=== PATIENT | female | born 1950 | race Caucasian/White ===

== ENCOUNTER → 2019-05-22 | Outpatient (CLI) | payer MEDICARE ==
[2019-05-22 08:59] LABS: Basophils # (A) 0.1 k/uL (0-0.2); Basophils % (A) 1 %; Eosinophils # (A) 0.3 k/uL (0-0.7); Eosinophils % (A) 5 %; HCT 44.9 % (34.0-46.0); HGB 14.9 gm/dL (11.4-16.0); Lymphocytes # (A) 2.2 k/uL (1.0-4.8); Lymphocytes % (A) 35 %; MCH 32.9 pg (25.0-35.0); MCHC 33.1 g/dL (31.0-37.0); MCV 99.2 fL (80.0-100.0); Mean Platelet Volume 7.4; Monocytes # (A) 0.5 k/uL (0-1.0); Monocytes % (A) 7 %; Neutrophils % (A) 47 %; Platelet Count 226 k/uL (150-450); RBC 4.53 m/uL (3.80-5.40); RDW 12.7 % (11.5-15.5); WBC 6.3 k/uL (3.8-10.6)
[2019-05-22 15:57] LABS: African American GFR (CKD) 59.3 (60.0-200.0); Albumin 4.2 g/dL (3.80-4.90); Anion Gap 9.3 mmol/L (4.00-12.00); BUN/Creat Ratio 10.91 Ratio (12.00-20.00); Calcium 9.4 mg/dL (8.7-10.3); Carbon Dioxide 27.7 mmol/L (21.6-31.8); Chol/HDL Ratio 2.65; Globulin 2.1 g/dL (1.6-3.3); LDL Cholesterol,Calculated 117.4 mg/dL (0.0-131.0); Non-African American GFR(CKD) 51.2 (60.0-200.0); Potassium 4.5 mmol/L (3.5-5.5); Total Bilirubin 0.3 mg/dL (0.2-1.2); Total Protein 6.3 g/dL (6.2-8.2); VLDL Calculation 17.6 mg/dL (5.00-40.00)
== END | disposition home or self-care (01) ==
LOC: LABWHC1 07:51
PROVIDERS: ATTEND Internal Medicine Critical Care Medicine
DX: Z00.00 Encounter for general adult medical examination without abnormal findings (principal); E78.00 Pure hypercholesterolemia, unspecified; E03.9 Hypothyroidism, unspecified; J44.9 Chronic obstructive pulmonary disease, unspecified
CPT/HCPCS: 36415; 80053; 80061; 84439; 84443; 85025

== ENCOUNTER 2019-07-09 06:36 | Inpatient (IN) | payer MEDICARE ==
[2019-07-09] MEDS ORDERED: IPRATROPIUM-ALBUTEROL 3 ML NEB INHALATION STA ×2 (06:55→06:58)
[2019-07-09] MEDS ORDERED: methylPREDNISolone SOD SUCCI 125 MG/2 ML VIAL IV STA (06:59)
[2019-07-09 07:23] LABS: Basophils % (A) 0 %; Eosinophils # (A) 0.1 k/uL (0-0.7); Eosinophils % (A) 1 %; HCT 40.4 % (34.0-46.0); HGB 13.5 gm/dL (11.4-16.0); Lymphocytes % (A) 7 %; MCH 32.6 pg (25.0-35.0); MCHC 33.4 g/dL (31.0-37.0); MCV 97.5 fL (80.0-100.0); Mean Platelet Volume 7.8; Monocytes # (A) 1.1 k/uL (0-1.0); Monocytes % (A) 8 %; Neutrophils # (A) 11.4 k/uL (1.3-7.7); Neutrophils % (A) 82 %; Platelet Count 295 k/uL (150-450); RBC 4.15 m/uL (3.80-5.40); RDW 13.2 % (11.5-15.5); WBC 13.9 k/uL (3.8-10.6)
[2019-07-09] MEDS ORDERED: cefTRIAXone IN SWFI 1,000 MG/10 ML SYRINGE IVP STA (07:25)
[2019-07-09] MEDS ORDERED: AZITHROMYCIN 500 MG in SODIUM CHLORIDE 0.9% 250 ML IVPB STA (07:25)
[2019-07-09 07:34] LABS: ALT 33 U/L (9-52); AST 20 U/L (14-36); African American GFR (CKD) >90 (>60 ml/min/1.73 sqM); Albumin 3.9 g/dL (3.5-5.0); Alkaline Phosphatase 94 U/L (38-126); Anion Gap 8 mmol/L; Blood Urea Nitrogen 11 mg/dL (7-17); Calcium 9.1 mg/dL (8.4-10.2); Carbon Dioxide 28 mmol/L (22-30); Chloride 104 mmol/L (98-107); Glucose 101 mg/dL (74-99); INR 0.9 (<1.2); Magnesium 2.1 mg/dL (1.6-2.3); Non-African American GFR(CKD) 88 (>60 ml/min/1.73 sqM); Partial Thromboplastin Time 26.1 sec (22.0-30.0); Prothrombin Time 9.7 sec (9.0-12.0); Sodium 140 mmol/L (137-145); Total Bilirubin 0.6 mg/dL (0.2-1.3); Total Protein 7.1 g/dL (6.3-8.2)
--- NOTE | 2019-07-09 07:36 | ED ---
General Adult HPI - General Source: patient, family, RN notes reviewed Mode of arrival: wheelchair Limitations: no limitations <Wesley Vargas - Last Filed: 07/09/19 08:52> <Queenie Brown - Last Filed: 07/09/19 23:11> - General Chief complaint: Shortness of Breath Stated complaint: RUCHI Time Seen by Provider: 07/09/19 06:51 - History of Present Illness Initial comments: 69-year-old female with a past history of COPD presents to the emergency department for shortness of breath. Patient states she has had a cough and cold for the past several days. States that 2 days ago this started to resolve but she started to feel more short of breath. States she thinks her COPD is "acting up." She denies fevers or chills. She states that she cannot catch her breath. States that when she stands up this gets worse. It is better at rest. She denies chest pain. Patient does not have a nebulizer at home but has been using inhaler.Patient has no other complaints at this time including chest pain, abdominal pain, nausea or vomiting, headache, or visual changes. (Wseley Vargas) - Related Data Home Medications Medication Instructions Recorded Confirmed Albuterol Sulfate [Ventolin HFA] 1 - 2 puff INHALATION RT-Q6H PRN 07/09/19 07/09/19 Cholecalciferol [Vitamin D3 (25 1,000 unit PO DAILY 07/09/19 07/09/19 Mcg = 1000 Iu)] Ibuprofen [Motrin Ib] 400 mg PO Q6H PRN 07/09/19 07/09/19 Umeclidinium Brm/Vilanterol Tr 1 puff INHALATION RT-DAILY 07/09/19 07/09/19 [Anoro Ellipta 62.5-25 Mcg INH] Allergies Allergy/AdvReac Type Severity Reaction Status Date / Time No Known Allergies Allergy Verified 07/09/19 08:11 Review of Systems ROS Other: All systems not noted in ROS Statement are negative. <Wesley Vargas - Last Filed: 07/09/19 08:52> ROS Other: All systems not noted in ROS Statement are negative. <Queenie Brown - Last Filed: 07/09/19 23:11> ROS Statement: Those systems with pertinent positive or pertinent negative responses have been documented in the HPI. Past Medical History Past Medical History: COPD History of Any Multi-Drug Resistant Organisms: None Reported Past Surgical History: Cholecystectomy Past Psychological History: No Psychological Hx Reported Smoking Status: Current every day smoker Past Alcohol Use History: None Reported Past Drug Use History: None Reported <Wesley Vargas P - Last Filed: 07/09/19 08:52> General Exam Limitations: no limitations General appearance: alert, in no apparent distress Head exam: Present: atraumatic, normocephalic, normal inspection Eye exam: Present: normal appearance, PERRL, EOMI. Absent: scleral icterus, conjunctival injection, periorbital swelling ENT exam: Present: normal exam, mucous membranes moist Neck exam: Present: normal inspection, full ROM. Absent: tenderness, meningismus, lymphadenopathy Respiratory exam: Present: accessory muscle use, decreased breath sounds (greatly diminished breath sounds bilaterally, pursed lip breathing). Absent: respiratory distress, wheezes, rales, rhonchi, stridor Cardiovascular Exam: Present: regular rate, normal rhythm, normal heart sounds. Absent: systolic murmur, diastolic murmur, rubs, gallop, clicks Neurological exam: Present: alert <Wesley Vargas P - Last Filed: 07/09/19 08:52> Course <Wesley Vargas P - Last Filed: 07/09/19 08:52> Vital Signs 07/09/19 07/09/19 07/09/19 06:49 07:28 07:38 Temperature 98.1 F Pulse Rate 121 H 102 H 102 H Respiratory 40 H Rate Blood Pressure 145/95 O2 Sat by Pulse 85 L Oximetry 07/09/19 07/09/19 07/09/19 07:39 07:51 08:14 Temperature Pulse Rate 96 104 H 94 Respiratory 24 Rate Blood Pressure 127/66 O2 Sat by Pulse 97 Oximetry 07/09/19 07/09/19 07/09/19 09:00 09:30 10:00 Temperature Pulse Rate 93 90 Respiratory 23 24 21 Rate Blood Pressure 129/64 123/92 122/78 O2 Sat by Pulse 96 97 94 L Oximetry 07/09/19 07/09/19 07/09/19 10:30 11:00 11:30 Temperature Pulse Rate Respiratory 22 20 Rate Blood Pressure 121/75 121/86 126/75 O2 Sat by Pulse 95 95 95 Oximetry 07/09/19 07/09/19 07/09/19 12:00 12:30 13:00 Temperature Pulse Rate Respiratory Rate Blood Pressure 117/65 121/80 131/82 O2 Sat by Pulse 96 97 96 Oximetry 07/09/19 07/09/19 07/09/19 13:30 14:00 14:30 Temperature Pulse Rate 92 Respiratory 21 Rate Blood Pressure 124/72 131/99 134/89 O2 Sat by Pulse 95 93 L Oximetry - Reevaluation(s) Reevaluation #1: 07/09/19 07:37 sinus tachycardia, ventricular rate 102, VA interval 120, QTC 466 (Wesley Vargas) Medical Decision Making - Lab Data Result diagrams: 07/09/19 07:10 07/09/19 07:10 <Wesley Vargas - Last Filed: 07/09/19 08:52> - Lab Data Result diagrams: 07/09/19 07:10 07/09/19 07:10 <Queenie Brown - Last Filed: 07/09/19 23:11> - Medical Decision Making patient initially hypoxic and tachycardic, started on BiPAP. She did have improvement in symptoms on this. CBC shows a white count of 13.9. CMP unremarkable.chest x-ray shows COPD correlate for right basilar pneumonia. lactic wnl. Patient was started on Rocephin and azithromycin. She was given 500 mL bolus of fluids. Dr. Walter is listed as patient's primary care, states this is the only doctor she sees. Dr. Brown did speak with Dr. Rooney's PA to offer admission to their service. At this time she recommends admitting to [facility] and called the consulting Dr. Walter. Patient reevaluated prior to admission, feeling much better on BiPAP, comfortable at this time. (Wesley Vargas) I was available for consultation in the emergency department. The history and physical exam were done by the midlevel provider. I was consulted for this patients care. I reviewed the case with the midlevel provider and based on their presentation of the patient, I agree with the assessment, medical decision making and plan of care as documented. I discussed the case with Dr. Lisa who accepted admission and Dr. Bashas PA accepted consult on the patient Chart was dictated using [employer] dictation software. Attempts were made to correct any dictation errors however some typographical errors may persist. (Queenie Brown) - Lab Data Lab Results 07/09/19 07/09/19 07/09/19 Range/Units 07:10 07:10 07:10 WBC 13.9 H (3.8-10.6) k/uL RBC 4.15 (3.80-5.40) m/uL Hgb 13.5 (11.4-16.0) gm/dL Hct 40.4 (34.0-46.0) % MCV 97.5 (80.0-100.0) fL MCH 32.6 (25.0-35.0) pg MCHC 33.4 (31.0-37.0) g/dL RDW 13.2 (11.5-15.5) % Plt Count 295 (150-450) k/uL Neutrophils % 82 % Lymphocytes % 7 % Monocytes % 8 % Eosinophils % 1 % Basophils % 0 % Neutrophils # 11.4 H (1.3-7.7) k/uL Lymphocytes # 1.0 (1.0-4.8) k/uL Monocytes # 1.1 H (0-1.0) k/uL Eosinophils # 0.1 (0-0.7) k/uL Basophils # 0.0 (0-0.2) k/uL PT 9.7 (9.0-12.0) sec INR 0.9 (<1.2) APTT 26.1 (22.0-30.0) sec Sodium 140 (137-145) mmol/L Potassium 4.0 (3.5-5.1) mmol/L Chloride 104 (98-107) mmol/L Carbon Dioxide 28 (22-30) mmol/L Anion Gap 8 mmol/L BUN 11 (7-17) mg/dL Creatinine 0.71 (0.52-1.04) mg/dL Est GFR (CKD-EPI)AfAm >90 (>60 ml/min/1.73 sqM) Est GFR (CKD-EPI)NonAf 88 (>60 ml/min/1.73 sqM) Glucose 101 H (74-99) mg/dL Plasma Lactic Acid Nando (0.7-2.0) mmol/L Calcium 9.1 (8.4-10.2) mg/dL Magnesium 2.1 (1.6-2.3) mg/dL Total Bilirubin 0.6 (0.2-1.3) mg/dL AST 20 (14-36) U/L ALT 33 (9-52) U/L Alkaline Phosphatase 94 (38-126) U/L Troponin I (0.000-0.034) ng/mL NT-Pro-B Natriuret Pep pg/mL Total Protein 7.1 (6.3-8.2) g/dL Albumin 3.9 (3.5-5.0) g/dL 07/09/19 07/09/19 07/09/19 Range/Units 07:10 07:10 07:10 WBC (3.8-10.6) k/uL RBC (3.80-5.40) m/uL Hgb (11.4-16.0) gm/dL Hct (34.0-46.0) % MCV (80.0-100.0) fL MCH (25.0-35.0) pg MCHC (31.0-37.0) g/dL RDW (11.5-15.5) % Plt Count (150-450) k/uL Neutrophils % % Lymphocytes % % Monocytes % % Eosinophils % % Basophils % % Neutrophils # (1.3-7.7) k/uL Lymphocytes # (1.0-4.8) k/uL Monocytes # (0-1.0) k/uL Eosinophils # (0-0.7) k/uL Basophils # (0-0.2) k/uL PT (9.0-12.0) sec INR (<1.2) APTT (22.0-30.0) sec Sodium (137-145) mmol/L Potassium (3.5-5.1) mmol/L Chloride (98-107) mmol/L Carbon Dioxide (22-30) mmol/L Anion Gap mmol/L BUN (7-17) mg/dL Creatinine (0.52-1.04) mg/dL Est GFR (CKD-EPI)AfAm (>60 ml/min/1.73 sqM) Est GFR (CKD-EPI)NonAf (>60 ml/min/1.73 sqM) Glucose (74-99) mg/dL Plasma Lactic Acid Nando 1.0 (0.7-2.0) mmol/L Calcium (8.4-10.2) mg/dL Magnesium (1.6-2.3) mg/dL Total Bilirubin (0.2-1.3) mg/dL AST (14-36) U/L ALT (9-52) U/L Alkaline Phosphatase (38-126) U/L Troponin I <0.012 (0.000-0.034) ng/mL NT-Pro-B Natriuret Pep 319 pg/mL Total Protein (6.3-8.2) g/dL Albumin (3.5-5.0) g/dL Disposition Is patient prescribed a controlled substance at d/c from ED?: No Time of Disposition: 08:53 <Wesley Vargas P - Last Filed: 07/09/19 08:52> <Queenie Brown A - Last Filed: 07/09/19 23:11> Clinical Impression: Respiratory failure, Hypoxia, Pneumonia Disposition: ADMITTED IP TO THIS HOSP Condition: Fair
--- NOTE | 2019-07-09 07:56 | XR ---
EXAMINATION TYPE: XR chest 1V portable DATE OF EXAM: 07/09/2019 COMPARISON: 01/10/2018 HISTORY: Shortness of breath TECHNIQUE: Single frontal view of the chest is obtained. FINDINGS: There is hyperinflation with right basilar subsegmental consolidation. Hypertrophic change of the spine. No overt failure. Pulmonary arteries prominent correlate for pulmonary arterial hypert ension. Surgical clips in the right upper quadrant noted. IMPRESSION: COPD correlate for right basilar pneumonia.
[2019-07-09] MEDS ORDERED: SODIUM CHLORIDE 0.9% 500 ML 500 ML IV STA (08:08)
[2019-07-09] MEDS ORDERED: PNEUMOCOCCAL VACC-PNEUMOVAX 23 25 MCG/0.5 ML VIAL IM ONE (10:33)
--- NOTE | 2019-07-09 14:18 | P.HPIM ---
History of Present Illness This is a pleasant 69 years old female with past medical history of COPD and osteoarthritis, cigarette smoker. she follows with Dr. Blevins and as an outpatient was also her family doctor. . Presents because of dyspnea . Patient had come called about 10 days ago however since Monday she started getting more short of breath associated with cough and phlegm, possible clear or an normal color. Associated with chest tightness and some chest pain which is resolved now. Patient smokes about half pack per day and quit about 3 weeks ago. No alcohol. Patient denies abdominal pain or nausea vomiting. No change in urine or bowel h abits. No fever on admission patient was tachycardic at 121 and tachypneic at 40, Vitas looks stable.. Labs reviewed showing mild leukocytosis of 13.9 K, however electrolytes, creatinine, liver enzymes and troponin are within normal limits, proBNP is 319. EKG showing sinus tachycardia at [address]-T changes. QTC is 466. Chest x-ray: COPD and possible right basal pneumonia. In the emergency room patient was started on Zithromax and Rocephin, she was given steroids and IV fluids. Review of Systems CONSTITUTIONAL: No fever, no malaise, no fatigue. HEENT: No recent visual problems or hearing problems. Denied any sore throat. CARDIOVASCULAR: No orthopnea, PND, no palpitations, no syncope. PULMONARY: no hemoptysis. GASTROINTESTINAL: No diarrhea, no nausea, no vomiting, no abdominal pain. Normoactive bowel sounds. NEUROLOGICAL: No headaches, no weakness, no numbness. HEMATOLOGICAL: Denies any bleeding or petechiae. GENITOURINARY: Denies any burning micturition, frequency, or urgency. MUSCULOSKELETAL/RHEUMATOLOGICAL: Denies any joint pain, swelling, or any muscle pain. ENDOCRINE: Denies any polyuria or polydipsia. Past Medical History Past Medical History: COPD, Osteoarthritis (OA) Additional Past Medical History / Comment(s): Arthritis in bilateral hands History of Any Multi-Drug Resistant Organisms: None Reported Past Surgical History: Cholecystectomy, Tonsillectomy Past Anesthesia/Blood Transfusion Reactions: No Reported Reaction Smoking Status: Current some day smoker - Past Family History Father Family Medical History: Cancer Additional Family Medical History / Comment(s): Father of lung cancer at the age of 52 yrs. He was a ex smoker. Mother Family Medical History: Congestive Heart Failure (CHF) Additional Family Medical History / Comment(s): Mother of CHF at the age of 79yrs. Medications and Allergies Home Medications Medication Instructions Recorded Confirmed Type Albuterol Sulfate [Ventolin HFA] 1 - 2 puff INHALATION RT-Q6H PRN 07/09/19 07/09/19 History Cholecalciferol [Vitamin D3 (25 1,000 unit PO DAILY 07/09/19 07/09/19 History Mcg = 1000 Iu)] Ibuprofen [Motrin Ib] 400 mg PO Q6H PRN 07/09/19 07/09/19 History Umeclidinium Brm/Vilanterol Tr 1 puff INHALATION RT-DAILY 07/09/19 07/09/19 History [Anoro Ellipta 62.5-25 Mcg INH] Allergies Allergy/AdvReac Type Severity Reaction Status Date / Time No Known Allergies Allergy Verified 07/09/19 08:11 Physical Exam Vitals: Vital Signs Temp Pulse Resp BP Pulse Ox 07/09/19 13:30 124/72 95 07/09/19 13:00 131/82 96 07/09/19 12:30 121/80 97 07/09/19 12:00 117/65 96 07/09/19 11:30 20 126/75 95 07/09/19 11:00 121/86 95 07/09/19 10:30 22 121/75 95 07/09/19 10:00 21 122/78 94 L 07/09/19 09:30 90 24 123/92 97 07/09/19 09:00 93 23 129/64 96 07/09/19 08:14 94 24 127/66 97 07/09/19 07:51 104 H 07/09/19 07:39 96 07/09/19 07:38 102 H 07/09/19 07:28 102 H 07/09/19 06:49 98.1 F 121 H 40 H 145/95 85 L Intake and Output 07/08/19 07/09/19 07/09/19 22:59 06:59 14:59 Other: Weight 58.967 kg 58.967 kg GENERAL: The patient is alert and oriented x3, not in any acute distress. Well developed, well nourished. HEENT: Pupils are round and equally reacting to light. EOMI. No scleral icterus. No conjunctival pallor. Normocephalic, atraumatic. No pharyngeal erythema. No thyromegaly. CARDIOVASCULAR: S1 and S2 present. No murmurs, rubs, or gallops. -PULMONARY: Chest is clear to auscultation, decreased air entry on both sides, scattered wheezing. And right basal crepitation ABDOMEN: Soft, nontender, nondistended, normoactive bowel sounds. No palpable organomegaly. MUSCULOSKELETAL: No joint swelling or deformity. EXTREMITIES: No cyanosis, clubbing, or pedal edema. NEUROLOGICAL: Gross neurological examination did not reveal any focal deficits. SKIN: No rashes. No petechiae Results CBC & Chem 7: 07/09/19 07:10 07/09/19 07:10 Labs: Abnormal Lab Results - Last 24 Hours (Table) 07/09/19 07/09/19 Range/Units 07:10 07:10 WBC 13.9 H (3.8-10.6) k/uL Neutrophils # 11.4 H (1.3-7.7) k/uL Monocytes # 1.1 H (0-1.0) k/uL Glucose 101 H (74-99) mg/dL Thrombosis Risk Factor Assmnt - Choose All That Apply Any of the Below Risk Factors Present?: Yes Each Factor Represents 1 point: Abnormal pulmonary function (COPD), Serious lung disease incl. pneumonia (< 1month) Each Risk Factor Represents 2 Points: Age 61-74 years Other congenital or acquired thrombophilia - If yes, enter type in comment: No Thrombosis Risk Factor Assessment Total Risk Factor Score: 4 Thrombosis Risk Factor Assessment Level: Moderate Risk Assessment and Plan Assessment: Acute COPD exacerbation possible right basal committing acquired pneumonia Nicotine dependence Osteoarthritis Plan: This is a pleasant 69 years old female who presents with COPD and pneumonia. Continue with antibiotics and steroids. Continue with bronchodilators. Gentle hydration. Labs and medication were reviewed.. Continue same treatment. Continue with symptomatic treatment. Resume home medication. Monitor lytes and vitals. DVT and GI prophylaxis. Further recommendations of the clinical course of the patient DVT prophylaxis: Subcutaneous heparin GI Prophylaxis: Pepcid PT/OT: Pending Prognosis is guarded
[2019-07-09] MEDS: methylPREDNISolone SOD SUCCI 125 MG/2 ML VIAL IV SCH ×3 (14:22→23:59)
[2019-07-09] MEDS: SODIUM CHLORIDE 0.9% 1,000 ML IV SCH (14:34)
[2019-07-09] MEDS: IPRATROPIUM-ALBUTEROL 3 ML NEB INHALATION PRN ×2 (16:03→20:41)
--- NOTE | 2019-07-09 17:09 | CONS ---
CONSULTATION PULMONARY/CRITICAL CARE CONSULTATION: DATE OF CONSULTATION: July 09, 2019 REASON FOR CONSULTATION: Shortness of breath. HISTORY OF PRESENT ILLNESS: This is a 69-year-old female who sees my partner Dr. Walter as her family doctor and also has her concert singer. She apparently presents to the emergency room on July 09 with complaints of increasing shortness of breath. Apparently her shortness of breath has been going on for a couple days. She has been apparently battling a cold and cough for a number of days as well. She started coughing up some phlegm. It was slightly yellow in color. She has chest tightness, wheezing and shortness of breath. She had lots of chest congestion. Initially when she came in, she could not "catch her breath". Apparently when she gets up and walks or when she stands, the breathing gets worse. The patient apparently has been using her breathing medications at home and her nebulizer machine without much better benefit. For that reason, she came into the emergency room to be evaluated. 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 This is where we evaluate the patient. She is feeling much better. A BiPAP device was in the room. She is currently not using it. She does feel much improved. HOME MEDICATIONS: Include albuterol inhaler, vitamin D3, Motrin, and Anoro. ALLERGIES: Denied. MEDICAL HISTORY: Primarily severe COPD. SURGICAL HISTORY: Includes cholecystectomy. SOCIAL HISTORY: Positive for ongoing and current and significant tobacco user. She denies any alcohol use or illicit drug use. ALLERGIES: Allergies denied. FAMILY HISTORY: Otherwise unremarkable. Parents were apparently healthy. REVIEW OF SYSTEMS: CONSTITUTIONAL negative. NEUROLOGIC negative. HEENT negative. CARDIOVASCULAR negative. PULMONARY shortness of breath, chest tightness, wheezing, cough, chest congestion and phlegm production. GI negative. negative. RHEUMATOLOGIC negative. IMMUNOLOGIC negative ENDOCRINOLOGIC negative. DERMATOLOGIC negative. PHYSICAL EXAMINATION: VITAL SIGNS: Current vital signs are reviewed. Her temperature is 98.1. Heart rate 92, respiratory rate 16, blood pressure 134/89, mean 104, 3 L saturation 93%. GENERAL: Appears in no acute distress. HEENT examination is grossly unremarkable. Mucous membranes are moist. No oral lesions. NECK: Supple. Full range of motion. No adenopathy or thyromegaly. Neck veins are flat. CARDIOVASCULAR examination reveals regular rhythm and rate. Heart rate about mid 80s. S1, S2 normal. No distinct murmur. No S3, S4. LUNGS: Reveal severely diminished breath sounds throughout. She has expiratory wheezes and rhonchi. There is prolongation on forced maneuver. Adventitious lung sounds are more prominent on forced maneuver. ABDOMEN: Soft. Bowel sounds are heard. EXTREMITIES are intact. No cyanosis, clubbing, or edema. SKIN: Without rash. NEUROLOGIC: Examination is brief but nonfocal. X-RAY: That was done on day of admission shows a possible infiltrate in the right lower lobe. Upper lung coley look relatively clear. There is some hyperlucency and hyperinflation consistent with a diagnosis of COPD. LABS: Reviewed. White count 13.9, hemoglobin 13.5, hematocrit 40.4, platelet count 395,000. PT/INR, PTT normal. Electrolytes are completely normal. Glucose 101. Lactic acid 1.0. N-terminal proBNP 319. Troponin less than 0.012. Microbiology is pending or negative. Medications are reviewed. She is currently on a 0.9 IV at 75 mL an hour. Solu-Medrol 60 mg q.6h. Albuterol and Atrovent updrafts q.4 hours p.r.n., subcu heparin, famotidine, vitamin D3, and no antibiotics at this time. ASSESSMENT: 1. Chronic obstructive pulmonary disease exacerbation complicated by purulent tracheobronchitis and possibly complicated by bronchopneumonia right lower lobe. 2. History of ongoing tobacco use until recently. 3. Severe/stage 3 chronic obstructive pulmonary disease with an FEV1 that is 47% of predicted. PLAN: The patient's antibiotics will be added back. Zithromax and Rocephin appear to be reasonable options. In addition, we will add some Pulmicort and Perforomist back to her regimen. She will continue on Solu-Medrol 60 mg q.6. She also continue on DuoNeb q.i.d. and p.r.n. Additional recommendations and suggestions are forthcoming. Prognosis is guarded. No additional recommendations are made. We encourage patient to stop smoking. She states she stopped smoking 3 weeks ago. She does have quite severe COPD. She will be admitted to room 331 according to the nurse in the emergency room. MMODL / IJN: [id number] /
[2019-07-09] MEDS: FORMOTEROL FUMARATE 20 MCG/2 ML NEBU INHALATION SCH (20:41)
[2019-07-09] MEDS: BUDESONIDE 1 MG/2 ML NEBU INHALATION SCH (20:41)
[2019-07-09] MEDS: HEPARIN SODIUM,PORCINE 5,000 UNIT/ML 1 ML VIAL SQ SCH (21:27)
[2019-07-09] MEDS: FAMOTIDINE 20 MG/2 ML VIAL IV SCH (21:27)
[2019-07-10] MEDS: IPRATROPIUM-ALBUTEROL 3 ML NEB INHALATION PRN ×4 (01:52→17:25)
[2019-07-10] MEDS: methylPREDNISolone SOD SUCCI 125 MG/2 ML VIAL IV SCH ×3 (06:02→18:05)
[2019-07-10] MEDS: FORMOTEROL FUMARATE 20 MCG/2 ML NEBU INHALATION SCH ×2 (06:10→17:23)
[2019-07-10] MEDS: BUDESONIDE 1 MG/2 ML NEBU INHALATION SCH ×2 (06:10→17:23)
[2019-07-10 08:13] LABS: Basophils % (A) 0 %; Eosinophils % (A) 0 %; HCT 38.7 % (34.0-46.0); HGB 12.5 gm/dL (11.4-16.0); Lymphocytes # (A) 0.8 k/uL (1.0-4.8); Lymphocytes % (A) 7 %; MCH 32.4 pg (25.0-35.0); MCHC 32.4 g/dL (31.0-37.0); Mean Platelet Volume 8.8; Monocytes # (A) 0.5 k/uL (0-1.0); Monocytes % (A) 4 %; Neutrophils % (A) 88 %; Platelet Count 374 k/uL (150-450); RBC 3.87 m/uL (3.80-5.40); RDW 13.2 % (11.5-15.5); WBC 11.3 k/uL (3.8-10.6)
[2019-07-10] MEDS: CHOLECALCIFEROL 1,000 UNIT TAB PO SCH (08:14)
[2019-07-10] MEDS: AZITHROMYCIN 500 MG TAB PO SCH (08:14)
[2019-07-10] MEDS: FAMOTIDINE 20 MG/2 ML VIAL IV SCH (08:14)
[2019-07-10] MEDS: HEPARIN SODIUM,PORCINE 5,000 UNIT/ML 1 ML VIAL SQ SCH ×2 (08:14→20:33)
[2019-07-10 08:20] LABS: African American GFR (CKD) >90 (>60 ml/min/1.73 sqM); Anion Gap 5 mmol/L; Blood Urea Nitrogen 18 mg/dL (7-17); Calcium 9.2 mg/dL (8.4-10.2); Carbon Dioxide 28 mmol/L (22-30); Chloride 107 mmol/L (98-107); Glucose 134 mg/dL (74-99); Non-African American GFR(CKD) >90 (>60 ml/min/1.73 sqM); Sodium 140 mmol/L (137-145)
[2019-07-10] MEDS: SODIUM CHLORIDE 0.9% 1,000 ML IV SCH ×2 (12:02→20:36)
--- NOTE | 2019-07-10 12:38 | P.PN ---
Subjective This is a pleasant 69 years old female with past medical history of COPD and osteoarthritis, cigarette smoker. she follows with Dr. Blevins and as an outpatient was also her family doctor. . Presents because of dyspnea . Patient had come called about 10 days ago however since Monday she started getting more short of breath associated with cough and phlegm, possible clear or an normal color. Associated with chest tightness and some chest pain which is resolved now. Patient smokes about half pack per day and quit about 3 weeks ago. No alcohol. Patient denies abdominal pain or nausea vomiting. No change in urine or bowel habits. No fever on admission patient was tachycardic at 121 and tachypneic at 40, Vitas looks stable.. Labs reviewed showing mild leukocytosis of 13.9 K, however electrolytes, creatinine, liver enzymes and troponin are within normal limits, proBNP is 319. EKG showing sinus tachycardia at [address]-T changes. QTC is 466. Chest x-ray: COPD and possible right basal pneumonia. In the emergency room patient was started on Zithromax and Rocephin, she was given steroids and IV fluids. 07/10/2019 Patient feels somewhat better regarding her dyspnea and coughing however she still symptomatic.oxygen saturation is 97. postoperative Vitas looks stable. Labs review which showed WBC improvement to 11.3 K, hemoglobin stable. L4-S1 normal as well as creatinine 0.6. Influenza is negative. Blood cultures are showing no growth so far. Patient currently on Zithromax and Rocephin as well as Solu-Medrol 60 mg daily. Also she is in normal sinus 75 milliliters per hour review of systems CONSTITUTIONAL: No fever, no malaise, no fatigue. HEENT: No recent visual problems or hearing problems. Denied any sore throat. CARDIOVASCULAR: No orthopnea, PND, no palpitations, no syncope. PULMONARY: no hemoptysis. GASTROINTESTINAL: No diarrhea, no nausea, no vomiting, no abdominal pain. Normoactive bowel sounds. NEUROLOGICAL: No headaches, no weakness, no numbness. HEMATOLOGICAL: Denies any bleeding or petechiae. GENITOURINARY: Denies any burning micturition, frequency, or urgency. MUSCULOSKELETAL/RHEUMATOLOGICAL: Denies any joint pain, swelling, or any muscle pain. ENDOCRINE: Denies any polyuria or polydipsia. Objective - Vital Signs Vital signs: Vital Signs Temp 98.4 F 07/10/19 04:49 Pulse 84 07/10/19 12:11 Resp 18 07/10/19 04:49 BP 123/65 07/10/19 04:49 Pulse Ox 97 07/10/19 04:49 Intake & Output 07/09/19 07/10/19 07/10/19 18:59 06:59 18:59 Weight 58.967 kg Other: Voiding Method Toilet Toilet # Voids 2 - Labs CBC & Chem 7: 07/10/19 07:28 07/10/19 07:28 Labs: Abnormal Lab Results - Last 24 Hours (Table) 07/10/19 07/10/19 Range/Units 07:28 07:28 WBC 11.3 H (3.8-10.6) k/uL Neutrophils # 10.0 H (1.3-7.7) k/uL Lymphocytes # 0.8 L (1.0-4.8) k/uL BUN 18 H (7-17) mg/dL Glucose 134 H (74-99) mg/dL Microbiology - Last 24 Hours (Table) 07/09/19 07:30 Blood Culture - Preliminary Blood No Growth after 24 hours
--- NOTE | 2019-07-10 12:40 | CDI ---
Documentation Clarification Form Date: 07/10/2019 12:25:05 PM From: Catherine Wilson RN CCDS Admit Date: 07/09/2019 8:49:00 AM Patient Name: Luna Fleming Visit Number: [id number] Discharge Date: ATTENTION: The Clinical Documentation Specialists (CDI) and [facility] Coding Staff appreciate your assistance in clarifying documentation. Please respond to the clarification below the line at the bottom and electronically sign. The CDI & [facility] Coding staff will review the response and follow-up if needed. Please note: Queries are made part of the Legal Health Record. If you have any questions, please contact the author of this message via ITS. Dr. Del Angel Sheet The patient presented to the ED with cough and shortness of breath. History/Risk Factors:69 year old female with a medical history of Severe / stage 3 chronic obstructive pulmonary disease with an FEV1 that is 47% of predicted. Tobacco use: Cigarette smoker. Clinical Indicators: Vital signs: 07/09 06:49 145/95 121 98.1 40 84% ra Lung/Breathing assessment: 07/09 H & P Chest is clear to auscultation, decreased air entry on both sides, scattered wheezing. And right basal crepitation. Treatment: Solumedrol ivp q 6 hrs; Zithromax 500mg po daily; Rocephin ivpb daily Breathing tx Duoneb; Pulmicort; Performist; 07/09 07:12 Bipap 10:00 94% bipap d/c 07/09 14:10; 07/09 14:30 93% 3L nasal cannula In your professional opinion, can you please clarify if these findings signify one of the following conditions? * Acute Respiratory Failure * Acute Respiratory Distress * Acute Respiratory Insufficiency * Other Diagnosis, please specify * Unable to determine Specificity: If known, further specify (if known): With hypercapnia? (pCO2 >50 and pH <7.35) With hypoxia? (pO2 <60 mm Hg or SpO2 <91% on room air) (Last Query Form Revision: March 2019) Dx: acute resp failure MTDD
--- NOTE | 2019-07-10 13:41 | P.PN ---
Subjective Progress Note Date: 07/10/19 Principal diagnosis: Acute exacerbation of chronic obstructive pulmonary disease complicated by purulent tracheobronchitis and suspected bronchopneumonia the right lower lobe. The patient is seen today 07/10/2019 in follow-up on the regular medical floor. She is currently sitting up in bed. Awake and alert in no acute distress. Breathing easier today as compared to yesterday. Maintaining good O2 saturations in the high 90s on 3 L/m per nasal cannula. Afebrile. Hemodyna mically stable. White count 11.3. Hemoglobin 12.5. Creatinine 0.61. She is continued on DuoNeb inhalations, Pulmicort and Perforomist inhalations, IV Solu Medrol. Antibiotics in the form of ceftriaxone and azithromycin. Objective - Vital Signs Vital signs: Vital Signs Temp 97.6 F 07/10/19 12:39 Pulse 79 07/10/19 12:39 Resp 20 07/10/19 12:39 BP 136/62 07/10/19 12:39 Pulse Ox 99 07/10/19 12:39 Intake & Output 07/09/19 07/10/19 07/10/19 18:59 06:59 18:59 Weight 58.967 kg Other: Voiding Method Toilet Toilet # Voids 2 - Exam GENERAL EXAM: Alert, active, comfortable in no apparent distress. HEAD: Normocephalic. EYES: Normal reaction of pupils, equal size. NOSE: Clear with pink turbinates. THROAT: No erythema or exudates. NECK: No masses, no JVD. CHEST: No chest wall deformity. LUNGS: Equal air entry with few scattered rhonchi, end expiratory wheeze. Diminished. CVS: S1 and S2 normal with no audible murmur, regular rhythm. ABDOMEN: No hepatosplenomegaly, normal bowel sounds, no guarding or rigidity. SPINE: No scoliosis or deformity SKIN: No rashes CENTRAL NERVOUS SYSTEM: No focal deficits, tone is normal in all 4 extremities. EXTREMITIES: There is no peripheral edema. No clubbing, no cyanosis. Peripheral pulses are intact. - Labs CBC & Chem 7: 07/10/19 07:28 07/10/19 07:28 Labs: Abnormal Lab Results - Last 24 Hours (Table) 07/10/19 07/10/19 Range/Units 07:28 07:28 WBC 11.3 H (3.8-10.6) k/uL Neutrophils # 10.0 H (1.3-7.7) k/uL Lymphocytes # 0.8 L (1.0-4.8) k/uL BUN 18 H (7-17) mg/dL Glucose 134 H (74-99) mg/dL Microbiology - Last 24 Hours (Table) 07/09/19 07:30 Blood Culture - Preliminary Blood No Growth after 24 hours Assessment and Plan Assessment: #1 Acute exacerbation of chronic obstructive pulmonary disease, complicated by purulent tracheobronchitis and possible bronchopneumonia of the right lower lobe. #2 Chronic and ongoing tobacco dependence. #3 History of severe stage III chronic obstructive pulmonary disease with FEV1 value of 47% of predicted. Plan: The patient was seen and evaluated by Dr. Rooney. She is nearly back to her baseline. We'll continue with the current treatment plan. Increase her activity as tolerated. Titrate down the FiO2 as tolerated. Follow-up chest x- ray in the a.m. Probable discharge in the a.m. We will continue to follow. I, the cosigning physician, performed a history & physical examination of the patient. Lungs sounds with few scattered rhonchi, end expiratory wheeze, diminished. Maintaining good O2 saturations in the 90s on 3 L/m per nasal cannula. I discussed the assessment and plan of care with my nurse practitioner, Mariama Kerr. I attest to the above note as dictated by her.
[2019-07-10] MEDS ORDERED: IBUPROFEN 400 MG TAB PO STA (20:00)
[2019-07-10] MEDS: FAMOTIDINE 20 MG TAB PO SCH (20:33)
[2019-07-11] MEDS: methylPREDNISolone SOD SUCCI 125 MG/2 ML VIAL IV SCH ×5 (00:01→23:55)
[2019-07-11] MEDS: IPRATROPIUM-ALBUTEROL 3 ML NEB INHALATION PRN ×6 (01:04→19:19)
[2019-07-11] MEDS: SODIUM CHLORIDE 0.9% 1,000 ML IV SCH (07:51)
[2019-07-11] MEDS: AZITHROMYCIN 500 MG TAB PO SCH (07:51)
[2019-07-11] MEDS: FAMOTIDINE 20 MG TAB PO SCH ×2 (07:51→19:35)
[2019-07-11] MEDS: HEPARIN SODIUM,PORCINE 5,000 UNIT/ML 1 ML VIAL SQ SCH ×2 (07:51→19:35)
[2019-07-11] MEDS: CHOLECALCIFEROL 1,000 UNIT TAB PO SCH (07:51)
[2019-07-11] MEDS: BUDESONIDE 1 MG/2 ML NEBU INHALATION SCH ×2 (08:09→19:19)
[2019-07-11] MEDS: FORMOTEROL FUMARATE 20 MCG/2 ML NEBU INHALATION SCH ×2 (08:09→19:19)
--- NOTE | 2019-07-11 08:56 | P.PN ---
Subjective This is a pleasant 69 years old female with past medical history of COPD and osteoarthritis, cigarette smoker. she follows with Dr. Blevins and as an outpatient was also her family doctor. . Presents because of dyspnea . Patient had come called about 10 days ago however since Monday she started getting more short of breath associated with cough and phlegm, possible clear or an normal color. Associated with chest tightness and some chest pain which is resolved now. Patient smokes about half pack per day and quit about 3 weeks ago. No alcohol. Patient denies abdominal pain or nausea vomiting. No change in urine or bowel habits. No fever on admission patient was tachycardic at 121 and tachypneic at 40, Vitas looks stable.. Labs reviewed showing mild leukocytosis of 13.9 K, however electrolytes, creatinine, liver enzymes and troponin are within normal limits, proBNP is 319. EKG showing sinus tachycardia at [address]-T changes. QTC is 466. Chest x-ray: COPD and possible right basal pneumonia. In the emergency room patient was started on Zithromax and Rocephin, she was given steroids and IV fluids. 07/10/2019 Patient feels somewhat better regarding her dyspnea and coughing however she still symptomatic.oxygen saturation is 97. postoperative Vitas looks stable. Labs review which showed WBC improvement to 11.3 K, hemoglobin stable. L4-S1 normal as well as creatinine 0.6. Influenza is negative. Blood cultures are showing no growth so far. Patient currently on Zithromax and Rocephin as well as Solu-Medrol 60 mg daily. Also she is in normal sinus 75 milliliters per hour 07/11/2019 Patient states that she had dropped last night and she had difficulty breathing which persisted and this morning. On exam she has decreased air entry and bilateral wheezing. High 90s on 3 L oxygen. Risks of Vitas looks stable. Labs are still pending. Repeat chest x-ray still pending. Recommend follow-up with the patient. Pulmonary team are following the patient as well. Patient is counseled extensively. Discussed with staff review of systems CONSTITUTIONAL: No fever, no malaise, no fatigue. HEENT: No recent visual problems or hearing problems. Denied any sore throat. CARDIOVASCULAR: No orthopnea, PND, no palpitations, no syncope. PULMONARY: no hemoptysis. GASTROINTESTINAL: No diarrhea, no nausea, no vomiting, no abdominal pain. Normoactive bowel sounds. NEUROLOGICAL: No headaches, no weakness, no numbness. HEMATOLOGICAL: Denies any bleeding or petechiae. GENITOURINARY: Denies any burning micturition, frequency, or urgency. MUSCULOSKELETAL/RHEUMATOLOGICAL: Denies any joint pain, swelling, or any muscle pain. ENDOCRINE: Denies any polyuria or polydipsia. Active Medications Generic Name Dose Route Start Last Admin Trade Name Freq PRN Reason Stop Dose Admin Albuterol/Ipratropium 3 ml 07/09/19 08:46 07/11/19 08:10 Duoneb 0.5 Mg-3 Mg/3 Ml Soln INHALATION 3 ml RT-Q4H PRN Administration Shortness Of Breath Or Wheezing Azithromycin 500 mg 07/10/19 09:00 07/11/19 07:51 Zithromax PO 500 mg DAILY MICHOACANO Administration Budesonide 1 mg 07/09/19 20:00 07/11/19 08:09 Pulmicort INHALATION 1 mg RT-BID MICHOACANO Administration Cholecalciferol 1,000 unit 07/10/19 09:00 07/11/19 07:51 Vitamin D3 (25 Mcg = 1000 Iu) PO 1,000 unit DAILY MICHOACANO Administration Famotidine 20 mg 07/10/19 21:00 07/11/19 07:51 Pepcid PO 20 mg Q12HR MICHOACANO Administration Formoterol Fumarate 20 mcg 07/09/19 20:00 07/11/19 08:09 Perforomist INHALATION 20 mcg RT-BID MICHOACANO Administration Heparin Sodium (Porcine) 5,000 unit 07/09/19 21:00 07/11/19 07:51 Heparin SQ 5,000 unit Q12HR MICHOACANO Administration Sodium Chloride 1,000 mls @ 75 mls/hr 07/09/19 14:15 07/11/19 07:51 Saline 0.9% IV 75 mls/hr .[id number] MICHOACANO Administration Ceftriaxone Sodium 1 gm/ 50 mls @ 100 mls/hr 07/10/19 09:00 07/11/19 07:51 Sodium Chloride IVPB 100 mls/hr Q24HR MICHOACANO Administration Methylprednisolone Sodium Succinate 60 mg 07/09/19 12:00 07/11/19 05:45 Solu-Medrol IV 60 mg Q6HR MICHOACANO Administration Objective - Vital Signs Vital signs: Vital Signs Temp 97.8 F 07/11/19 05:00 Pulse 96 07/11/19 08:34 Resp 19 07/11/19 05:00 BP 127/66 07/11/19 05:00 Pulse Ox 99 07/11/19 05:00 Intake & Output 07/10/19 07/11/19 07/11/19 18:59 06:59 18:59 Intake Total 575 900 Balance 575 900 Intake: Intake, IV Titration 575 900 Amount Sodium Chloride 0.9% 1, 525 900 000 ml @ 75 mls/hr IV . [id number] MICHOACANO Rx#:[id number] cefTRIAXone 1 gm In 50 Sodium Chloride 0.9% 50 ml @ 100 mls/hr IVPB Q24HR MICHOACANO Rx#:[id number] Other: Voiding Method Toilet Toilet # Voids 1 - Exam GENERAL: The patient is alert and oriented x3, not in any acute distress. Well developed, well nourished. HEENT: Pupils are round and equally reacting to light. EOMI. No scleral icterus. No conjunctival pallor. Normocephalic, atraumatic. No pharyngeal erythema. No thyromegaly. CARDIOVASCULAR: S1 and S2 present. No murmurs, rubs, or gallops. PULMONARY: Chest is clear to auscultation, no wheezing or crackles. ABDOMEN: Soft, nontender, nondistended, normoactive bowel sounds. No palpable organomegaly. MUSCULOSKELETAL: No joint swelling or deformity. EXTREMITIES: No cyanosis, clubbing, or pedal edema. NEUROLOGICAL: Gross neurological examination did not reveal any focal deficits. SKIN: No rashes. no petechiae. - Labs CBC & Chem 7: 07/10/19 07:28 07/10/19 07:28 Labs: Microbiology - Last 24 Hours (Table) 07/09/19 07:30 Blood Culture - Preliminary Blood No Growth after 24 hours Assessment and Plan Assessment: Acute COPD exacerbation possible right basal committing acquired pneumonia Nicotine dependence Osteoarthritis Plan: This is a pleasant 69 years old female who presents with COPD and pneumonia. Continue with antibiotics and steroids. Continue with bronchodilators. Gentle hydration. Follow-up recommendation by pulmonary team. Repeat chest x-ray this morning. Labs and medication were reviewed.. Continue same treatment. Continue with symptomatic treatment. Resume home medication. Monitor lytes and vitals. DVT and GI prophylaxis. Further recommendations of the clinical course of the patient DVT prophylaxis: Subcutaneous heparin GI Prophylaxis: Pepcid PT/OT: Pending Prognosis is guarded
[2019-07-11 09:14] LABS: Basophils % (A) 0 %; Eosinophils % (A) 0 %; HCT 39.9 % (34.0-46.0); HGB 12.8 gm/dL (11.4-16.0); Lymphocytes # (A) 0.9 k/uL (1.0-4.8); Lymphocytes % (A) 5 %; Mean Platelet Volume 8.2; Monocytes # (A) 0.8 k/uL (0-1.0); Monocytes % (A) 5 %; Neutrophils # (A) 14.8 k/uL (1.3-7.7); Neutrophils % (A) 89 %; Platelet Count 490 k/uL (150-450); RBC 3.99 m/uL (3.80-5.40); RDW 13.1 % (11.5-15.5); WBC 16.6 k/uL (3.8-10.6)
--- NOTE | 2019-07-11 10:37 | XR ---
EXAMINATION TYPE: XR chest 1V portable DATE OF EXAM: 07/11/2019 COMPARISON: 07/09/2019 HISTORY: Shortness of breath TECHNIQUE: Frontal and lateral views of the chest are obtained. FINDINGS: Scattered senescent parenchymal changes noted. Hyperinflation compatible with COPD. No evidence for infiltrate. No evidence for atelectasis. Heart size is stable. Mediastinal structures are stable and grossly unremarkable. No evidence for hilar prominence. Degenerative changes dorsal spine. IMPRESSION: 1. No evidence for acute pulmonary disease.
--- NOTE | 2019-07-11 11:38 | P.PN ---
Subjective Progress Note Date: 07/11/19 Principal diagnosis: Acute exacerbation of chronic obstructive pulmonary disease complicated by purulent tracheobronchitis and suspected bronchopneumonia the right lower lobe. The patient is seen today 07/11/2019 in follow-up on the regular medical floor. She is currently sitting up at the bedside. Awake and alert in no acute distress. She states she did have some shortness of breath last night. She is improved this morning. Today's chest x-ray showed no acute pulmonary process there is evidence of COPD with hyperinflation. Blood culture reveals no growth. White count 16.6. Hemoglobin 12.8. Remains on ceftriaxone and azithromycin along with DuoNeb inhalations, Pulmicort and Perforomist inhalations, IV Solu- Medrol. Objective - Vital Signs Vital signs: Vital Signs Temp 97.8 F 07/11/19 05:00 Pulse 96 07/11/19 08:34 Resp 19 07/11/19 05:00 BP 127/66 07/11/19 05:00 Pulse Ox 99 07/11/19 05:00 Intake & Output 07/10/19 07/11/19 07/11/19 18:59 06:59 18:59 Intake Total 575 900 Balance 575 900 Intake: Intake, IV Titration 575 900 Amount Sodium Chloride 0.9% 1, 525 900 000 ml @ 75 mls/hr IV . [id number] MICHOACANO Rx#:[id number] cefTRIAXone 1 gm In 50 Sodium Chloride 0.9% 50 ml @ 100 mls/hr IVPB Q24HR MICHOACANO Rx#:[id number] Other: Voiding Method Toilet Toilet Toilet # Voids 1 - Exam GENERAL EXAM: Alert, active, pleasant 69-year-old female patient, comfortable in no apparent distress. On 3 L nasal cannula. HEAD: Normocephalic. EYES: Normal reaction of pupils, equal size. NOSE: Clear with pink turbinates. THROAT: No erythema or exudates. NECK: No masses, no JVD. CHEST: No chest wall deformity. LUNGS: Equal air entry with few scattered rhonchi. Diminished. CVS: S1 and S2 normal with no audible murmur, regular rhythm. ABDOMEN: No hepatosplenomegaly, normal bowel sounds, no guarding or rigidity. SPINE: No scoliosis or deformity SKIN: No rashes CENTRAL NERVOUS SYSTEM: No focal deficits, tone is normal in all 4 extremities. EXTREMITIES: There is no peripheral edema. No clubbing, no cyanosis. Peripheral pulses are intact. - Labs CBC & Chem 7: 07/11/19 08:44 07/10/19 07:28 Labs: Abnormal Lab Results - Last 24 Hours (Table) 07/11/19 Range/Units 08:44 WBC 16.6 H (3.8-10.6) k/uL Plt Count 490 H (150-450) k/uL Neutrophils # 14.8 H (1.3-7.7) k/uL Lymphocytes # 0.9 L (1.0-4.8) k/uL Microbiology - Last 24 Hours (Table) 07/09/19 07:30 Blood Culture - Preliminary Blood No Growth after 48 hours Assessment and Plan Assessment: #1 Acute exacerbation of chronic obstructive pulmonary disease, complicated by purulent tracheobronchitis and possible bronchopneumonia of the right lower lobe. Repeat chest x-ray shows no acute pulmonary process. #2 Chronic and ongoing tobacco dependence. #3 History of severe stage III chronic obstructive pulmonary disease with FEV1 value of 47% of predicted. Plan: The patient was seen and evaluated by Dr. Rooney. She is cleared for discharge from the pulmonary standpoint. She'll need to be evaluated for possible home oxygen. Complete a course of antibiotics. Complete a prednisone burst and taper cardiac 40 mg daily for 4 days. She should follow-up in our office in 1-2 weeks' time. She is encouraged to call sooner with any recurrence of symptoms or other questions or concerns. I, the cosigning physician, performed a history & physical examination of the patient. Lungs sounds with few scattered rhonchi, diminished. Maintaining good O2 saturations in the 90s on 3 L/m per nasal cannula. I discussed the assessment and plan of care with my nurse practitioner, Mariama Kerr. I attest to the above note as dictated by her.
[2019-07-12] MEDS: IPRATROPIUM-ALBUTEROL 3 ML NEB INHALATION PRN ×3 (00:47→11:16)
[2019-07-12] MEDS: SODIUM CHLORIDE 0.9% 1,000 ML IV SCH (01:53)
[2019-07-12] MEDS: methylPREDNISolone SOD SUCCI 125 MG/2 ML VIAL IV SCH ×2 (05:00→13:02)
[2019-07-12] MEDS: FORMOTEROL FUMARATE 20 MCG/2 ML NEBU INHALATION SCH (07:03)
[2019-07-12] MEDS: BUDESONIDE 1 MG/2 ML NEBU INHALATION SCH (07:03)
[2019-07-12 07:43] LABS: Basophils % (A) 0 %; Eosinophils % (A) 0 %; HCT 39.8 % (34.0-46.0); HGB 12.7 gm/dL (11.4-16.0); Lymphocytes # (A) 0.8 k/uL (1.0-4.8); Lymphocytes % (A) 7 %; MCH 31.5 pg (25.0-35.0); MCV 98.5 fL (80.0-100.0); Mean Platelet Volume 8.4; Monocytes # (A) 0.8 k/uL (0-1.0); Monocytes % (A) 6 %; Neutrophils % (A) 85 %; Platelet Count 430 k/uL (150-450); RBC 4.04 m/uL (3.80-5.40); WBC 11.8 k/uL (3.8-10.6)
[2019-07-12] MEDS: AZITHROMYCIN 500 MG TAB PO SCH (08:39)
[2019-07-12] MEDS: HEPARIN SODIUM,PORCINE 5,000 UNIT/ML 1 ML VIAL SQ SCH (08:40)
[2019-07-12] MEDS: FAMOTIDINE 20 MG TAB PO SCH (08:40)
[2019-07-12] MEDS: CHOLECALCIFEROL 1,000 UNIT TAB PO SCH (08:40)
[2019-07-12] MEDS ORDERED: PNEUMOCOCCAL VACC-PNEUMOVAX 23 25 MCG/0.5 ML VIAL IM ONE (08:46)
--- NOTE | 2019-07-12 11:28 | P.PN ---
Subjective Progress Note Date: 07/12/19 Principal diagnosis: Acute exacerbation of chronic obstructive pulmonary disease complicated by purulent tracheobronchitis and suspected bronchopneumonia the right lower lobe. The patient is seen today 07/11/2019 in follow-up on the regular medical floor. She is currently sitting up at the bedside. Awake and alert in no acute distress. She states she did have some shortness of breath last night. She is improved this morning. Today's chest x-ray showed no acute pulmonary process there is evidence of COPD with hyperinflation. Blood culture reveals no growth. White count 16.6. Hemoglobin 12.8. Remains on ceftriaxone and azithromycin along with DuoNeb inhalations, Pulmicort and Perforomist inhalations, IV Solu- Medrol. The patient is seen today 07/12/2019 in follow-up on the regular medical floor. She is currently resting comfortably in bed. Awake and alert in no acute distress. Her breathing is nearly back to her baseline. She does qualify for home oxygen with O2 saturation 86%during a 6 minute walk. Recovered on 3 L/m per nasal cannula. Blood culture reveals no growth. White count 11.8. Hemoglobin 12.7. Objective - Vital Signs Vital signs: Vital Signs Temp 97.7 F 07/12/19 04:59 Pulse 96 07/12/19 07:26 Resp 22 07/12/19 04:59 BP 140/67 07/12/19 04:59 Pulse Ox 90 L 07/12/19 11:19 Intake & Output 07/11/19 07/12/19 07/12/19 18:59 06:59 18:59 Intake Total 650 Balance 650 Intake: Intake, IV Titration 650 Amount Sodium Chloride 0.9% 1, 600 000 ml @ 50 mls/hr IV . Q20H MICHOACANO Rx#:[id number] cefTRIAXone 1 gm In 50 Sodium Chloride 0.9% 50 ml @ 100 mls/hr IVPB Q24HR MICHOACANO Rx#:[id number] Other: Voiding Method Toilet Toilet Toilet # Voids 3 - Exam GENERAL EXAM: Alert, active, pleasant 69-year-old female patient, comfortable in no apparent distress. On 3 L nasal cannula. HEAD: Normocephalic. EYES: Normal reaction of pupils, equal size. NOSE: Clear with pink turbinates. THROAT: No erythema or exudates. NECK: No masses, no JVD. CHEST: No chest wall deformity. LUNGS: Equal air entry with few scattered rhonchi. Diminished. CVS: S1 and S2 normal with no audible murmur, regular rhythm. ABDOMEN: No hepatosplenomegaly, normal bowel sounds, no guarding or rigidity. SPINE: No scoliosis or deformity SKIN: No rashes CENTRAL NERVOUS SYSTEM: No focal deficits, tone is normal in all 4 extremities. EXTREMITIES: There is no peripheral edema. No clubbing, no cyanosis. Peripheral pulses are intact. - Labs CBC & Chem 7: 07/12/19 06:35 07/10/19 07:28 Labs: Abnormal Lab Results - Last 24 Hours (Table) 07/12/19 Range/Units 06:35 WBC 11.8 H (3.8-10.6) k/uL Neutrophils # 10.0 H (1.3-7.7) k/uL Lymphocytes # 0.8 L (1.0-4.8) k/uL Microbiology - Last 24 Hours (Table) 07/09/19 07:30 Blood Culture - Preliminary Blood No Growth after 72 hours Assessment and Plan Assessment: #1 Acute exacerbation of chronic obstructive pulmonary disease, complicated by purulent tracheobronchitis and possible bronchopneumonia of the right lower lobe. Repeat chest x-ray shows no acute pulmonary process. #2 Chronic and ongoing tobacco dependence. #3 History of severe stage III chronic obstructive pulmonary disease with FEV1 value of 47% of predicted. Plan: The patient was seen and evaluated by Dr. Rooney. She is cleared for discharge from the pulmonary standpoint. She'll need home oxygen. Complete a course of antibiotics. Complete a prednisone burst and taper starting at 40 mg daily for 4 days. She should follow-up in our office in 1-2 weeks' time. She is enc ouraged to call sooner with any recurrence of symptoms or other questions or concerns. I, the cosigning physician, performed a history & physical examination of the patient. Lungs sounds with few scattered rhonchi, diminished. Maintaining good O2 saturations in the 90s on 3 L/m per nasal cannula. I discussed the assessment and plan of care with my nurse practitioner, Mariama Kerr. I attest to the above note as dictated by her.
[2019-07-12 11:47] VITALS: BP 160/74; PULSE 81; RESP 20; TEMP 97.6
--- NOTE | 2019-07-12 13:39 | P.DS ---
Providers Date of admission: 07/09/19 08:49 Attending physician: Bean Lisa MD Consults: 07/09/19 08:46 Consult Physician Routine Consulting Provider: Virgil Walter Consult Reason/Comments: hypoxic resp failure Do you want consulting provider notified?: Yes Primary care physician: Virgil Walter Hospital Course: diagnoses: Acute COPD exacerbation possible right basal committing acquired pneumonia Nicotine dependence Osteoarthritis Hospital course: This is a pleasant 69 years old female with past medical history of COPD and osteoarthritis, cigarette smoker. she follows with Dr. walter as an outpatient who is also her family doctor. Presents because of dyspnea associated with cough and phlegm,patient has been evaluated by [facility].patient was started on Zithromax and Rocephin, she was given steroids and IV fluids. She showed interval improvement.repeat chest x-ray yesterday on 07/11 showed no evidence of acute pulmonary disease. Symptoms are significantly improved however she needs oxygen to go with it to her home. family service caseworker on the case to provide home oxygen and nebulizer which are delivered at bedside. No other new complaints. Patient was cleared for discharge by pulmonary service Patient will be discharged on short course of antibiotics and Taper steroids. Problems and management plan were discussed with the patient and he verbalized understanding and acceptance Patient was found stable and can be discharged home however he needs follow-up as an outpatient. Patient was instructed to follow up with PCP within one week and patient agrees. Patient agrees with the appointments made for her with Dr. Walter who is her PCP as well and its timing and states she will follow-up. Gen: patient is a AAOx3, no distress CVS: S1-S2, RRR, no murmur Lungs: B/L CTA, no wheezing Abdomen: soft, no distention, no tenderness, positive bowel sounds Extremity: no leg edema or induration Time spent more than 35 minutes Patient Condition at Discharge: Fair Plan - Discharge Summary Discharge Rx Participant: No New Discharge Prescriptions: New Cefuroxime Axetil [Ceftin] 500 mg PO BID 7 Days #14 tab Famotidine [Pepcid] 20 mg PO Q12HR #60 tab predniSONE 10 mg PO DIRECTED #40 tab Ipratropium-Albuterol Nebulize [Duoneb 0.5 mg-3 mg/3 ml Soln] 3 ml INHALATION Q6H PRN #1 ampul.neb PRN Reason: Shortness Of Breath Or Wheezing Formoterol Fumarate [Perforomist] 20 mcg INHALATION RT-BID #1 nebu Continue Umeclidinium Brm/Vilanterol Tr [Anoro Ellipta 62.5-25 Mcg INH] 1 puff INHALATION RT-DAILY Cholecalciferol [Vitamin D3 (25 Mcg = 1000 Iu)] 1,000 unit PO DAILY Albuterol Sulfate [Ventolin HFA] 1 - 2 puff INHALATION RT-Q6H PRN #1 inhaler PRN Reason: Shortness Of Breath Discontinued Ibuprofen [Motrin Ib] 400 mg PO Q6H PRN PRN Reason: Pain Discharge Medication List Cholecalciferol [Vitamin D3 (25 Mcg = 1000 Iu)] 1,000 unit PO DAILY 07/09/19 [History] Umeclidinium Brm/Vilanterol Tr [Anoro Ellipta 62.5-25 Mcg INH] 1 puff INHALATION RT-DAILY 07/09/19 [History] Albuterol Sulfate [Ventolin HFA] 1 - 2 puff INHALATION RT-Q6H PRN #1 inhaler 07/11/19 [Rx] Cefuroxime Axetil [Ceftin] 500 mg PO BID 7 Days #14 tab 07/11/19 [Rx] Famotidine [Pepcid] 20 mg PO Q12HR #60 tab 07/11/19 [Rx] predniSONE 10 mg PO DIRECTED #40 tab 07/11/19 [Rx] Formoterol Fumarate [Perforomist] 20 mcg INHALATION RT-BID #1 nebu 07/12/19 [Rx] Ipratropium-Albuterol Nebulize [Duoneb 0.5 mg-3 mg/3 ml Soln] 3 ml INHALATION Q6H PRN #1 ampul.neb 07/12/19 [Rx] Follow up Appointment(s)/Referral(s): Virgil Walter MD [Primary Care Provider] - 07/17/19 3:45 pm Patient Instructions/Handouts: Pneumonitis (DC), Hypoxia (ED), Acute Respiratory Failure (ED) Activity/Diet/Wound Care/Special Instructions: pt would like pneumonia vaccine at discharge Discharge Disposition: HOME WITH HOME HEALTH SERVICES
== END 2019-07-12 14:20 | disposition home or self-care (01) | DRG 190 ==
LOC: EC 06:36 → 3NMEDONC 08:49
PROVIDERS: ADMIT Internal Medicine; ATTEND Internal Medicine
PROC: 5A09357 Assistance with Respiratory Ventilation, Less than 24 Consecutive Hours, Continuous Positive Airway Pressure (ICD-10-PCS; principal; 2019-07-09)
DX: J44.1 Chronic obstructive pulmonary disease with (acute) exacerbation (principal); J18.9 Pneumonia, unspecified organism; J96.01 Acute respiratory failure with hypoxia; J44.0 Chronic obstructive pulmonary disease with (acute) lower respiratory infection; F17.210 Nicotine dependence, cigarettes, uncomplicated; M19.041 Primary osteoarthritis, right hand; M19.042 Primary osteoarthritis, left hand; Z79.899 Other long term (current) drug therapy; Z90.49 Acquired absence of other specified parts of digestive tract; Z82.49 Family history of ischemic heart disease and other diseases of the circulatory system; Z80.1 Family history of malignant neoplasm of trachea, bronchus and lung
CPT/HCPCS: 36415; 71045; 80048; 80053; 83605; 83735; 83880; 84484; 85025; 85610; 85730; 87040; 87502; 90732; 93005; 94640; 94660; 94760; 96365; 96375; 99285

== ENCOUNTER → 2020-06-02 | Outpatient (CLI) | payer MEDICARE | END | disposition home or self-care (01) | LOC: LABWHC1 07:58 | PROVIDERS: ATTEND Internal Medicine Critical Care Medicine | DX: E03.9 Hypothyroidism, unspecified (principal) | CPT/HCPCS: 36415; 84439; 84443 ==

== ENCOUNTER 2020-11-05 19:51 | Inpatient (IN) | payer MEDICARE ==
[2020-11-05] MEDS ORDERED: methylPREDNISolone SOD SUCCI 125 MG/2 ML VIAL IV STA (19:55)
[2020-11-05] MEDS ORDERED: IPRATROPIUM 0.5 MG/2.5 ML NEBU INHALATION STA (19:55)
[2020-11-05] MEDS ORDERED: SODIUM CHLORIDE 0.9% 500 ML 500 ML IV STA (19:55)
[2020-11-05] MEDS ORDERED: ALBUTEROL NEBULIZED 2.5 MG/3 ML INHALATION STA (19:55)
[2020-11-05] MEDS ORDERED: SODIUM CHLORIDE 0.9% 1,000 ML IV ONE (20:04)
[2020-11-05 20:10] LABS: Basophils # (A) 0.1 k/uL (0-0.2); Basophils % (A) 1 %; Eosinophils # (A) 0.2 k/uL (0-0.7); Eosinophils % (A) 2 %; HCT 41.9 % (34.0-46.0); HGB 13.4 gm/dL (11.4-16.0); Lymphocytes # (A) 4.5 k/uL (1.0-4.8); Lymphocytes % (A) 36 %; MCH 30.6 pg (25.0-35.0); MCHC 31.9 g/dL (31.0-37.0); MCV 96.2 fL (80.0-100.0); Monocytes # (A) 0.8 k/uL (0-1.0); Monocytes % (A) 7 %; Neutrophils # (A) 6.6 k/uL (1.3-7.7); Neutrophils % (A) 53 %; Platelet Count 281 k/uL (150-450); RBC 4.36 m/uL (3.80-5.40); RDW 13.5 % (11.5-15.5); WBC 12.6 k/uL (3.8-10.6)
[2020-11-05 20:15] LABS: VBG PH 7.16 (7.31-7.41)
[2020-11-05 20:21] LABS: INR 0.9 (<1.2); Partial Thromboplastin Time 22.9 sec (22.0-30.0); Prothrombin Time 9.9 sec (9.0-12.0)
[2020-11-05 20:22] LABS: Albumin 4.2 g/dL (3.5-5.0); Calcium 9.6 mg/dL (8.4-10.2); Magnesium 2.6 mg/dL (1.6-2.3); Potassium 5.2 mmol/L (3.5-5.1); Total Bilirubin 0.4 mg/dL (0.2-1.3); Total Protein 6.7 g/dL (6.3-8.2)
--- NOTE | 2020-11-05 20:59 | ED ---
General Adult HPI - General Chief complaint: Altered Mental Status Stated complaint: Unresponsive Time Seen by Provider: 11/05/20 19:54 Source: patient, EMS, RN notes reviewed, old records reviewed Mode of arrival: EMS - History of Present Illness Initial comments: 77-year-old female presenting unresponsive, hypoxic. Patient was found by EMS, in her home. She is on home oxygen. Patient unable to determine due to the history. They had transported as a priority 1. Patient was cyanotic, tachycardic with labored breathing. There was concern for seizure old older was no reported visualized seizure activity. He did have tachycardia with nonsustained runs of ventricular tachycardia on the monitor. There was no preceding symptoms. Patient had stable blood pressure during transport. - Related Data Home Medications Medication Instructions Recorded Confirmed ALPRAZolam [Xanax] 0.5 mg PO DAILY PRN 11/05/20 11/05/20 Acetaminophen Tab [Tylenol Tab] 1,000 mg PO Q6HR PRN 11/05/20 11/05/20 Albuterol Sulfate [Ventolin HFA] 2 puff INHALATION RT-Q6H PRN 11/05/20 11/05/20 Fluticasone/Umeclidin/Vilanter 1 puff INHALATION RT-DAILY 11/05/20 11/05/20 [Trelegy Ellipta 200-62.5-25] Ipratropium-Albuterol Nebulize 3 ml INHALATION RT-Q6H PRN 11/05/20 11/05/20 [Duoneb 0.5 mg-3 mg/3 ml Soln] Allergies Allergy/AdvReac Type Severity Reaction Status Date / Time No Known Allergies Allergy Verified 11/05/20 22:01 Review of Systems ROS Statement: Those systems with pertinent positive or pertinent negative responses have been documented in the HPI. ROS Other: All systems not noted in ROS Statement are negative. Past Medical History Past Medical History: COPD, Osteoarthritis (OA) Additional Past Medical History / Comment(s): Arthritis in bilateral hands History of Any Multi-Drug Resistant Organisms: None Reported Past Surgical History: Cholecystectomy, Tonsillectomy Past Anesthesia/Blood Transfusion Reactions: No Reported Reaction Past Psychological History: No Psychological Hx Reported Smoking Status: Never smoker Past Alcohol Use History: None Reported Past Drug Use History: None Reported - Past Family History Father Family Medical History: Cancer Additional Family Medical History / Comment(s): Father of lung cancer at the age of 52 yrs. He was a ex smoker. Mother Family Medical History: Congestive Heart Failure (CHF) Additional Family Medical History / Comment(s): Mother of CHF at the age of 79yrs. General Exam General appearance: lethargic, in distress Head exam: Present: atraumatic, normocephalic Eye exam: Present: normal appearance, PERRL ENT exam: Present: normal exam Neck exam: Present: normal inspection. Absent: tenderness, meningismus Respiratory exam: Present: respiratory distress, wheezes, accessory muscle use, decreased breath sounds Cardiovascular Exam: Present: normal rhythm, tachycardia GI/Abdominal exam: Present: soft. Absent: distended, tenderness, guarding, rebound Extremities exam: Present: normal inspection, normal capillary refill. Absent: pedal edema, calf tenderness Neurological exam: Present: alert, other (Following commands). Absent: motor sensory deficit Skin exam: Present: warm, dry, intact. Absent: cyanosis, diaphoretic Course Vital Signs 11/05/20 11/05/20 11/05/20 19:53 20:04 20:09 Temperature 98.1 F Pulse Rate 134 H 128 H 126 H Respiratory 24 22 Rate Blood Pressure 174/120 150/87 O2 Sat by Pulse 96 97 Oximetry 11/05/20 20:20 Temperature Pulse Rate 118 H Respiratory Rate Blood Pressure O2 Sat by Pulse Oximetry EKG Findings - EKG Comments: EKG Findings:: EKG: Sinus tachycardia, poor baseline secondary to respiratory distress and artifact. Rate of 137, KS interval 132, QRS duration 122, QTC 555 which is prolonged. Repeat EKG, sinus tachycardia, rate of 106, KS interval 142, QRS duration 116, QTC 478, T-wave inversion in the lateral precordial leads, no ST segment elevation Medical Decision Making - Medical Decision Making 70-year-old female presenting with altered mental status, respiratory distress. Patient has severe muscular distress, minimal air entry bilaterally. She had a what sounds like near cardiac arrest. She was placed on BiPAP with significant improvement on the emergency department. Patient feeling on her percent better. X-ray showed hyperinflation, no acute findings. She has a mild leukocytosis, stable hemoglobin, pH of 7.16 with a CO2 of 67. She has a lactic acid of 7.3. Rotavirus is negative. CT brain negative for hemorrhage or mass effect. Patient's vitals improved significantly she will be monitored on telemetry she did have some runs of nonsustained V. tach by EMS. I did discuss case with Dr. Gomez, who will admit. Pulmonology placed on consult. - Lab Data Result diagrams: 11/05/20 20:01 11/05/20 20:01 Lab Results 11/05/20 11/05/20 11/05/20 Range/Units 20:01 20:01 20:01 WBC 12.6 H (3.8-10.6) k/uL RBC 4.36 (3.80-5.40) m/uL Hgb 13.4 (11.4-16.0) gm/dL Hct 41.9 (34.0-46.0) % MCV 96.2 (80.0-100.0) fL MCH 30.6 (25.0-35.0) pg MCHC 31.9 (31.0-37.0) g/dL RDW 13.5 (11.5-15.5) % Plt Count 281 (150-450) k/uL MPV 9.0 Neutrophils % 53 % Lymphocytes % 36 % Monocytes % 7 % Eosinophils % 2 % Basophils % 1 % Neutrophils # 6.6 (1.3-7.7) k/uL Lymphocytes # 4.5 (1.0-4.8) k/uL Monocytes # 0.8 (0-1.0) k/uL Eosinophils # 0.2 (0-0.7) k/uL Basophils # 0.1 (0-0.2) k/uL PT 9.9 (9.0-12.0) sec INR 0.9 (<1.2) APTT 22.9 (22.0-30.0) sec VBG pH (7.31-7.41) VBG pCO2 (37-51) mmHg VBG HCO3 (24-28) mmol/L Sodium (137-145) mmol/L Potassium (3.5-5.1) mmol/L Chloride (98-107) mmol/L Carbon Dioxide (22-30) mmol/L Anion Gap mmol/L BUN (7-17) mg/dL Creatinine (0.52-1.04) mg/dL Est GFR (CKD-EPI)AfAm (>60 ml/min/1.73 sqM) Est GFR (CKD-EPI)NonAf (>60 ml/min/1.73 sqM) Glucose (74-99) mg/dL Plasma Lactic Acid Nando (0.7-2.0) mmol/L Calcium (8.4-10.2) mg/dL Magnesium (1.6-2.3) mg/dL Total Bilirubin (0.2-1.3) mg/dL AST (14-36) U/L ALT (4-34) U/L Alkaline Phosphatase (38-126) U/L Troponin I (0.000-0.034) ng/mL NT-Pro-B Natriuret Pep pg/mL Total Protein (6.3-8.2) g/dL Albumin (3.5-5.0) g/dL Coronavirus (PCR) Not Detected (Not Detectd) 11/05/20 11/05/20 11/05/20 Range/Units 20:01 20:01 20:01 WBC (3.8-10.6) k/uL RBC (3.80-5.40) m/uL Hgb (11.4-16.0) gm/dL Hct (34.0-46.0) % MCV (80.0-100.0) fL MCH (25.0-35.0) pg MCHC (31.0-37.0) g/dL RDW (11.5-15.5) % Plt Count (150-450) k/uL MPV Neutrophils % % Lymphocytes % % Monocytes % % Eosinophils % % Basophils % % Neutrophils # (1.3-7.7) k/uL Lymphocytes # (1.0-4.8) k/uL Monocytes # (0-1.0) k/uL Eosinophils # (0-0.7) k/uL Basophils # (0-0.2) k/uL PT (9.0-12.0) sec INR (<1.2) APTT (22.0-30.0) sec VBG pH (7.31-7.41) VBG pCO2 (37-51) mmHg VBG HCO3 (24-28) mmol/L Sodium 138 (137-145) mmol/L Potassium 5.2 H (3.5-5.1) mmol/L Chloride 104 (98-107) mmol/L Carbon Dioxide 21 L (22-30) mmol/L Anion Gap 13 mmol/L BUN 20 H (7-17) mg/dL Creatinine 0.98 (0.52-1.04) mg/dL Est GFR (CKD-EPI)AfAm 68 (>60 ml/min/1.73 sqM) Est GFR (CKD-EPI)NonAf 59 (>60 ml/min/1.73 sqM) Glucose 181 H (74-99) mg/dL Plasma Lactic Acid Nando 3.7 H* (0.7-2.0) mmol/L Calcium 9.6 (8.4-10.2) mg/dL Magnesium 2.6 H (1.6-2.3) mg/dL Total Bilirubin 0.4 (0.2-1.3) mg/dL AST 65 H (14-36) U/L ALT 35 H (4-34) U/L Alkaline Phosphatase 67 (38-126) U/L Troponin I <0.012 (0.000-0.034) ng/mL NT-Pro-B Natriuret Pep pg/mL Total Protein 6.7 (6.3-8.2) g/dL Albumin 4.2 (3.5-5.0) g/dL Coronavirus (PCR) (Not Detectd) 11/05/20 11/05/20 Range/Units 20:01 20:02 WBC (3.8-10.6) k/uL RBC (3.80-5.40) m/uL Hgb (11.4-16.0) gm/dL Hct (34.0-46.0) % MCV (80.0-100.0) fL MCH (25.0-35.0) pg MCHC (31.0-37.0) g/dL RDW (11.5-15.5) % Plt Count (150-450) k/uL MPV Neutrophils % % Lymphocytes % % Monocytes % % Eosinophils % % Basophils % % Neutrophils # (1.3-7.7) k/uL Lymphocytes # (1.0-4.8) k/uL Monocytes # (0-1.0) k/uL Eosinophils # (0-0.7) k/uL Basophils # (0-0.2) k/uL PT (9.0-12.0) sec INR (<1.2) APTT (22.0-30.0) sec VBG pH 7.16 L* (7.31-7.41) VBG pCO2 67 H (37-51) mmHg VBG HCO3 23 L (24-28) mmol/L Sodium (137-145) mmol/L Potassium (3.5-5.1) mmol/L Chloride (98-107) mmol/L Carbon Dioxide (22-30) mmol/L Anion Gap mmol/L BUN (7-17) mg/dL Creatinine (0.52-1.04) mg/dL Est GFR (CKD-EPI)AfAm (>60 ml/min/1.73 sqM) Est GFR (CKD-EPI)NonAf (>60 ml/min/1.73 sqM) Glucose (74-99) mg/dL Plasma Lactic Acid Nando (0.7-2.0) mmol/L Calcium (8.4-10.2) mg/dL Magnesium (1.6-2.3) mg/dL Total Bilirubin (0.2-1.3) mg/dL AST (14-36) U/L ALT (4-34) U/L Alkaline Phosphatase (38-126) U/L Troponin I (0.000-0.034) ng/mL NT-Pro-B Natriuret Pep 120 pg/mL Total Protein (6.3-8.2) g/dL Albumin (3.5-5.0) g/dL Coronavirus (PCR) (Not Detectd) Critical Care Time Critical Care Time: Yes Total Critical Care Time: 35 Disposition Clinical Impression: Hypoxia, COPD exacerbation Disposition: ADMITTED IP TO THIS [facility] Condition: Stable Is patient prescribed a controlled substance at d/c from ED?: No Referrals: None,Stated [Primary Care Provider] - 1-2 days Decision to Admit Reason: Admit from EC Decision Date: 11/05/20 Decision Time: 22:15
--- NOTE | 2020-11-05 21:06 | CT ---
EXAM: CT brain wo con CLINICAL HISTORY: Altered mental status. COMPARISON: None TECHNIQUE: Contiguous axial noncontrast images of the brain were obtained. Coronal and sagittal refor mats were generated and reviewed. Automated dose control was used for this exam. FINDINGS: There is no evidence for intracranial hemorrhage, mass effect or midline shift. The white matter is g rossly preserved. Ventricular size and configuration is within normal limits for degree of parenchymal volume. The paranasal sinuses demonstrate mild disease. The mastoid air cells are clear. No evidence for calvarial fracture. IMPRESSION: No acute intracranial abnormality.
--- NOTE | 2020-11-05 21:25 | XR ---
EXAMINATION TYPE: XR chest 1V portable DATE OF EXAM: 11/05/2020 COMPARISON: 07/17/2019. HISTORY: Respiratory distress. TECHNIQUE: Single frontal view of the chest is obtained. FINDINGS: The lungs remain hypoaerated, suggestive of COPD. There is mild bibasilar hazy opacities. No pleural effusion, or pneumothorax seen. The cardiac silhouette size is within normal limits. Th e osseous structures are intact. IMPRESSION: COPD with acute exacerbation not excluded.
[2020-11-05] MEDS ORDERED: IPRATROPIUM-ALBUTEROL 3 ML NEB INHALATION PRN (22:11)
[2020-11-06] MEDS: methylPREDNISolone SOD SUCCI 125 MG/2 ML VIAL IV SCH ×5 (00:09→23:54)
[2020-11-06] MEDS ORDERED: CALCIUM GLUCONATE 1 GM in SODIUM CHLORIDE 0.9% 100 ML IVPB ONE (01:45)
[2020-11-06] MEDS ORDERED: SODIUM POLYSTYRENE SULFONATE 15 GM/60 ML BOTTLE PO ONE (01:46)
--- NOTE | 2020-11-06 01:49 | P.HPIM ---
History of Present Illness H&P Date: 11/06/20 Patient is a 70-year-old female with a PMH of COPD on periodic home O2 who was brought into the emergency room via EMS for an unresponsive episode. The patient reports that she was in her usual state of health until about 5 PM when she felt her COPD acting up. She subsequently started using her oxygen and around 7 PM had gone into her kitchen and was standing at the counter when she told her to give her the inhaler from the cupboard when she suddenly lost consciousness. She notes that the next thing she knew, she woke up in the emergency room people surrounding her. She does not recall any receding symptoms. Denied experiencing chest discomfort, palpitations, nausea, or diaphoresis prior to her loss of consciousness. He also denied experiencing urinary or bowel incontinence or tongue biting. History supplemented by the patient's (Zac Fleming [phone]) notes that when she asked him for help, he found her sitting on the floor in their kitchen. He asked her why she is on the floor to which she responded that she is resting. She then proceeded to lay down and closed her eyes and became unresponsive. He attempted to wake her up without avail. He then noticed her color change to herrera which prompted him to activate EMS. He notes that she did not regain consciousness until after arrival to the ED. The patient never stopped breathing. Denied noticing shaking movements, or incontinence. As per the ED physician, the patient was cyanotic, tachycardic, and tachypneic upon presentation with concerns for seizure disorder despite no reported visualized seizure activity. The patient reported no history of seizure disorder and reported no prior history of loss of consciousness. She also denied any cardiac history. Reports an excellent exercise tolerance. At time of interview, she reported feeling completely back to her baseline and is eager to go home. EKG in the emergency room initially revealed widened QRS which subsequently narrowed along with multiple T-wave abnormalities. Brain CT was unremarkable. CXR was consistent with COPD exacerbation. After evaluation was remarkable for pH of 7.16, VBG pCO2 of 67, potassium 5.2, lactic acid 3.7, Troponin < 0.012, and Coronavirus PCR negative. Review of Systems Pertinent positives and negatives as discussed in HPI, a complete review of systems was performed and all other systems are negative. Past Medical History Past Medical History: COPD, Osteoarthritis (OA) Additional Past Medical History / Comment(s): Arthritis in bilateral hands History of Any Multi-Drug Resistant Organisms: None Reported Past Surgical History: Cholecystectomy, Tonsillectomy Past Anesthesia/Blood Transfusion Reactions: No Reported Reaction Past Psychological History: No Psychological Hx Reported Additional Psychological History / Comment(s): Pt resides with her spouse. She uses no assistive device. She drives. Smoking Status: Former smoker Past Alcohol Use History: None Reported Additional Past Alcohol Use History / Comment(s): Pt started smoking about 1969 and was a half a ppd smoker but stopped 2018 Past Drug Use History: None Reported - Past Family History Father Family Medical History: Cancer Additional Family Medical History / Comment(s): Father of lung cancer at the age of 52 yrs. He was a ex smoker. Mother Family Medical History: Congestive Heart Failure (CHF) Additional Family Medical History / Comment(s): Mother of CHF at the age of 79yrs. Medications and Allergies Home Medications Medication Instructions Recorded Confirmed Type ALPRAZolam [Xanax] 0.5 mg PO DAILY PRN 11/05/20 11/05/20 History Acetaminophen Tab [Tylenol Tab] 1,000 mg PO Q6HR PRN 11/05/20 11/05/20 History Albuterol Sulfate [Ventolin HFA] 2 puff INHALATION RT-Q6H PRN 11/05/20 11/05/20 History Fluticasone/Umeclidin/Vilanter 1 puff INHALATION RT-DAILY 11/05/20 11/05/20 History [Trelegy Ellipta 200-62.5-25] Ipratropium-Albuterol Nebulize 3 ml INHALATION RT-Q6H PRN 11/05/20 11/05/20 History [Duoneb 0.5 mg-3 mg/3 ml Soln] Allergies Allergy/AdvReac Type Severity Reaction Status Date / Time No Known Allergies Allergy Verified 11/05/20 22:01 Physical Exam Vitals: Vital Signs Temp Pulse Pulse Resp BP BP Pulse Ox 11/06/20 00:00 97.8 F 99 18 105/61 100 11/05/20 23:03 96 17 108/67 97 11/05/20 20:20 118 H 11/05/20 20:09 126 H 22 150/87 97 11/05/20 20:04 128 H 11/05/20 19:53 98.1 F 134 H 24 174/120 96 Intake and Output 11/05/20 11/05/20 11/06/20 14:59 22:59 06:59 Other: # Voids 1 Weight 77.111 kg General: non toxic, no distress, appears at stated age, normal weight Derm: no unusual rashes/lesions no unusual ecchymoses, warm, dry Head: atraumatic, normocephalic, symmetric Eyes: EOMI, no lid lag, anicteric sclera, pupils equal round reactive to light ENT: Nose and ears atraumatic, no thrush, no pharyngeal erythema Neck: No thyromegaly, no cervical lymphadenopathy, trachea midline, supple Mouth: no lip lesion, mucus membranes moist Cardiovascular: S1S2 reg, no murmur, positive posterior tibial pulse bilateral, no edema, capillary refill less than 2 seconds Lungs: CTA bilateral, no rhonchi, no rales , no accessory muscle use Abdominal: soft, nontender to palpation, no guarding, no appreciable organomegaly, normal bowel sounds Ext: no gross muscle atrophy, muscle strength 5 out of 5 in all 4 extremities grossly, no contractures, Neuro: CN II-XI grossly intact, light touch intact all 4 extremities, finger to nose within normal limits, Psych: Alert, oriented, appropriate affect Results CBC & Chem 7: 11/05/20 20:01 11/05/20 20:01 Labs: Abnormal Lab Results - Last 24 Hours (Table) 11/05/20 11/05/20 11/05/20 Range/Units 20:01 20:01 20:01 WBC 12.6 H (3.8-10.6) k/uL VBG pH (7.31-7.41) VBG pCO2 (37-51) mmHg VBG HCO3 (24-28) mmol/L Potassium 5.2 H (3.5-5.1) mmol/L Carbon Dioxide 21 L (22-30) mmol/L BUN 20 H (7-17) mg/dL Glucose 181 H (74-99) mg/dL Plasma Lactic Acid Nando 3.7 H* (0.7-2.0) mmol/L Magnesium 2.6 H (1.6-2.3) mg/dL AST 65 H (14-36) U/L ALT 35 H (4-34) U/L 11/05/20 Range/Units 20:02 WBC (3.8-10.6) k/uL VBG pH 7.16 L* (7.31-7.41) VBG pCO2 67 H (37-51) mmHg VBG HCO3 23 L (24-28) mmol/L Potassium (3.5-5.1) mmol/L Carbon Dioxide (22-30) mmol/L BUN (7-17) mg/dL Glucose (74-99) mg/dL Plasma Lactic Acid Nando (0.7-2.0) mmol/L Magnesium (1.6-2.3) mg/dL AST (14-36) U/L ALT (4-34) U/L Thrombosis Risk Factor Assmnt - Choose All That Apply Each Factor Represents 1 point: Abnormal pulmonary function (COPD) Other Risk Factors: No Other congenital or acquired thrombophilia - If yes, enter type in comment: No Thrombosis Risk Factor Assessment Total Risk Factor Score: 1 Thrombosis Risk Factor Assessment Level: Low Risk Assessment and Plan Plan: Loss of consciousness, unclear etiology, possibly cardiac vs COPD exacerbation w/ hypoxia/hypercapnia vs seizure -Cardiac monitoring -Fall and seizure precautions -Echocardiogram -C/w Solumedrol -Duonebs -Supplemental oxygen -Cardiology consult -Check prolactin levels Hyperkalemia -S/p Calcium gluconate and kayexalate -Monitor for now Abnormal LFTs and Leukocytosis -Likely due to acute stressor DVT prophylaxis -Heparin subq The patient is admitted with an anticipated greater than 2 midnight stay for evaluation of loss of consciousness CODE STATUS: Full Code Discussed with: Patient, Anticipated discharge date: 2-[address]: Home A total of 35 minutes was spent on the care of this complex patient more than 50% of the time was spent in counseling and care coordination.
[2020-11-06 06:07] LABS: Glucose,Whole Blood 133 mg/dL (75-99)
[2020-11-06 06:15] LABS: HCT 40.1 % (34.0-46.0); HGB 13.4 gm/dL (11.4-16.0); MCH 31.8 pg (25.0-35.0); MCHC 33.5 g/dL (31.0-37.0); MCV 95.2 fL (80.0-100.0); Mean Platelet Volume 8.8; Platelet Count 222 k/uL (150-450); RBC 4.21 m/uL (3.80-5.40); WBC 10.9 k/uL (3.8-10.6)
[2020-11-06 06:25] LABS: Albumin 3.6 g/dL (3.5-5.0); Calcium 9.3 mg/dL (8.4-10.2); Potassium 4.6 mmol/L (3.5-5.1); Total Bilirubin 0.3 mg/dL (0.2-1.3); Total Protein 6.3 g/dL (6.3-8.2)
[2020-11-06] MEDS ORDERED: SYMBICORT 80-4.5 MCG INHALER INHALATION SCH (08:00)
[2020-11-06] MEDS: IPRATROPIUM-ALBUTEROL 3 ML NEB INHALATION SCH ×4 (08:15→20:26)
[2020-11-06] MEDS: HEPARIN SODIUM,PORCINE/PF 5,000 UNIT/0.5 ML SYRINGE SQ SCH ×3 (09:15→23:55)
--- NOTE | 2020-11-06 11:38 | P.CRDCN ---
History of Present Illness History of present illness: HISTORY OF PRESENTING ILLNESS This is a pleasant 70-year-old female past medical history significant for COPD,. 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 We have been asked to see in consultation for syncope. Patient is seen and examined at bedside. Patient presents emergency department due to an unresponsive episode. She states she was short of breath, Using her oxygen around 7 PM suddenly lost consciousness. She does not remember this. The next thing she woke up in the emergency room people surrounding her. Previous notes the patient's , he found her sitting on the floor in the kitchen. He asked her why she was seen in the floor and she responded she was resting Thing that she did mostly down and close her eyes dementia became unresponsive. He could not wake her. He said her color changed to gupta and called ambulance. Patient apparently did not gain consciousness until she arrived back to the ED. The patient never stopped breathing. Patient and denied experiencing or complaints of chest discomfort, palpitations, nausea, or diaphoresis, shaking movements, loss of bowel or bladder. The ER, the patient was cyanotic, tachycardic, and tachypneic upon presentation with concerns for seizure disorder despite no reported visualized seizure activity. Patient denies history of AR, stroke, seizures, hypertension, heart disease, cardiac history. Patient denies alcohol, illicit drug use. On exam, patient alert and oriented x 4. Denies chest pain, palpitations, shortness of breath. DIAGNOSTICS EKG reveals sinus tachycardia, wide QRS, Twave inversions in inferior lateral leads, poor R wave progression. T wave abnormalities are new from prior EKGs. Brain CT negative for any acute intracranial abnormalities. Chest xray COPD, mild bibasilar hazy opacities. Laboratory reviewed, VBG consistent with respiratory acidosis, Troponin negative x 1, BNP 120, Lactic acid 3.7 (1.2), sodium 138, potassium 4.6, serum creatinine 0.79, BUN 18, Covid-19 PCR negative REVIEW OF SYSTEMS At the time of my exam: CONSTITUTIONAL: Denies fever or chills. CARDIOVASCULAR: Denies chest pain, shortness of breath, orthopnea, PND or palpitations. RESPIRATORY: Denies cough. GASTROINTESTINAL: Denies abdominal pain, diarrhea, constipation, nausea or vomiting. MUSCULOSKELETAL: Denies myalgias. NEUROLOGIC: Denies numbness, tingling, headacbe or weakness. ENDOCRINE: Denies fatigue, weight change, polydipsia or polyurina. GENITOURINARY: Denies burning, hematuria or urgency with micturation. HEMATOLOGIC: Denies history of anemia or bleeding. PHYSICAL EXAMINATION CONSTITUTIONAL: No apparent distress. HEENT: Head is normocephalic. Pupils are equal, round. Sclerae anicteric. Mucous membranes of the mouth are moist. No JVD. No carotid bruit. CHEST EXAMINATION: Lungs are clear to auscultation. No chest wall tenderness is noted on palpation or with deep breathing. HEART EXAMINATION: Regular rate and rhythm. S1, S2 heard. No murmurs, gallops or rub. ABDOMEN: Soft, nontender. Positive bowel sounds. EXTREMITIES: 2+ peripheral pulses, no lower extremity edema and no calf tenderness. SKIN: intact NEUROLOGIC EXAMINATION: Patient is awake, alert and oriented x3. ASSESSMENT Syncope, unclear etiology Hyperkalemia - resolved COPD exacerbation PLAN -2D echo ordered -Orthostatic vital signs -We would like to do a Lexiscan stress test, however, patient has eaten breakfast this morning and Pepsi -Recommend following up with Dr. Cerda in the office. If stress test still needed that will be discussed in the outpatient appointment -If no acute abnormalities on echocardiogram, patient can be discharged home and follow up with Dr. Cerda Nurse Practitioner note has been reviewed, I agree with a documented findings and plan of care. Patient was seen and examined. Past Medical History Past Medical History: COPD, Osteoarthritis (OA) Additional Past Medical History / Comment(s): Arthritis in bilateral hands History of Any Multi-Drug Resistant Organisms: None Reported Past Surgical History: Cholecystectomy, Tonsillectomy Past Anesthesia/Blood Transfusion Reactions: No Reported Reaction Past Psychological History: No Psychological Hx Reported Additional Psychological History / Comment(s): Pt resides with her spouse. She uses no assistive device. She drives. Smoking Status: Former smoker Past Alcohol Use History: None Reported Additional Past Alcohol Use History / Comment(s): Pt started smoking about 1969 and was a half a ppd smoker but stopped 2018 Past Drug Use History: None Reported - Past Family History Father Family Medical History: Cancer Additional Family Medical History / Comment(s): Father of lung cancer at the age of 52 yrs. He was a ex smoker. Mother Family Medical History: Congestive Heart Failure (CHF) Additional Family Medical History / Comment(s): Mother of CHF at the age of 79yrs. Medications and Allergies Home Medications Medication Instructions Recorded Confirmed Type ALPRAZolam [Xanax] 0.5 mg PO DAILY PRN 11/05/20 11/05/20 History Acetaminophen Tab [Tylenol] 1,000 mg PO Q6HR PRN 11/05/20 11/05/20 History Albuterol Sulfate [Ventolin HFA] 2 puff INHALATION RT-Q6H PRN 11/05/20 11/05/20 History Fluticasone/Umeclidin/Vilanter 1 puff INHALATION RT-DAILY 11/05/20 11/05/20 History [Trelegy Ellipta 200-62.5-25] Azithromycin [Zithromax] 500 mg PO DAILY 4 Days #4 tab 11/06/20 Rx Ipratropium-Albuterol Nebulize 3 ml INHALATION RT-Q4H PRN ml 11/06/20 Rx [Duoneb 0.5 mg-3 mg/3 ml Soln] Ipratropium-Albuterol Nebulize 3 ml INHALATION RT-QID ml 11/06/20 Rx [Duoneb 0.5 mg-3 mg/3 ml Soln] predniSONE [Deltasone] 40 mg PO DAILY 4 Days #8 tab 11/06/20 Rx Allergies Allergy/AdvReac Type Severity Reaction Status Date / Time No Known Allergies Allergy Verified 11/05/20 22:01 Physical Exam Vitals: Vital Signs Temp Pulse Pulse Resp BP BP Pulse Ox 11/06/20 04:00 95 20 118/70 97 11/06/20 01:48 99 18 11/06/20 00:00 97.8 F 99 18 105/61 100 11/05/20 23:03 96 17 108/67 97 11/05/20 20:20 118 H 11/05/20 20:09 126 H 22 150/87 97 11/05/20 20:04 128 H 11/05/20 19:53 98.1 F 134 H 24 174/120 96 Intake and Output 11/05/20 11/05/20 11/06/20 14:59 22:59 06:59 Intake Total 400 Balance 400 Intake: Intake, IV Titration 100 Amount Calcium Gluconate 1 gm In 100 Sodium Chloride 0.9% 100 ml @ 100 mls/hr IVPB ONCE ONE Rx#:[id number] Oral 300 Other: # Voids 2 Weight 77.111 kg 64 kg Results 11/06/20 05:14 11/06/20 05:14 Cardiac Enzymes 11/05/20 11/05/20 Range/Units 20:01 20:01 AST 65 H (14-36) U/L Troponin I <0.012 (0.000-0.034) ng/mL Coagulation 11/05/20 Range/Units 20:01 PT 9.9 (9.0-12.0) sec APTT 22.9 (22.0-30.0) sec CBC 11/05/20 11/06/20 Range/Units 20:01 05:14 WBC 12.6 H 10.9 H (3.8-10.6) k/uL RBC 4.36 4.21 (3.80-5.40) m/uL Hgb 13.4 13.4 (11.4-16.0) gm/dL Hct 41.9 40.1 (34.0-46.0) % Plt Count 281 222 (150-450) k/uL Comprehensive Metabolic Panel 11/05/20 Range/Units 20:01 Sodium 138 (137-145) mmol/L Potassium 5.2 H (3.5-5.1) mmol/L Chloride 104 (98-107) mmol/L Carbon Dioxide 21 L (22-30) mmol/L BUN 20 H (7-17) mg/dL Creatinine 0.98 (0.52-1.04) mg/dL Glucose 181 H (74-99) mg/dL Calcium 9.6 (8.4-10.2) mg/dL AST 65 H (14-36) U/L ALT 35 H (4-34) U/L Alkaline Phosphatase 67 (38-126) U/L Total Protein 6.7 (6.3-8.2) g/dL Albumin 4.2 (3.5-5.0) g/dL Current Medications Generic Name Dose Route Start Last Admin Trade Name Freq PRN Reason Stop Dose Admin Albuterol/Ipratropium 3 ml 11/05/20 22:11 Ipratropium-Albuterol 3 Ml Neb INHALATION RT-Q4H PRN Shortness Of Breath Or Wheezing Albuterol/Ipratropium 3 ml 11/06/20 08:00 Ipratropium-Albuterol 3 Ml Neb INHALATION RT-QID [facility] Budesonide/Formoterol Fumarate 2 puff 11/06/20 08:00 Symbicort 80-4.5 Mcg Inhaler INHALATION RT-BID [facility] Heparin Sodium (Porcine) 5,000 unit 11/06/20 08:00 Heparin Sodium,Porcine/Pf 5,000 Unit/0.5 Ml Syringe SQ Q8HR [facility] Methylprednisolone Sodium Succinate 60 mg 11/06/20 00:00 11/06/20 06:16 Methylprednisolone Sod Succi 125 Mg/2 Ml Vial IV 60 mg Q6HR MICHOACANO Administration Intake and Output 11/05/20 11/05/20 11/06/20 14:59 22:59 06:59 Intake Total 400 Balance 400 Intake: Intake, IV Titration 100 Amount Calcium Gluconate 1 gm In 100 Sodium Chloride 0.9% 100 ml @ 100 mls/hr IVPB ONCE ONE Rx#:[id number] Oral 300 Other: # Voids 2 Weight 77.111 kg 64 kg Patient Weight 11/06/20 06:59 Weight 64 kg 11/06/20 05:14 11/05/20 20:01
[2020-11-06 11:42] LABS: Glucose,Whole Blood 124 mg/dL (75-99)
--- NOTE | 2020-11-06 15:10 | P.PN ---
Progress Note - Text Progress Note Date: 11/06/20 Pt seen and examined at bedside today. I agree with plan of care as documented by my colleague earlier this morning. Per cardiology, echocardiogram showed some abnormal findings warranting left heart cath which will be done over the weekend. Patient otherwise feels back to baseline status, does continue to have some end expiratory wheezing, but is exchanging air well.
[2020-11-06 15:11] LABS: Prolactin 2.6 ng/mL (2.8-29.2)
[2020-11-06 16:47] LABS: Glucose,Whole Blood 121 mg/dL (75-99)
--- NOTE | 2020-11-06 16:52 | P.CNPUL ---
History of Present Illness Consult date: 11/06/20 Requesting physician: Jennifer Gomez Reason for consult: dyspnea, cough, chest pain, COPD, hypoxemia Chief complaint: Shortness of breath. History of present illness: 70-year-old female, who sees Dr. Walter as her primary, presents to the emergency department on November 05, at 1950, with mental status changes, and apparently unresponsiveness. Apparently the patient was not feeling quite right at home. She went to get her oxygen. She became very confused and disoriented. Family called EMS, who transported her to the hospital. The patient was apparently cyanotic from the waist up. She had labored breathing, and was tachycardic. There was a concern for possible seizure. There were some nonsustained runs of ventricular tachycardia as well. Currently, the patient seemed be doing very well. She does tell us that the cardiologists feel like her issues were more cardiac and not so much pulmonary. She does have quite severe/stage III COPD, with an FEV1 that is 47% of predicted. She takes updrafts with both albuterol sulfate and ipratropium bromide, and also uses a combination inhaler that contains a long-acting beta agonist, inhaled corticosteroid, and long-acting muscarinic antagonist. She does have oxygen at home but she uses as needed. She also nebulizer machine at home as well. Finally she does carry a rescue inhaler, i.e. Ventolin HFA. Her medical history is primarily positive for COPD, and osteoarthritis. She is apparently going for cardiac catheterization tomorrow according to her doctor and to her. White count 10.9, hemoglobin and hematocrit and platelet count all normal. Electrolyte profile looks normal as well. Troponin appears to be normal. Brain CT was negative as was a chest x-ray other than for changes of COPD. Review of Systems REVIEW OF SYSTEMS: CONSTITUTIONAL: [Negative.] NEUROLOGIC: [ Negative.] HEENT: [ Negative.] CARDIAC: Chest tightness. PULMONARY: Shortness of breath. GI: [Negative.] : [Negative.] RHEUMATOLOGIC: [ Negative.] IMMUNOLOGIC: [ Negative.] ENDOCRINE: [Negative. ] DERMATOLOGIC: [Negative.] Past Medical History Past Medical History: COPD, Osteoarthritis (OA) Additional Past Medical History / Comment(s): Arthritis in bilateral hands History of Any Multi-Drug Resistant Organisms: None Reported Past Surgical History: Cholecystectomy, Tonsillectomy Past Anesthesia/Blood Transfusion Reactions: No Reported Reaction Past Psychological History: No Psychological Hx Reported Additional Psychological History / Comment(s): Pt resides with her spouse. She uses no assistive device. She drives. Smoking Status: Former smoker Past Alcohol Use History: None Reported Additional Past Alcohol Use History / Comment(s): Pt started smoking about 1969 and was a half a ppd smoker but stopped 2018 Past Drug Use History: None Reported - Past Family History Father Family Medical History: Cancer Additional Family Medical History / Comment(s): Father of lung cancer at the age of 52 yrs. He was a ex smoker. Mother Family Medical History: Congestive Heart Failure (CHF) Additional Family Medical History / Comment(s): Mother of CHF at the age of 79yrs. Medications and Allergies Home Medications Medication Instructions Recorded Confirmed Type ALPRAZolam [Xanax] 0.5 mg PO DAILY PRN 11/05/20 11/05/20 History Acetaminophen Tab [Tylenol] 1,000 mg PO Q6HR PRN 11/05/20 11/05/20 History Albuterol Sulfate [Ventolin HFA] 2 puff INHALATION RT-Q6H PRN 11/05/20 11/05/20 History Fluticasone/Umeclidin/Vilanter 1 puff INHALATION RT-DAILY 11/05/20 11/05/20 History [Trelegy Ellipta 200-62.5-25] Azithromycin [Zithromax] 500 mg PO DAILY 4 Days #4 tab 11/06/20 Rx Ipratropium-Albuterol Nebulize 3 ml INHALATION RT-Q4H PRN ml 11/06/20 Rx [Duoneb 0.5 mg-3 mg/3 ml Soln] Ipratropium-Albuterol Nebulize 3 ml INHALATION RT-QID ml 11/06/20 Rx [Duoneb 0.5 mg-3 mg/3 ml Soln] predniSONE [Deltasone] 40 mg PO DAILY 4 Days #8 tab 11/06/20 Rx Allergies Allergy/AdvReac Type Severity Reaction Status Date / Time No Known Allergies Allergy Verified 11/05/20 22:01 Physical Exam Osteopathic Statement: *. No significant issues noted on an osteopathic structural exam other than those noted in the History and Physical/Consult. Vitals: Vital Signs Temp Pulse Pulse Pulse Pulse Resp BP 11/06/20 15:59 98 F 88 16 11/06/20 15:39 96 11/06/20 15:23 92 11/06/20 12:14 97.5 F L 92 103 H 18 11/06/20 11:57 102 H 11/06/20 11:44 100 11/06/20 08:50 97.7 F 99 18 11/06/20 08:25 108 H 11/06/20 08:15 106 H 11/06/20 04:00 95 20 11/06/20 01:48 99 18 11/06/20 00:00 97.8 F 99 18 11/05/20 23:03 96 17 108/67 11/05/20 20:20 118 H 11/05/20 20:09 126 H 22 150/87 11/05/20 20:04 128 H 11/05/20 19:53 98.1 F 134 H 24 174/120 BP BP BP Pulse Ox 11/06/20 15:59 95/55 94 L 11/06/20 15:39 11/06/20 15:23 11/06/20 12:14 119/77 107/72 97 11/06/20 11:57 11/06/20 11:44 11/06/20 08:50 112/66 96 11/06/20 08:25 11/06/20 08:15 11/06/20 04:00 118/70 97 11/06/20 01:48 11/06/20 00:00 105/61 100 11/05/20 23:03 97 11/05/20 20:20 11/05/20 20:09 97 11/05/20 20:04 11/05/20 19:53 96 Intake and Output 11/06/20 11/06/20 11/06/20 06:59 14:59 22:59 Intake Total 400 480 Balance 400 480 Intake: Intake, IV Titration 100 Amount Calcium Gluconate 1 gm In 100 Sodium Chloride 0.9% 100 ml @ 100 mls/hr IVPB ONCE ONE Rx#:[id number] Oral 300 480 Other: # Voids 2 # Bowel Movements 0 Weight 64 kg No acute distress, oriented 3. Nasal O2 set at 3 L/m. No conversational dyspnea or use of accessory muscles. HEENT examination is grossly unremarkable. Neck supple. Full range of motion. No adenopathy thyromegaly or neck vein distention. Cardiovascular examination reveals regular rhythm rate. S1-S2 normal. No S3 or S4. No discernible murmur noted. Heart rate 88 bpm. Lungs reveal mostly clear but severely diminished breath sounds. No distinct wheezes rhonchi or crackles. There is prolongation on forced maneuver. Abdomen soft bowel sounds are heard. No masses or tenderness. Extremities are intact. No cyanosis clubbing or edema. Skin is without rash or lesion. Neurologic examination is brief but nonfocal. Results - Laboratory Findings CBC and BMP: 11/06/20 05:14 11/06/20 05:14 PT/INR, D-dimer PT 9.9 sec (9.0-12.0) 11/05/20 20:01 INR 0.9 (<1.2) 11/05/20 20:01 Abnormal lab findings: Abnormal Labs 11/05/20 11/05/20 11/05/20 20:01 20:01 20:01 WBC 12.6 H VBG pH VBG pCO2 VBG HCO3 Potassium 5.2 H Carbon Dioxide 21 L BUN 20 H Glucose 181 H POC Glucose (mg/dL) Plasma Lactic Acid Nando 3.7 H* Magnesium 2.6 H AST 65 H ALT 35 H Prolactin 11/05/20 11/06/20 11/06/20 20:02 05:14 05:14 WBC 10.9 H VBG pH 7.16 L* VBG pCO2 67 H VBG HCO3 23 L Potassium Carbon Dioxide BUN 18 H Glucose 151 H POC Glucose (mg/dL) Plasma Lactic Acid Nando Magnesium AST 42 H ALT 39 H Prolactin 2.6 L 11/06/20 11/06/20 05:52 11:40 WBC VBG pH VBG pCO2 VBG HCO3 Potassium Carbon Dioxide BUN Glucose POC Glucose (mg/dL) 133 H 124 H Plasma Lactic Acid Nando Magnesium AST ALT Prolactin - Diagnostic Findings Chest x-ray: image reviewed Assessment and Plan Assessment: Shortness of breath, and chest tightness, which may relate to cardiac disease, or her well-established severe/stage III COPD. History of osteoarthritis. History of anxiety. Plan: 11/06/2020. From the pulmonary standpoint, the patient's on albuterol sulfate and ipratropium bromide updrafts. The patient is also getting Solu-Medrol 60 mg every 6, and is also on Symbicort. We'll change to Symbicort dose to the higher dose. She's got severe disease. She apparently is scheduled for cardiac catheterization in the morning. No additional recommendations are made. We'll follow-up this patient during her hospitalization. She'll also see her primary care physician, Dr. Walter, post discharge. Time with Patient: Greater than 30
--- NOTE | 2020-11-06 18:38 | ECHOF ---
Referral Reason:syncope MEASUREMENTS -------- HEIGHT: 165.1 cm WEIGHT: 77.1 kg BP: 118/70 RVIDd: 2.3 cm (< 3.3) IVSd: 1.0 cm (0.6 - 1.1) LVIDd: 4.0 cm (3.9 - 5.3) LVPWd: 1.0 cm (0.6 - 1.1) IVSs: 1.1 cm LVIDs: 3.7 cm LVPWs: 0.9 cm Ao Diam: 3.1 cm (2.0 - 3.7) AV Cusp: 1.9 cm (1.5 - 2.6) LA Diam: 1.6 cm (2.7 - 3.8) MV EXCURSION: 11.236 mm (> 18.000) MV EF SLOPE: 78 mm/s (70 - 150) EPSS: 0.8 cm MV E Francisco: 0.56 m/s MV DecT: 278 ms MV A Francisco: 0.93 m/s MV E/A Ratio: 0.61 RAP: 5.00 mmHg RVSP: 15.84 mmHg FINDINGS -------- This was a technically difficult study with suboptimal views. The left ventricular size is normal. Left ventricular wall thickness is normal. Overall left vent ricular systolic function is severely impaired with, an EF between 25 - 30 %. Basal Segment Contrac ting only. The right ventricle is normal in size. The left atrial size is normal. The right atrial size is normal. Lumason used The aortic valve is trileaflet and appears structurally normal. The mitral valve is normal. There is trace mitral regurgitation. The tricuspid valve appears structurally normal. Trace tricuspid regurgitation present. Right sudheer tricular systolic pressure is normal at < 35 mmHg. There is no pulmonic regurgitation present. The aortic root size is normal. IVC Not well visulized. There is no pericardial effusion. CONCLUSIONS -------- 1. The left ventricular size is normal. 2. Left ventricular wall thickness is normal. 3. Overall left ventricular systolic function is severely impaired with, an EF between 25 - 30 %. 4. Basal Segment Rylan only. 5. The aortic valve is trileaflet and appears structurally normal. 6. There is trace mitral regurgitation. 7. Trace tricuspid regurgitation present. 8. There is no pericardial effusion. BEATER WORKER HELPER: Jodie Madden RDCS
[2020-11-06 20:15] LABS: Glucose,Whole Blood 153 mg/dL (75-99)
[2020-11-06] MEDS: SYMBICORT 160-4.5 MCG INHALER INHALATION SCH (20:26)
[2020-11-07] MEDS ORDERED: ALPRAZolam 0.5 MG TAB PO PRN (05:47)
[2020-11-07] MEDS: methylPREDNISolone SOD SUCCI 125 MG/2 ML VIAL IV SCH ×4 (05:53→23:55)
[2020-11-07 06:13] LABS: Glucose,Whole Blood 130 mg/dL (75-99)
[2020-11-07] MEDS: IPRATROPIUM-ALBUTEROL 3 ML NEB INHALATION SCH ×5 (08:06→21:07)
[2020-11-07] MEDS: SYMBICORT 160-4.5 MCG INHALER INHALATION SCH ×2 (08:06→21:07)
[2020-11-07] MEDS: METOPROLOL TARTRATE 12.5 MG TAB PO SCH ×2 (08:10→20:32)
[2020-11-07] MEDS ORDERED: ATORVASTATIN 80 MG TAB PO SCH (09:00)
[2020-11-07] MEDS ORDERED: ASPIRIN 81 MG PO SCH (09:00)
[2020-11-07 09:34] LABS: Albumin 3.7 g/dL (3.5-5.0); Calcium 9.1 mg/dL (8.4-10.2); Total Bilirubin 0.5 mg/dL (0.2-1.3); Total Protein 6.3 g/dL (6.3-8.2)
--- NOTE | 2020-11-07 10:36 | P.PN ---
Subjective Progress Note Date: 11/07/20 This is a pleasant 70-year-old female with past medical history significant for COPD, osteoarthritis, prior smoking history, she apparently quit smoking in 2019. She was seen in consultation yesterday, presented to the hospital following a syncopal episode, patient was also much more short of br eath than her usual. Patient was initially going to be scheduled yesterday for a stress test but because of eating breakfast this was not performed. She had an echo cardiogram with Doppler study performed which revealed a severely impaired left ventricular systolic function, ejection fraction documented to be 25-30%, only the basal segment was noris. Her blood pressure this morning 120/60 with a heart rate of 80, 98% on 3 L of oxygen. Sodium 137, potassium 4.0, BUN 19, creatinine 0.8. At the time of my examination this morning, the patient denies any chest discomfort, she does state that she had some difficulty in breathing through the night and is quite anxious at this morning regarding the possible cardiac catheterization. She also appears to be quite short of breath but states that this is mostly related to her anxiety, she has no difficulty lying flat in bed. Objective - Vital Signs Vital signs: Vital Signs Temp 97.9 F 11/07/20 08:00 Pulse 100 11/07/20 08:22 Resp 20 11/07/20 08:00 BP 119/60 11/07/20 08:00 Pulse Ox 98 11/07/20 08:00 Intake & Output 11/06/20 11/07/20 11/07/20 18:59 06:59 18:59 Intake Total 960 475 0 Balance 960 475 0 Weight 64.7 kg Intake: Oral 960 475 0 Other: Voiding Method Toilet # Voids 2 # Bowel Movements 0 - Exam PHYSICAL EXAMINATION: GENERAL: 70-year-old female in no acute distress at the time of my examination HEENT: Head is atraumatic, normocephalic. Pupils equal, round. Sclera anicteric. Conjunctiva are clear. Mucous membranes of the mouth are moist. Neck is supple. There is no elevated jugular venous pressure. No carotid bruit is heard. HEART EXAMINATION: Heart S1, S2 normal. No murmur or gallop heard. CHEST EXAMINATION: Lungs reveal coarse scattered wheezing with decreased air exchange throughout ABDOMEN: Soft, nontender. Bowel sounds are heard. No organomegaly noted. EXTREMITIES: 2+ peripheral pulses with no evidence of peripheral edema and no calf tenderness noted. NEUROLOGIC patient is awake, alert and oriented 3 . . - Labs CBC & Chem 7: 11/06/20 05:14 11/07/20 08:43 Labs: Abnormal Lab Results - Last 24 Hours (Table) 11/06/20 11/06/20 11/06/20 Range/Units 05:14 11:40 16:45 BUN (7-17) mg/dL Glucose (74-99) mg/dL POC Glucose (mg/dL) 124 H 121 H (75-99) mg/dL AST (14-36) U/L Prolactin 2.6 L (2.8-29.2) ng/mL 11/06/20 11/07/20 11/07/20 Range/Units 20:14 06:12 08:43 BUN 19 H (7-17) mg/dL Glucose 120 H (74-99) mg/dL POC Glucose (mg/dL) 153 H 130 H (75-99) mg/dL AST 41 H (14-36) U/L Prolactin (2.8-29.2) ng/mL Assessment and Plan Plan: Assessment and plan #1 syncope, rule out cardiac causes #2 shortness of breath with associated chest tightness, patient has severe COPD, possible exacerbation. Initial troponin was negative, we will obtain 2 subsequent troponins. #3 anxiety #4 prior history of smoking #5 severe cardiomyopathy with documented ejection fraction of 25-30% Plan Patient will be scheduled to undergo cardiac catheterization, the exact timing of this procedure has not yet been determined, we will discuss further with Dr. Almonte. We will continue a baby aspirin along with low-dose of metoprolol. add a small dose of BRIAN inhibitor to her medication regime. We will also request a d-dimer, 2 more sets of troponins. Further recommendations to follow. DNP note has been reviewed, I agree with a documented findings and plan of care. Patient was seen and examined.
[2020-11-07] MEDS: HEPARIN SODIUM,PORCINE/PF 5,000 UNIT/0.5 ML SYRINGE SQ SCH (11:07)
[2020-11-07 11:52] LABS: Glucose,Whole Blood 99 mg/dL (75-99)
--- NOTE | 2020-11-07 12:03 | P.PN ---
Subjective Progress Note Date: 11/07/20 No new complaints. Pt feels back to her normal baseline, she is still not sure what happened during her syncopal episode. Plan for C work up per cardiology for impaired LV function with EF of 25-30%. Objective - Vital Signs Vital signs: Vital Signs Temp 97.9 F 11/07/20 08:00 Pulse 100 11/07/20 08:22 Resp 20 11/07/20 08:00 BP 119/60 11/07/20 08:00 Pulse Ox 98 11/07/20 08:00 Intake & Output 11/06/20 11/07/20 11/07/20 18:59 06:59 18:59 Intake Total 960 475 0 Balance 960 475 0 Weight 64.7 kg Intake: Oral 960 475 0 Other: Voiding Method Toilet # Voids 2 # Bowel Movements 0 - Exam Gen: awake, alert HEENT: normocephalic, atraumatic, good hearing acuity, moist mucous membranes Resp: good air exchange, breathing comfortably with no accessory muscle use, end expiratory wheezing CVS: good distal perfusion x 4, regular rate and rhythm without murmurs GI: soft, NTTP, ND, appropriate bowel sounds : no SPT, no CVAT, ruiz catheter not present MSK: no pitting edema, no clubbing Neuro: non-focal, moving all extremities Psych: cooperative, euthymic mood - Labs CBC & Chem 7: 11/06/20 05:14 11/07/20 08:43 Labs: Abnormal Lab Results - Last 24 Hours (Table) 11/06/20 11/06/20 11/06/20 Range/Units 05:14 16:45 20:14 BUN (7-17) mg/dL Glucose (74-99) mg/dL POC Glucose (mg/dL) 121 H 153 H (75-99) mg/dL AST (14-36) U/L Prolactin 2.6 L (2.8-29.2) ng/mL 11/07/20 11/07/20 Range/Units 06:12 08:43 BUN 19 H (7-17) mg/dL Glucose 120 H (74-99) mg/dL POC Glucose (mg/dL) 130 H (75-99) mg/dL AST 41 H (14-36) U/L Prolactin (2.8-29.2) ng/mL Assessment and Plan Assessment: Loss of consciousness, unclear etiology, possibly cardiac vs COPD exacerbation w/ hypoxia/hypercapnia vs seizure -Cardiac monitoring -Fall and seizure precautions -Echocardiogram = depressed EF with WMA -C/w Solumedrol -Duonebs -Supplemental oxygen -Cardiology consult, pending [facility] -Check prolactin levels Hyperkalemia -S/p Calcium gluconate and kayexalate -Monitor for now Abnormal LFTs and Leukocytosis -Likely due to acute stressor DVT prophylaxis -Heparin subq The patient is admitted with an anticipated greater than 2 midnight stay for evaluation of loss of consciousness CODE STATUS: Full Code Discussed with: Patient, Anticipated discharge date: 2-[address]: Home
[2020-11-07] MEDS ORDERED: NITROGLYCERIN SL TABS 0.4 MG TAB SUBLINGUAL PRN (12:05)
[2020-11-07] MEDS ORDERED: HEPARIN SODIUM 1,000 UN/ML (10ML VL) IV PRN (13:13)
[2020-11-07 13:42] LABS: INR 0.9 (<1.2); Partial Thromboplastin Time 23.1 sec (22.0-30.0)
[2020-11-07] MEDS: HEPARIN SOD,PORK IN 0.45% NACL 25,000 UNIT in 0.45% NACL 1 250ML.BAG IV SCH (15:11)
[2020-11-07] MEDS: ALPRAZolam 0.25 MG TAB PO PRN (15:25)
--- NOTE | 2020-11-07 15:36 | P.PN ---
Subjective Progress Note Date: 11/07/20 Principal diagnosis: Shortness of breath. Chest pain. 70-year-old female, who sees Dr. Walter as her primary, presents to the emergency department on November 05, at 1950, with mental status changes, and apparently unresponsiveness. Apparently the patient was not feeling quite right at home. She went to get her oxygen. She became very confused and disoriented. Family called EMS, who transported her to the hospital. The patient was apparently cyanotic from the waist up. She had labored breathing, and was tachycardic. There was a concern for possible seizure. There were some nonsustained runs of ventricular tachycardia as well. Currently, the patient seemed be doing very well. She does tell us that the cardiologists feel like her issues were more cardiac and not so much pulmonary. She does have quite severe/stage III COPD, with an FEV1 that is 47% of predicted. She takes updrafts with both albuterol sulfate and ipratropium bromide, and also uses a combination inhaler that contains a long-acting beta agonist, inhaled corticosteroid, and long-acting muscarinic antagonist. She does have oxygen at home but she uses as needed. She also nebulizer machine at home as well. Finally she does carry a rescue inhaler, i.e. Ventolin HFA. Her medical history is primarily positive for COPD, and osteoarthritis. She is apparently going for cardiac catheterization tomorrow according to her doctor and to her. White count 10.9, hemoglobin and hematocrit and platelet count all normal. Electrolyte profile looks normal as well. Troponin appears to be normal. Brain CT was negative as was a chest x-ray other than for changes of COPD. Progress note dated 11/07/2020. 70-year-old female who sees Dr. Walter as a primary. The patient has stage III COPD with FEV1 is 47% of predicted. The patient came in with shortness of breath, and chest pain, and was tachycardic. She was to go for a catheterization today, but apparently it has been delayed until tomorrow. Here in the hospital, the patient has had elevated troponin levels of 1.770 and 1.670. She denies chest pain currently, she also denies any shortness of breath. In addition to COPD, she has osteoarthritis, but otherwise is doing relatively well. D-dimer is 0.63, sodium 137, potassium 4, chlorides 104, CO2 28, anion gap 5, BUN 19, and creatinine 0.82. There is no repeat chest x-ray at this time. Objective - Vital Signs Vital signs: Vital Signs Temp 97.9 F 11/07/20 12:00 Pulse 68 11/07/20 12:00 Resp 20 11/07/20 12:00 BP 151/65 11/07/20 12:00 Pulse Ox 96 11/07/20 12:00 Intake & Output 11/06/20 11/07/20 11/07/20 18:59 06:59 18:59 Intake Total 960 475 540 Balance 960 475 540 Weight 64.7 kg Intake: Oral 960 475 540 Other: Voiding Method Toilet # Voids 2 # Bowel Movements 0 - Exam No acute distress, oriented 3. Nasal O2 set at 3 L/m. No conversational dyspnea or use of accessory muscles. HEENT examination is grossly unremarkable. Neck supple. Full range of motion. No adenopathy thyromegaly or neck vein distention. Cardiovascular examination reveals regular rhythm rate. S1-S2 normal. No S3 or S4. No discernible murmur noted. Heart rate 68 bpm. Lungs reveal mostly clear but severely diminished breath sounds. No distinct wheezes rhonchi or crackles. There is prolongation on forced maneuver. Abdomen soft bowel sounds are heard. No masses or tenderness. Extremities are intact. No cyanosis clubbing or edema. Skin is without rash or lesion. Neurologic examination is brief but nonfocal. - Labs CBC & Chem 7: 11/06/20 05:14 11/07/20 08:43 Labs: Abnormal Lab Results - Last 24 Hours (Table) 11/06/20 11/06/20 11/07/20 Range/Units 16:45 20:14 06:12 D-Dimer (<0.60) mg/L FEU BUN (7-17) mg/dL Glucose (74-99) mg/dL POC Glucose (mg/dL) 121 H 153 H 130 H (75-99) mg/dL AST (14-36) U/L Troponin I (0.000-0.034) ng/mL 11/07/20 11/07/20 11/07/20 Range/Units 08:43 11:09 11:09 D-Dimer 0.63 H (<0.60) mg/L FEU BUN 19 H (7-17) mg/dL Glucose 120 H (74-99) mg/dL POC Glucose (mg/dL) (75-99) mg/dL AST 41 H (14-36) U/L Troponin I 1.670 H* (0.000-0.034) ng/mL Assessment and Plan Assessment: Shortness of breath, and chest tightness, which may relate to cardiac disease, or her well-established severe/stage III COPD. Chest pain, with elevated troponin levels, rule out myocardial ischemia. History of osteoarthritis. History of anxiety. Plan: 11/06/2020. From the pulmonary standpoint, the patient's on albuterol sulfate and ipratropium bromide updrafts. The patient is also getting Solu-Medrol 60 mg every 6, and is also on Symbicort. We'll change to Symbicort dose to the higher dose. She's got severe disease. She apparently is scheduled for cardiac catheterization in the morning. No additional recommendations are made. We'll follow-up this patient during her hospitalization. She'll also see her primary care physician, Dr. Walter, post discharge. 11/07/2020. From the pulmonary standpoint, the patient is doing well. Her COPD seems to be in good control. Patient will have a cardiac catheterization in the morning. Hopefully this will get to the bottom of her symptoms and her elevated troponin levels. Additional recommendations and suggestions are forthcoming. She'll follow up with Dr. Walter once she is discharged from the hospital. Currently, not having any chest pain or chest discomfort. We will continue to follow and make recommendations where appropriate. Time with Patient: Less than 30
[2020-11-07 16:53] LABS: Glucose,Whole Blood 150 mg/dL (75-99)
[2020-11-07 20:27] LABS: Glucose,Whole Blood 142 mg/dL (75-99)
[2020-11-07] MEDS: ALPRAZolam 0.5 MG TAB PO PRN (20:32)
[2020-11-08 04:18] VITALS: RESP 20
[2020-11-08] MEDS: ALPRAZolam 0.5 MG TAB PO PRN (05:16)
[2020-11-08 05:48] LABS: Basophils % (A) 0 %; Eosinophils % (A) 0 %; HCT 40.8 % (34.0-46.0); HGB 13.8 gm/dL (11.4-16.0); Lymphocytes # (A) 0.8 k/uL (1.0-4.8); Lymphocytes % (A) 7 %; MCH 31.5 pg (25.0-35.0); MCHC 33.8 g/dL (31.0-37.0); MCV 93.2 fL (80.0-100.0); Monocytes # (A) 0.6 k/uL (0-1.0); Monocytes % (A) 5 %; Neutrophils # (A) 10.7 k/uL (1.3-7.7); Neutrophils % (A) 88 %; Platelet Count 271 k/uL (150-450); RBC 4.38 m/uL (3.80-5.40); RDW 13.1 % (11.5-15.5); WBC 12.2 k/uL (3.8-10.6)
[2020-11-08 06:04] LABS: Partial Thromboplastin Time 47.5 sec (22.0-30.0); Prothrombin Time 10.3 sec (9.0-12.0)
[2020-11-08 06:22] LABS: Glucose,Whole Blood 135 mg/dL (75-99)
[2020-11-08] MEDS: methylPREDNISolone SOD SUCCI 125 MG/2 ML VIAL IV SCH ×2 (06:37→12:16)
[2020-11-08] MEDS: METOPROLOL TARTRATE 12.5 MG TAB PO SCH (06:37)
[2020-11-08] MEDS ORDERED: ATORVASTATIN 80 MG TAB PO ONE (07:00)
[2020-11-08] MEDS ORDERED: HEPARIN SODIUM,PORCINE 2,500 UNIT in SODIUM CHLORIDE 0.9% 250 ML IRRIGATION PRN (07:00)
[2020-11-08] MEDS ORDERED: HEPARIN SODIUM,PORCINE 10,000 UNIT in SODIUM CHLORIDE 0.9% 1,000 ML IRRIGATION PRN (07:00)
[2020-11-08] MEDS ORDERED: SODIUM CHLORIDE 0.9% 1,000 ML in EMPTY BAG 1 BAG IV ONE (07:00)
[2020-11-08] MEDS ORDERED: ASPIRIN 325 MG TAB PO ONE (07:00)
[2020-11-08] MEDS ORDERED: LIDOCAINE 1% INJ 10MG/ML (20 ML MDV) SQ ONE (09:28)
[2020-11-08] MEDS ORDERED: MIDAZOLAM 2 MG/2 ML VIAL IVP ONE (09:28)
[2020-11-08] MEDS ORDERED: fentaNYL (PF) 50 MCG/ML 2 ML AMP ONE (09:30)
[2020-11-08] MEDS ORDERED: fentaNYL (PF) 50 MCG/ML 2 ML AMP IVP ONE (09:34)
[2020-11-08] MEDS ORDERED: VERAPAMIL SYRINGE (5 MG/10 ML) INTRAARTER ONE (09:35)
[2020-11-08] MEDS ORDERED: HEPARIN SODIUM 1,000 UN/ML (10ML VL) IV ONE (09:35)
[2020-11-08] MEDS ORDERED: IV FLUID CONTINUATION 1,000 ML IV ONE (09:39)
[2020-11-08] MEDS ORDERED: IOPAMIDOL-370 125ML BTL INJ ONE (09:55)
[2020-11-08] MEDS: SYMBICORT 160-4.5 MCG INHALER INHALATION SCH (10:15)
[2020-11-08] MEDS: IPRATROPIUM-ALBUTEROL 3 ML NEB INHALATION SCH ×3 (10:15→15:34)
--- NOTE | 2020-11-08 11:13 | CC ---
CARDIAC CATHETERIZATION REPORT DATE OF SERVICE: November 08, 2020 PERFORMING PHYSICIAN: Aric Cerda MD. PROCEDURE PERFORMED: 1. Selective right and left coronary angiogram. 2. Left heart catheterization. INDICATION: This is a 70-year-old female patient who was admitted to the hospital with syncope. She was ruled in for acute coronary syndrome. The EKG showed changes concerning for severe underlying coronary artery disease. An echocardiogram was performed and showed cardiomyopathy with evidence of wall motion abnormalities concerning also for severe underlying coronary artery disease. APPROACH: Right radial artery. COMPLICATION: None. LEVEL OF SEDATION: Moderate with sedation length of 30 minutes. PROCEDURE DESCRIPTION: After obtaining informed consent, the patient was brought to cardiac bolt labeler. The right radial artery was cannulated using micropuncture technique and a micropuncture wire passed easily. Then I placed a 6-Angolan sheath at the right radial artery. I did give the patient 2 mg of verapamil IA and 5000 of heparin IV. Selective right and left coronary angiogram performed with JR4 and JL3.5 catheters. Left heart catheterization was performed using 5-Angolan pigtail catheter. Selective coronary angiogram. 1. The RCA is a large caliber vessel it is a dominant vessel, appeared to have mild disease in the midportion. It distally bifurcates into PDA branch, PLV branches, both appeared to be angiographically normal. 2. The left main is short but angiographically normal. It bifurcates into left circumflex and ramus intermedius and left anterior descending artery. 3. Left circumflex is a moderate caliber vessel, nondominant vessel and appeared to be angiographically normal. 4. The ramus intermedius is a large caliber vessel, seems to be angiographically normal as well. 5. The LAD: The proximal LAD has a lesion that appeared to be in the range of 40% to 50%. It gives rise into a large diagonal branch which appeared to be angiographically normal. The mid and distal LAD appeared to be angiographically normal. HEMODYNAMICS: The LVEDP was about 10 mmHg without significant gradient across aortic valve. CONCLUSION: 1. Intermediate lesion involving the proximal left anterior descending artery. 2. Normal LVEDP. POSTPROCEDURE MANAGEMENT: Medical treatment and follow up with the patient. MMODL / IJN: [id number] /
[2020-11-08 11:52] LABS: Glucose,Whole Blood 160 mg/dL (75-99)
[2020-11-08] MEDS: ALPRAZolam 0.25 MG TAB PO PRN (13:31)
[2020-11-08 16:16] VITALS: BP 128/94; PULSE 90; TEMP 97.6
[2020-11-08] MEDS: HEPARIN SOD,PORK IN 0.45% NACL 25,000 UNIT in 0.45% NACL 1 250ML.BAG IV SCH (16:29)
[2020-11-08 16:38] LABS: Glucose,Whole Blood 112 mg/dL (75-99)
--- NOTE | 2020-11-08 16:40 | P.DS ---
Providers Date of admission: 11/05/20 22:12 Expected date of discharge: 11/08/20 Attending physician: Jennifer Gomez MD Consults: 11/05/20 22:12 Consult Physician Urgent Consulting Provider: Virgil Walter Consult Reason/Comments: copd Do you want consulting provider notified?: Yes 11/06/20 01:43 Consult Physician Urgent Consulting Provider: Aric Cerda Consult Reason/Comments: Syncope Do you want consulting provider notified?: Yes Primary care physician: Stated None Hospital Course: Syncope COPD exacerbation Chronic Systolic Heart Failure, EF 30-35% Non-occlusive CAD Hyperkalemia 70 year old woman with COPD on 3L O2 at home presented after syncopal and unresponsive episode. Cardiology and pulmonary medicine consulted on this patient. Initially her ABG demonstrated acute on chronic hypercarbic respiratory failure, but she quickly recovered with oxygen, steroids, azithromycin, and nebulizers. She underwent cardiac workup with echo demonstrating reduced EF. Cardiology recommended LHC which was done on 11/08, and demonstrated non-occlusive CAD in the LAD, which was not intervened upon in favor of medical management. She was presc She was recommended for medical management and follow up with cardiology and pulmonary medicine. She was given an additional 4 days of steroids and azithromycin, with instructions to use nebulizers q6h for 4 days, then PRN. Also prescribed new medications for ASA, lipitor, and metoprolol. I spent 40 minutes preparing this discharge. Assessment: Gen: awake, alert HEENT: normocephalic, atraumatic, good hearing acuity, moist mucous membranes Resp: good air exchange, breathing comfortably with no accessory muscle use, moderately depressed air exchange, no wheezing CVS: good distal perfusion x 4, regular rate and rhythm without murmurs GI: soft, NTTP, ND, appropriate bowel sounds : no SPT, no CVAT, ruiz catheter not present MSK: no pitting edema, no clubbing Neuro: non-focal, moving all extremities Psych: cooperative, euthymic mood Patient Condition at Discharge: Good Plan - Discharge Summary Discharge Rx Participant: No New Discharge Prescriptions: New Ipratropium-Albuterol Nebulize [Duoneb 0.5 mg-3 mg/3 ml Soln] 3 ml INHALATION RT-Q4H PRN ml PRN Reason: Shortness Of Breath Or Wheezing Azithromycin [Zithromax] 500 mg PO DAILY 4 Days #4 tab predniSONE [Deltasone] 40 mg PO DAILY 4 Days #8 tab Ipratropium-Albuterol Nebulize [Duoneb 0.5 mg-3 mg/3 ml Soln] 3 ml INHALATION RT-QID ml Continue Fluticasone/Umeclidin/Vilanter [Trelegy Ellipta 200-62.5-25] 1 puff INHALATION RT-DAILY Acetaminophen Tab [Tylenol] 1,000 mg PO Q6HR PRN PRN Reason: Pain ALPRAZolam [Xanax] 0.5 mg PO DAILY PRN PRN Reason: Anxiety Albuterol Sulfate [Ventolin HFA] 2 puff INHALATION RT-Q6H PRN PRN Reason: Shortness Of Breath Discontinued Ipratropium-Albuterol Nebulize [Duoneb 0.5 mg-3 mg/3 ml Soln] 3 ml INHALATION RT-Q6H PRN PRN Reason: Shortness Of Breath Or Wheezing Discharge Medication List ALPRAZolam [Xanax] 0.5 mg PO DAILY PRN 11/05/20 [History] Acetaminophen Tab [Tylenol] 1,000 mg PO Q6HR PRN 11/05/20 [History] Albuterol Sulfate [Ventolin HFA] 2 puff INHALATION RT-Q6H PRN 11/05/20 [History] Fluticasone/Umeclidin/Vilanter [Trelegy Ellipta 200-62.5-25] 1 puff INHALATION RT-DAILY 11/05/20 [History] Azithromycin [Zithromax] 500 mg PO DAILY 4 Days #4 tab 11/06/20 [Rx] Ipratropium-Albuterol Nebulize [Duoneb 0.5 mg-3 mg/3 ml Soln] 3 ml INHALATION RT-Q4H PRN ml 11/06/20 [Rx] Ipratropium-Albuterol Nebulize [Duoneb 0.5 mg-3 mg/3 ml Soln] 3 ml INHALATION RT-QID ml 11/06/20 [Rx] predniSONE [Deltasone] 40 mg PO DAILY 4 Days #8 tab 11/06/20 [Rx] Follow up Appointment(s)/Referral(s): Aric Cerda MD [STAFF PHYSICIAN] - 1 Week (office will call you with an appointment, if you do not hear from them on Monday please call then) None,Stated [Primary Care Provider] - 1-2 days (call office when open to make follow up appointment) Patient Instructions/Handouts: *Surgery [facility] - After Heart Catheterization - Diagnostic Cardiac Sonographer Instructions, COPD (Chronic Obstructive Pulmonary Disease) (DC), Hypoxia (GEN) Discharge Disposition: HOME SELF-CARE
--- NOTE | 2020-11-08 17:11 | P.PN ---
Subjective Progress Note Date: 11/08/20 70-year-old female, who sees Dr. Walter as her primary, presents to the emergency department on November 05, at 1950, with mental status changes, and apparently unresponsiveness. Apparently the patient was not feeling quite right at home. She went to get her oxygen. She became very confused and disoriented. Family called EMS, who transported her to the hospital. The patient was apparently cyanotic from the waist up. She had labored breathing, and was tachycardic. There was a concern for possible seizure. There were some nonsustained runs of ventricular tachycardia as well. Currently, the patient seemed be doing very well. She does tell us that the cardiologists feel like her issues were more cardiac and not so much pulmonary. She does have quite severe/stage III COPD, with an FEV1 that is 47% of predicted. She takes updrafts with both albuterol sulfate and ipratropium bromide, and also uses a combination inhaler that contains a long-acting beta agonist, inhaled corticosteroid, and long-acting muscarinic antagonist. She does have oxygen at home but she uses as needed. She also nebulizer machine at home as well. Finally she does carry a rescue inhaler, i.e. Ventolin HFA. Her medical history is primarily positive for COPD, and osteoarthritis. She is apparently going for cardiac catheterization tomorrow according to her doctor and to her. White count 10.9, hemoglobin and hematocrit and platelet count all normal. Electrolyte profile looks normal as well. Troponin appears to be normal. Brain CT was negative as was a chest x-ray other than for changes of COPD. Progress note dated 11/07/2020. 70-year-old female who sees Dr. Walter as a primary. The patient has stage III COPD with FEV1 is 47% of predicted. The patient came in with shortness of breath, and chest pain, and was tachycardic. She was to go for a catheterization today, but apparently it has been delayed until tomorrow. Here in the hospital, the patient has had elevated troponin levels of 1.770 and 1.670. She denies chest pain currently, she also denies any shortness of breath. In addition to COPD, she has osteoarthritis, but otherwise is doing relatively well. D-dimer is 0.63, sodium 137, potassium 4, chlorides 104, CO2 28, anion gap 5, BUN 19, and creatinine 0.82. There is no repeat chest x-ray at this time. The patient was seen today 11/08/2020 in follow-up on the selective care unit. She is currently sitting up in bed. Awake and alert in no acute distress. States her breathing is back to her baseline. She is quite anxious to go home. She did undergo cardiac catheterization today that revealed intermediate lesion involving the proximal LAD. Normal LVEDP. Plans her medical treatment only. She is maintaining good O2 saturations in the mid 90s on 2 L/m per nasal connie cuate. She's been afebrile. Hemodynamically stable. White count 12.2. Hemoglobin 13.8. Lymphocytes 0.8. Objective - Vital Signs Vital signs: Vital Signs Temp 97.6 F 11/08/20 16:16 Pulse 90 11/08/20 16:16 Resp 20 11/08/20 16:16 BP 128/94 11/08/20 16:16 Pulse Ox 95 11/08/20 16:16 Intake & Output 11/07/20 11/08/20 11/08/20 18:59 06:59 18:59 Intake Total 540 131.277 700 Balance 540 131.277 700 Weight 67.5 kg Intake: IV 100 Intake, IV Titration 131.277 600 Amount Heparin Sod,Pork in 0.45% 131.277 NaCl 25,000 unit In 0.45 % NaCl 1 250ml.bag @ 12 UNITS/KG/HR 7.764 mls/hr IV .Q24H [facility] Rx#: [id number] IV Fluid Continuation 1, 600 000 ml @ 0 mls/hr IV .[facility] Rx#:[id number] Oral 540 0 Other: Voiding Method Toilet # Voids 1 1 - Exam No acute distress, oriented 3. Nasal O2 set at 3 L/m. No conversational dyspnea or use of accessory muscles. HEENT examination is grossly unremarkable. Neck supple. Full range of motion. No adenopathy thyromegaly or neck vein distention. Cardiovascular examination reveals regular rhythm rate. S1-S2 normal. No S3 or S4. No discernible murmur noted. Heart rate 68 bpm. Lungs reveal mostly clear but severely diminished breath sounds. No distinct wheezes rhonchi or crackles. There is prolongation on forced maneuver. Abdomen soft bowel sounds are heard. No masses or tenderness. Extremities are intact. No cyanosis clubbing or edema. Skin is without rash or lesion. Neurologic examination is brief but nonfocal. - Labs CBC & Chem 7: 11/08/20 05:07 11/07/20 08:43 Labs: Abnormal Lab Results - Last 24 Hours (Table) 11/07/20 11/08/20 11/08/20 Range/Units 20:25 05:07 05:07 WBC 12.2 H (3.8-10.6) k/uL Neutrophils # 10.7 H (1.3-7.7) k/uL Lymphocytes # 0.8 L (1.0-4.8) k/uL APTT 47.5 H (22.0-30.0) sec POC Glucose (mg/dL) 142 H (75-99) mg/dL 11/08/20 11/08/20 11/08/20 Range/Units 06:21 11:50 16:36 WBC (3.8-10.6) k/uL Neutrophils # (1.3-7.7) k/uL Lymphocytes # (1.0-4.8) k/uL APTT (22.0-30.0) sec POC Glucose (mg/dL) 135 H 160 H 112 H (75-99) mg/dL Assessment and Plan Assessment: Shortness of breath, and chest tightness, which intermediate disease involving the proximal LAD. No plans for intervention. Acute exacerbation of well-established severe/stage III COPD. Chest pain, with elevated troponin levels, rule out myocardial ischemia. History of osteoarthritis. History of anxiety. Plan: The patient was seen and evaluated by Dr. Dr. Nevin Ashby and back to her baseline from the pulmonary standpoint Home once cleared medically Follow up with Dr. Walter in our office I, the cosigning physician, performed a history & physical examination of the patient. Lungs sounds are clear diminished. Maintaining good O2 saturations in the 90s on 2 L/m per nasal cannula. I discussed the assessment and plan of care with my nurse practitioner, Mariama Kerr. I attest to the above note as dictated by her.
[2020-11-09] MEDS ORDERED: ASPIRIN 81 MG PO SCH (09:00)
--- NOTE | 2020-11-24 13:28 | CDI ---
Documentation Clarification Form Date: 11/24/2020 02:27:00 AM From: Rafael Carey Phone: Admit Date: 11/05/2020 10:12:00 PM Patient Name: Luna Fleming Visit Number: [id number] Discharge Date: 11/08/2020 05:35:00 PM ATTENTION: The Clinical Documentation Specialists (CDI) and [facility] Coding Staff appreciate your assistance in clarifying documentation. Please respond to the clarification below the line at the bottom and electronically sign. The CDI & [facility] Coding staff will review the response and follow-up if needed. Please note: Queries are made part of the Legal Health Record. If you have any questions, please contact the author of this message via ITS. Dr. Valenzuela Chest pain, with elevated troponin levels, rule out myocardial ischemia documented in PN 11/07 & 11/08 Impression and ruled in ACS documented in the indication of Cath report . But ACS and/or myocardial ischemia not documented in subsequent documentation. Acute exacerbation of well-established severe/stage III COPD, Chest pain, with elevated troponin levels, rule out myocardial ischemia , in PN 11/07 & 11/08 Impression. Pulmonary consult states as Shortness of breath, and chest tightness, which may relate to cardiac disease, or her well-established severe/stage III COPD. Cardiology consult states as Impression :Syncope, unclear Etiology, Hyperkalemia - resolved & COPD exacerbation. Cath report indication states as She was ruled in for acute coronary syndrome. The EKG showed changes concerning for severe underlying coronary artery disease. An echocardiogram was performed and showed cardiomyopathy with evidence of wall motion abnormalities concerning also for severe underlying coronary artery disease and Cath report impression documented as Intermediate lesion involving the proximal left anterior descending artery (40%- 50%) and Normal LVEDP. Discharge summary impression states as chronic systolic heart failure EF 30-35 %. and hospital course states as She underwent cardiac workup with echo demonstrating reduced EF. Cardiology recommended LHC which was done on 11/08,and demonstrated non-occlusive CAD in the LAD, which was not intervened upon in favor of medical management. She was presc She was recommended for medical management and follow up with cardiology and pulmonary medicine. She was given an additional 4 days of steroids and azithromycin, with instructions to use nebulizers q6h for 4 days, then PRN.Also prescribed new medications for ASA, Lipitor, and metoprolol. History/Risk Factors: Xray Consistent COPD exacerbation , Acute on chronic respiratory failure quickly recovered in ED, Loss of consciousness or syncope may be due to severe COPD/stage III COPD with hypoxia/hypercapnia or cardiac cause or seizure. Clinical Indicators: Vitals on ED : Temp-98.1 F, Pulse rate-134 , RR-24,22 , F2hnp-20 5NC, 97 BIPAP. Vitals on H&P : Temp-97.8 F, BP-105/61, Pulse rate-99, Res 17 , 18 , Pulse Oxy- 100 on 2 L NC Troponin: 11/05 - 0.012, 11/07-1.670, 11/07-1.770. DIAGNOSTICS EKG on 11/06 reveals sinus tachycardia, wide QRS, Twave inversions in inferior lateral leads, poor R wave progression. Cath report on 11/08 impression documented as Intermediate lesion involving the proximal left anterior descending artery (40%- 50%) and Normal LVEDP. Treatment: Heparin IV, Aspirin PO,IV antibiotics, IV steroids, Duo nebs, Oxygen supplement. Please clarify the Acute coronary syndrome , if known: [ ] STEMI (type 1) [ ] NSTEMI (type 1) [ ] ACS Ruled out. [ ] Type II MD due to COPD Exacerbation. [ ] Type II MD due to other cause , please specify the cause [ ] Unable to determine Type II MD due to COPD exacerbation with predisposing condition of chronic systolic HF MTDD
== END 2020-11-08 17:35 | disposition home or self-care (01) | DRG 189 ==
LOC: EC 19:51 → 3SCARD 22:12
PROVIDERS: ADMIT Internal Medicine; ATTEND Internal Medicine
PROC: 5A09357 Assistance with Respiratory Ventilation, Less than 24 Consecutive Hours, Continuous Positive Airway Pressure (ICD-10-PCS; principal; 2020-11-05)
PROC: 4A023N7 Measurement of Cardiac Sampling and Pressure, Left Heart, Percutaneous Approach (ICD-10-PCS; 2020-11-08)
PROC: B2111ZZ Fluoroscopy of Multiple Coronary Arteries using Low Osmolar Contrast (ICD-10-PCS; 2020-11-08)
DX: J96.21 Acute and chronic respiratory failure with hypoxia (principal); I21.A1 Myocardial infarction type 2; J44.1 Chronic obstructive pulmonary disease with (acute) exacerbation; I50.22 Chronic systolic (congestive) heart failure; I42.9 Cardiomyopathy, unspecified; E87.2 Acidosis; I47.2 Ventricular tachycardia; J96.22 Acute and chronic respiratory failure with hypercapnia; I25.10 Atherosclerotic heart disease of native coronary artery without angina pectoris; M19.042 Primary osteoarthritis, left hand; M19.041 Primary osteoarthritis, right hand; D72.829 Elevated white blood cell count, unspecified; F41.9 Anxiety disorder, unspecified; Z20.822 Contact with and (suspected) exposure to COVID-19; F03.90 Unspecified dementia, unspecified severity, without behavioral disturbance, psychotic disturbance, mood disturbance, and anxiety; E87.5 Hyperkalemia; Z90.49 Acquired absence of other specified parts of digestive tract; Z90.89 Acquired absence of other organs; Z87.891 Personal history of nicotine dependence; Z80.1 Family history of malignant neoplasm of trachea, bronchus and lung; Z82.49 Family history of ischemic heart disease and other diseases of the circulatory system; Z99.81 Dependence on supplemental oxygen; Z79.82 Long term (current) use of aspirin; Z79.51 Long term (current) use of inhaled steroids; Z79.52 Long term (current) use of systemic steroids; Z79.899 Other long term (current) drug therapy
CPT/HCPCS: 36415; 70450; 71045; 80053; 82803; 83605; 83735; 83880; 84146; 84484; 85025; 85027; 85379; 85610; 85730; 87635; 93005; 93306; 93458; 94640; 94660; 96361; 96374; 99285

== ENCOUNTER 2024-05-16 12:16 | Inpatient (IN) | payer MEDICARE ==
--- NOTE | 2024-05-16 12:37 | ED ---
Chest Pain HPI - General Chief Complaint: Chest Pain Stated Complaint: chest pain Time Seen by Provider: 05/16/24 12:17 Source: patient, EMS, RN notes reviewed, old records reviewed Mode of arrival: EMS Limitations: no limitations - History of Present Illness Initial Comments: This is a 74-year-old female to the ER for evaluation of chest pain and short ness of breath patient is history of chronic shortness of breath coming in with chest pain and right hip pain hip pain occurred after a fall is been going on for 2 days with increasing debility and weakness and now complaining of chest pain today which woke her up from sleep this morning but the chest pain prompted the visit today but at bedside states they were coming to the ER today anyway for patient not getting out of bed for the last few days MD Complaint: chest pain, other (Hip and pelvis pain) -: days(s) Onset: during rest, during exertion Pain Location: substernal Pain Radiation: LUE Severity: moderate Severity scale (1-10): 4 Quality: aching Consistency: constant Improves With: nothing Worsens With: nothing Anginal Symptoms: dyspnea Other Symptoms: palpitations Treatments Prior to Arrival: none - Related Data Home Medications Medication Instructions Recorded Confirmed ALPRAZolam [Xanax] 0.5 mg PO BID PRN 11/05/20 05/16/24 Albuterol Sulfate [Ventolin HFA] 1 - 2 puff INHALATION RT-Q6H PRN 11/05/20 05/16/24 Fluticasone/Umeclidin/Vilanter 1 puff INHALATION RT-DAILY 11/05/20 05/16/24 [Trelechas Ellipta 200-62.5-25] Atorvastatin Calcium [Lipitor] 40 mg PO DAILY 09/12/22 05/16/24 Citalopram Hydrobromide 40 mg PO DAILY 09/12/22 05/16/24 [Citalopram HBr] Losartan [Cozaar] 25 mg PO DAILY 09/12/22 05/16/24 Metoprolol Succinate [Metoprolol 12.5 mg PO DAILY 09/12/22 05/16/24 Succinate ER] Ipratropium-Albuterol Nebulize 3 ml INHALATION RT-QID 05/16/24 05/16/24 [Duoneb 0.5 mg-3 mg/3 ml Soln] Previous Rx's Medication Instructions Recorded Famotidine [Pepcid] 20 mg PO DAILY #30 tab 05/19/24 predniSONE 10 mg PO DIRECTED #40 tab 05/19/24 Allergies Allergy/AdvReac Type Severity Reaction Status Date / Time No Known Allergies Allergy Verified 05/16/24 14:30 Review of Systems ROS Statement: Those systems with pertinent positive or pertinent negative responses have been documented in the HPI. ROS Other: All systems not noted in ROS Statement are negative. EKG Findings - EKG Comments: EKG Findings:: EKG is sinus 99 CT 129 QRS 121 QTc 416 - EKG Results: EKG: interpreted by ALEKSANDRA Past Medical History Past Medical History: Coronary Artery Disease (CAD), COPD, Hyperlipidemia, Osteoarthritis (OA) Additional Past Medical History / Comment(s): SEE DR. KRAUSE H & P. PATIENT STATES SHE IS MORE SOB, WHEEZING. USE O2 @ 2L AT NIGHT OR WHEN MORE SOB. Arthritis in bilateral hands. History of Any Multi-Drug Resistant Organisms: None Reported Past Surgical History: Cholecystectomy, Tonsillectomy Past Anesthesia/Blood Transfusion Reactions: No Reported Reaction Past Psychological History: No Psychological Hx Reported Smoking Status: Former smoker Past Alcohol Use History: None Reported Past Drug Use History: None Reported - Past Family History Father Family Medical History: Cancer Additional Family Medical History / Comment(s): Father of lung cancer at the age of 52 yrs. He was a ex smoker. Mother Family Medical History: Congestive Heart Failure (CHF) Additional Family Medical History / Comment(s): Mother of CHF at the age of 79yrs. General Exam Limitations: no limitations General appearance: alert, in no apparent distress, anxious, in distress Head exam: Present: atraumatic, normocephalic, normal inspection Eye exam: Present: normal appearance, PERRL, EOMI. Absent: scleral icterus, conjunctival injection, periorbital swelling ENT exam: Present: normal exam, mucous membranes moist Neck exam: Present: normal inspection. Absent: tenderness, meningismus, lymphadenopathy Respiratory exam: Present: normal lung sounds bilaterally. Absent: respiratory distress, wheezes, rales, rhonchi, stridor Cardiovascular Exam: Present: regular rate, normal rhythm, normal heart sounds. Absent: systolic murmur, diastolic murmur, rubs, gallop, clicks GI/Abdominal exam: Present: soft, normal bowel sounds. Absent: distended, tenderness, guarding, rebound, rigid Extremities exam: Present: normal inspection, full ROM, normal capillary refill. Absent: tenderness, pedal edema, joint swelling, calf tenderness Back exam: Present: normal inspection Neurological exam: Present: alert, oriented X3, CN II-XII intact Psychiatric exam: Present: normal affect, normal mood Skin exam: Present: warm, dry, intact, normal color. Absent: rash Course Vital Signs 05/16/24 05/16/24 05/16/24 12:28 12:47 13:02 Temperature 98 F Pulse Rate 98 97 Respiratory 20 20 Rate Blood Pressure 119/63 O2 Sat by Pulse 98 Oximetry 05/16/24 05/16/24 05/16/24 13:14 16:30 16:40 Temperature Pulse Rate 101 H 96 97 Respiratory Rate Blood Pressure O2 Sat by Pulse Oximetry 05/16/24 05/16/24 05/16/24 17:05 18:00 21:34 Temperature Pulse Rate 88 93 82 Respiratory 26 H 24 13 Rate Blood Pressure 128/70 134/67 131/78 O2 Sat by Pulse 96 98 96 Oximetry 05/17/24 05/17/24 05/17/24 02:00 07:00 07:57 Temperature 98.0 F Pulse Rate 81 76 79 Respiratory 20 18 21 Rate Blood Pressure 137/94 131/83 149/72 O2 Sat by Pulse 99 98 97 Oximetry 05/17/24 05/17/24 05/17/24 09:32 10:07 10:10 Temperature Pulse Rate 76 72 Respiratory 18 Rate Blood Pressure 150/67 O2 Sat by Pulse 98 98 Oximetry 05/17/24 05/17/24 05/17/24 10:23 12:57 13:08 Temperature Pulse Rate 74 66 68 Respiratory Rate Blood Pressure O2 Sat by Pulse Oximetry 05/17/24 05/17/24 13:20 13:42 Temperature Pulse Rate 72 81 Respiratory 19 19 Rate Blood Pressure 144/69 137/69 O2 Sat by Pulse 95 95 Oximetry - Reevaluation(s) Reevaluation #1: 05/16/24 14:43 Medical records reviewed Reevaluation #2: Patient is requiring BiPAP. In the emergency room secondary to severe respiratory distress Reevaluation #3: Patient informed of results questions answered Reevaluation #4: Was pt. sent in by a medical professional or institution (ANA Valencia, TRACKMOBILE OPERATOR, urgent care, hospital, or [facility]...) When possible be specific @ -no Did you speak to anyone other than the patient for history (EMS, parent, family, police, friend...)? What history was obtained from this source @ -no Did you review nursing and triage notes (agree or disagree)? Why? @ -agree Are old charts reviewed (outside hosp., previous admission, EMS record, old EKG, old radiological studies, urgent care reports/EKG's, [facility] records)? Report findings @ -yes Differential Diagnosis (chest pain, altered mental status, abdominal pain women, abdominal pain men, vaginal bleeding, weakness, fever, dyspnea, syncope, headache, dizziness, GI bleed, back pain, seizure, CVA, palpatations, mental health, musculoskeletal)? @ -prior EKG interpreted by me (3pts min.). @ -yes X-rays interpreted by me (1pt min.). @ -yes positive for CHF CT interpreted by me (1pt min.). @ -no U/S interpreted by me (1pt. min.). @ -no What testing was considered but not performed or refused? (CT, X-rays, U/S, labs)? Why? @ -none What meds were considered but not given or refused? Why? @ -none Did you discuss the management of the patient with other professionals (professionals i.e. ANA Valencia, TRACKMOBILE OPERATOR, lab, RT, psych nurse, social security specialist, advertising columnist, teacher, protection officer, therapeutic case manager)? Give summary @ -no Was smoking cessation discussed for >3mins.? @ -no Was critical care preformed (if so, how long)? @ -yes31 Were there social determinants of health that impacted care today? How? ([place] elessness, low income, unemployed, alcoholism, drug addiction, transportation, low edu. Level, literacy, decrease access to med. care, senior living, rehab)? @ -none Was there de-escalation of care discussed even if they declined (Discuss DNR or withdrawal of care, Hospice)? DNR status @ -no What co-morbidities impacted this encounter? (DM, HTN, Smoking, COPD, CAD, Cancer, CVA, ARF, Chemo, Hep., AIDS, mental health diagnosis, sleep apnea, morbid obesity)? @ -none Was patient admitted / discharged? Hospital course, mention meds given and route, prescriptions, significant lab abnormalities, going to OR and other pertinent info. @ -74 female to ER with respiratory failure secondary to COPD and CHF will admit for further evaluation and treatment and supportive care Admitted Undiagnosed new problem with uncertain prognosis? @ -no Drug Therapy requiring intensive monitoring for toxicity (Heparin, Nitro, Insulin, Cardizem)? @ -no Were any procedures done? @ -no Diagnosis/symptom? @ -COPD respiratory failure CHF Acute, or Chronic, or Acute on Chronic? @ -Acute Uncomplicated (without systemic symptoms) or Complicated (systemic symptoms)? @ -Complicated Side effects of treatment? @ -no Exacerbation, Progression, or Severe Exacerbation? @ -exacerbation Poses a threat to life or bodily function? How? (Chest pain, [place], [place], pneumonia, PE, COPD, DKA, ARF, appy, cholecystitis, CVA, Diverticulitis, Homicidal, Suicidal, threat to staff... and all critical care pts) @ -yes respiratory distress Reevaluation #5: Differential Chest Pain: Stable Angina, Unstable Angina, STEMI, NSTEMI Aortic Dissection, Pneumothorax, Musculoskeletal, Esophageal Spasm GERD, Cholecystitis, Pancreatitis, Zoster, this is not meant to be an all-inclusive list. - Consultations Consultation #1: Spoke with admitting physicians who agreed to admit this patient Chest Pain MDM - MDM 74 female to ER for severe COPD exacerbation and dyspnea. Patient has respiratory failure and hypoxia and will be admitted for further evaluation and management with supportive care Critical Care Time Critical Care Time: Yes Total Critical Care Time: 31 Disposition Clinical Impression: Respiratory failure, Hypoxia, Pneumonia, COPD exacerbation Disposition: ADMITTED IP TO THIS HOSP Condition: Critical Is patient prescribed a controlled substance at d/c from ED?: No Time of Disposition: 16:15
[2024-05-16] MEDS: IPRATROPIUM-ALBUTEROL 3 ML NEB INHALATION STA ×2 (12:58→16:30)
[2024-05-16 13:14] LABS: Basophils % (A) 0 %; Eosinophils # (A) 0.3 k/uL (0-0.7); Eosinophils % (A) 3 %; HCT 35.6 % (34.0-46.0); HGB 11.4 gm/dL (11.4-16.0); Lymphocytes # (A) 1.2 k/uL (1.0-4.8); Lymphocytes % (A) 12 %; MCH 34.1 pg (25.0-35.0); MCHC 32.1 g/dL (31.0-37.0); Macrocytosis Moderate; Mean Platelet Volume 8.8; Monocytes # (A) 0.6 k/uL (0-1.0); Monocytes % (A) 6 %; Neutrophils # (A) 7.8 k/uL (1.3-7.7); Neutrophils % (A) 77 %; Platelet Count 180 k/uL (150-450); RBC 3.36 m/uL (3.80-5.40); RDW 13.9 % (11.5-15.5); WBC 10.1 k/uL (3.8-10.6)
[2024-05-16 13:20] LABS: INR 0.9 (<1.2); Partial Thromboplastin Time 26.7 sec (22.0-30.0); Prothrombin Time 10.4 sec (10.0-12.5)
[2024-05-16 13:34] LABS: ALT 19 U/L (4-34); AST 23 U/L (14-36); African American GFR (CKD) >90 (>60 ml/min/1.73 sqM); Albumin 3.5 g/dL (3.5-5.0); Alkaline Phosphatase 75 U/L (38-126); Anion Gap 1 mmol/L; Blood Urea Nitrogen 16 mg/dL (7-17); Calcium 8.6 mg/dL (8.4-10.2); Carbon Dioxide 37 mmol/L (22-30); Chloride 102 mmol/L (98-107); Glucose 95 mg/dL (74-99); Non-African American GFR(CKD) >90 (>60 ml/min/1.73 sqM); Phosphorus 3.4 mg/dL (2.5-4.5); Potassium 3.1 mmol/L (3.5-5.1); Sodium 140 mmol/L (137-145); Total Bilirubin 0.4 mg/dL (0.2-1.3); Total Protein 6.1 g/dL (6.3-8.2)
[2024-05-16 13:44] LABS: NT-Pro-B-Type Natriuretic Pept 365 pg/mL
[2024-05-16] MEDS: SODIUM CHLORIDE 0.9% 1,000 ML IV STA (13:53)
[2024-05-16] MEDS: MORPHINE SULFATE 4 MG/ML SYRINGE IV STA (13:53)
--- NOTE | 2024-05-16 14:56 | XR ---
EXAMINATION TYPE: XR chest 2V DATE OF EXAM: 05/16/2024 1:55 PM CLINICAL INDICATION: Female, 74 years old with history of Weakness; [facility] COMPARISON: Chest radiographs from 11/05/2020 TECHNIQUE: XR chest 2V Frontal view of the chest. FINDINGS: Lungs/Pleura: There is flattening of the diaphragm with increased lucency of the lungs. No evidence o f pneumothorax, pleural effusion or focal consolidation. Pulmonary vascularity: Unremarkable. Heart/mediastinum: Cardiomediastinal silhouette is unremarkable. Musculoskeletal: No acute osseous pathology. Other findings: Breast implants bilaterally. IMPRESSION: 1. No acute cardiopulmonary disease process. 2. COPD changes. [facility], , 05/16/2024 2:20 PM
--- NOTE | 2024-05-16 14:56 | XR ---
EXAMINATION TYPE: XR Hip Bilateral and AP pelvis DATE OF EXAM: 05/16/2024 1:56 PM CLINICAL INDICATION: Female, 74 years old with history of fal; [facility] COMPARISON: None. TECHNIQUE: XR Hip Bilateral and AP pelvis; hip was examined in the frontal and lateral projections an d a AP pelvis. FINDINGS: No evidence for acute process, joint dislocation or significant soft tissue swelling. Osteo phyte formation of the superior acetabulum of the hip. There is mild joint space narrowing. IMPRESSION: 1. No evidence for acute process. 2. Mild hip osteoarthrosis. [facility], , 05/16/2024 2:32 PM
[2024-05-16] MEDS ORDERED: NALOXONE 0.4 MG/ML 1 ML VIAL IV PRN (16:17)
[2024-05-16] MEDS ORDERED: ONDANSETRON 4 MG/2 ML VIAL IVP PRN (16:22)
[2024-05-16] MEDS: POTASSIUM BICARBONATE/CIT AC 20 MEQ TABLET.EFF PO ONE (18:42)
[2024-05-16] MEDS: methylPREDNISolone SOD SUCCI 125 MG/2 ML VIAL IV STA (18:42)
[2024-05-16] MEDS: MORPHINE SULFATE 4 MG/ML SYRINGE IV PRN (18:42)
[2024-05-16] MEDS: SODIUM CHLORIDE 0.9% 1,000 ML IV SCH (18:43)
[2024-05-17] MEDS: methylPREDNISolone SOD SUCCI 125 MG/2 ML VIAL IV SCH ×2 (00:54→02:08)
[2024-05-17] MEDS: ALBUTEROL NEBULIZED 2.5 MG/3 ML INHALATION SCH (01:56)
[2024-05-17] MEDS: ALPRAZolam 0.5 MG TAB PO STA (02:25)
--- NOTE | 2024-05-17 05:15 | P.CNPUL ---
History of Present Illness Consult date: 05/17/24 Requesting physician: Jd Rojas Reason for consult: COPD Chief complaint: Fall, shortness of breath History of present illness: She is a 74-year-old female with past medical history significant for CAD with PCI/stenting of the RCA, CHF, COPD, chronic hypoxemic respiratory failure normally on 2 L/min nasal cannula, and ongoing tobacco dependence. Her established lifter is Dr. Walter. She has severe COPD, FEV1 34% of predicted. Currently on Trelegy maintenance inhaler and as needed albuterol nebs. On Monday, the patient had a fall while in the bathroom. Denies losing consciousness. Denies hitting her head. She states that she got tangled up in her oxygen cord. She did fall on her left side. She does have some left-sided chest pain and right hip pain following the fall. Over the last couple days becoming progressively short of breath. She also has been progressively more weak.. Denies any sick contacts or infectious symptoms. No chest tightness, wheezing, change in her cough. Denies any chest pain. Denies any increased lower extremity swelling, orthopnea, PND. Presented the emergency department yesterday afternoon. Chest x-ray does not show any acute cardiopulmonary process. No evidence of pneumothorax, pleural effusion, or focal consolidation. Hyperinflation, consistent with COPD. Hip/pelvis x-ray no evidence of acute process bilaterally.CBC unremarkable. CMP also unremarkable. Troponin is less than 0.012 x 3. NT proBNP 365. EKG: Sinus rhythm, rate 99 bpm, no obvious acute ischemic changes. Patient is currently being evaluated in the emergency department, Left-sided chest pain is reproducible when I push on it. Admits shortness of breath is slightly worse than baseline. She has pursed lip breathing. Tachypneic. She is on 3 L/min nasal cannula. Patient continues to smoke cigarettes on and off. Currently on a combination of bronchodilators and high-dose IV steroids. Lung sounds are markedly diminished throughout. In some mild respiratory distress. Review of Systems Constitutional: Reports fatigue, Reports poor appetite, Reports weight loss, Denies chills, Denies fever, Denies weight gain Ears, nose, mouth and throat: Denies headache, Denies nasal congestion, Denies nasal discharge, Denies post-nasal drip, Denies sinus pain, Denies sinus pressure, Denies sore throat Cardiovascular: Denies leg edema, Denies lightheadedness, Denies orthopnea, Denies palpitations, Denies paroxysmal nocturnal dyspnea, Denies syncope Respiratory: Reports dyspnea, Reports home oxygen, Reports pain on inspiration, Denies congestion, Denies cough, Denies cough with sputum, Denies hemoptysis, Denies wheezing Gastrointestinal: Denies abdominal pain, Denies change in bowel habits, Denies nausea, Denies vomiting Genitourinary: Denies dysuria Musculoskeletal: Denies frequent falls, Denies leg numbness/tingling, Denies limitation of motion Integumentary: Denies rash Neurological: Denies balance difficulties, Denies confusion, Denies head injury, Denies headaches, Denies seizures, Denies syncope, Denies visual changes Psychiatric: Denies anxiety, Denies depression Past Medical History Past Medical History: Coronary Artery Disease (CAD), COPD, Hyperlipidemia, Osteoarthritis (OA) Additional Past Medical History / Comment(s): SEE DR. KRAUSE H & P. PATIENT STATES SHE IS MORE SOB, WHEEZING. USE O2 @ 2L AT NIGHT OR WHEN MORE SOB. Arthritis in bilateral hands. History of Any Multi-Drug Resistant Organisms: None Reported Past Surgical History: Cholecystectomy, Tonsillectomy Past Anesthesia/Blood Transfusion Reactions: No Reported Reaction Past Psychological History: No Psychological Hx Reported Smoking Status: Former smoker Past Alcohol Use History: None Reported Past Drug Use History: None Reported - Past Family History Father Family Medical History: Cancer Additional Family Medical History / Comment(s): Father of lung cancer at the age of 52 yrs. He was a ex smoker. Mother Family Medical History: Congestive Heart Failure (CHF) Additional Family Medical History / Comment(s): Mother of CHF at the age of 79yrs. Medications and Allergies Home Medications Medication Instructions Recorded Confirmed Type ALPRAZolam [Xanax] 0.5 mg PO BID PRN 11/05/20 05/16/24 History Albuterol Sulfate [Ventolin HFA] 1 - 2 puff INHALATION RT-Q6H PRN 11/05/20 05/16/24 History Fluticasone/Umeclidin/Vilanter 1 puff INHALATION RT-DAILY 11/05/20 05/16/24 History [Trelegy Ellipta 200-62.5-25] Atorvastatin Calcium [Lipitor] 40 mg PO DAILY 09/12/22 05/16/24 History Citalopram Hydrobromide 40 mg PO DAILY 09/12/22 05/16/24 History [Citalopram HBr] Losartan [Cozaar] 25 mg PO DAILY 09/12/22 05/16/24 History Metoprolol Succinate [Metoprolol 12.5 mg PO DAILY 09/12/22 05/16/24 History Succinate ER] Ipratropium-Albuterol Nebulize 3 ml INHALATION RT-QID 05/16/24 05/16/24 History [Duoneb 0.5 mg-3 mg/3 ml Soln] Allergies Allergy/AdvReac Type Severity Reaction Status Date / Time No Known Allergies Allergy Verified 05/16/24 14:30 Physical Exam Vitals: Vital Signs Temp Pulse Resp BP Pulse Ox 05/16/24 21:34 82 13 131/78 96 05/16/24 18:00 93 24 134/67 98 05/16/24 17:05 88 26 H 128/70 96 05/16/24 16:40 97 05/16/24 16:30 96 05/16/24 13:14 101 H 05/16/24 13:02 97 05/16/24 12:47 20 05/16/24 12:28 98 F 98 20 119/63 98 Intake and Output 05/16/24 05/16/24 05/17/24 14:59 22:59 06:59 Other: Weight 43.091 kg GENERAL EXAM: Alert, 74-year-old white female, on 3 L/min nasal cannula, fairly comfortable in no apparent distress. HEAD: Normocephalic and atraumatic EYES: Normal reaction of pupils, equal size. NOSE: Clear with pink turbinates. THROAT: No erythema or exudates. NECK: No masses, no JVD. CHEST: No chest wall deformity, subcutaneous emphysema, or crepitus. LUNGS: Equal air entry with markedly diminished lung sounds throughout. No crackles, wheeze, rhonchi or dullness. On 3 L/min nasal cannula. Some conversational dyspnea and pursed lip breathing noted CVS: S1 and S2 normal with no audible murmur, regular rhythm. No extra heart sounds ABDOMEN: No hepatosplenomegaly, active bowel sounds, no guarding or rigidity. SPINE: No scoliosis or deformity SKIN: No rashes CENTRAL NERVOUS SYSTEM: No focal deficits, tone is normal in all 4 extremities. EXTREMITIES: There is no peripheral edema, clubbing, or cyanosis. Peripheral pulses are intact. Right lower extremity active ROM limited by pain. No popping more crepitus. No significant bruising. Results - Laboratory Findings CBC and BMP: 05/17/24 06:00 05/17/24 12:10 PT/INR, D-dimer PT 10.4 sec (10.0-12.5) 05/16/24 12:54 INR 0.9 (<1.2) 05/16/24 12:54 Abnormal lab findings: Abnormal Labs 05/16/24 05/16/24 12:54 12:54 RBC 3.36 L MCV 106.0 H Neutrophils # 7.8 H Potassium 3.1 L Carbon Dioxide 37 H Creatinine 0.47 L Total Protein 6.1 L - Diagnostic Findings Chest x-ray: image reviewed Assessment and Plan Assessment: Mechanical fall, patient reportedly was tangled in her oxygen cord Suspect acute COPD exacerbation Acute on chronic dyspnea, secondary to above Acute on chronic hypoxemic respiratory failure Chronic obstructive pulmonary disease, with an FEV1 34% of predicted, normally maintained on Trelegy maintenance inhaler and albuterol nebs [id number]. Chronic hypoxemic respiratory failure, normally maintained on 2 L/min nasal cannula at home Severe cardiomyopathy, with a baseline ejection fraction of 25 to 30% Coronary artery disease with previous PCI/stenting of the RCA Chronic ongoing tobacco dependence, still smokes 1-2 cigarettes on and off Generalized weakness History of hypertension History of hyperlipidemia Anxiety Plan: Patient's medications, labs, chest x-ray reviewed Continue supplemental oxygen, wean FiO2 to maintain SpO2 greater than 90% Start combination of bronchodilators [id number], Symbicort inhaler, and IV Solu-Medrol. Check Cepheid 4 Plex Cardiology also consulted Fall precautions GI prophylaxis: Pepcid We will continue to follow I have personally seen and examined the patient, performed the documentation and the assessment and plan as written. Number of minutes spent on the visit:20 This is a joint evaluation that was done along with the nurse practitioner. This evaluation was done more than 30 minutes. This is a 74-year-old female patient who is well-known to me as the patient is known to have advanced COPD. The patient is oxygen dependent. The patient is maintained on Trelegy Ellipta 1 puff a day along with DuoNeb nebulized treatments [id number] and albuterol HFA on an as-needed basis. She has significant limitation in overall exercise capacity. This is attributed to her COPD. The same time, the patient continues to smoke on and off few cigarettes a day. The patient came in to the emergency department after she sustained a fall at home. She was in the bathroom and she landed on her left side of the chest. Please refer to the full consultation that was done by the nurse practitioner for further details. In summary, the patient's chest x-ray was reviewed and there is no acute cardiopulmonary process. There is background COPD as expected. Oxygenation remained stable on 3 L of oxygen by nasal cannula with a pulse ox 95%. She continues to have a congested cough. No significant sputum production. The viral screen was negative. The white cell count is at 6.8 with a hemoglobin 10.1. No chest wall deformity. Of importance also is elevation in her LFTs. There has been an acute rise in LFTs and the values are essentially improving. AST is down to 1743 from 2189, ALT is down to 1114 from 1276 and the alkaline phosphatase is down to 495. Bilirubin is not elevated. As such, the patient has an acute hepatic injury or a hepatotoxicity. She has undergone a previous cholecystectomy. No nausea vomiting or abdominal pain. Will obtain ultrasound the right upper quadrant. Will also do a hepatitis screen. None of the m edications that she has been taking is hepatotoxic. Meanwhile, the patient is being given bronchodilators and IV Solu-Medrol regarding a mild component of COPD exacerbation. Oxygen requirements are essentially unchanged for now. She is known to have coronary artery disease and she has undergone previous stenting of the RCA and she is known to have intermediate disease in the LAD and this will be followed up by cardiology. This is a joint evaluation that was done along with the nurse practitioner. This evaluation was done more than 30 minutes. Time with Patient: Greater than 30
[2024-05-17 07:21] LABS: Appearance,Urine Cloudy (Clear); Bacteria,Urine Rare /hpf; Bilirubin,Urine Negative (Negative); Blood,Urine Moderate (Negative); Budding Yeast,Urine Rare /hpf; Color,Urine Yellow; Glucose,Urine (UA) Trace (Negative); Ketones,Urine 1+ (Negative); Leukocyte Esterase,Urine Negative (Negative); Mucus,Urine Rare /hpf; Nitrite,Urine Negative (Negative); Protein,Urine 2+ (Negative); RBC,Urine 4 /hpf (0-5); Squamous Epithelial Cell,Urine 2 /hpf (0-4); WBC,Urine 5 /hpf (0-5)
[2024-05-17] MEDS ORDERED: DEXTROSE 50% SYRINGE 50 ML IVP PRN ×2 (07:23)
[2024-05-17 07:42] LABS: Glucose,Whole Blood 117 mg/dL (70-110)
[2024-05-17] MEDS: INSULIN ASPART (NovoLOG) 100 UNIT/ML VIAL SQ SCH (07:54)
--- NOTE | 2024-05-17 08:21 | P.HPIM ---
History of Present Illness This is a pleasant 74 years old female with past medical history of stage IV COPD and she follow-up with Dr. Young. She is on 2 to 3 L oxygen at home. She presents because of left-sided chest pain radiating to the left arm. P kervin states that this chest pain having few days, she got scared having heart attack and asked her to bring her to the hospital, she states that her pain was bad and severe, nonspecific, nonradiating with no precipitating or relieving factors, she says it was not affected by the cough however when she felt she could hold the area that it hurts at the same of chest pain. She claims that her dyspnea is slightly worse but coughing is chronic. No other GI/ symptoms. No headache dizziness. Patient feels generally weak, she is a walker and she fell last Monday without syncope or hitting her head She states that her brother and sister both this year few months ago and since then she started smoking again, she could not specify how many she smokes, she was counseled to quit. Patient declines nicotine patches. She denies alcohol or illicit drugs Review of Systems Review of systems CONSTITUTIONAL: No fever, no malaise, no fatigue. HEENT: No recent visual problems or hearing problems. Denied any sore throat. CARDIOVASCULAR: No orthopnea, PND, no palpitations, no syncope. PULMONARY: No chest wall tenderness, no hemoptysis. GASTROINTESTINAL: No diarrhea, no nausea, no vomiting, no abdominal pain. Normoactive bowel sounds. NEUROLOGICAL: No headaches, no weakness, no numbness. HEMATOLOGICAL: Denies any bleeding or petechiae. GENITOURINARY: Denies any burning micturition, frequency, or urgency. MUSCULOSKELETAL/RHEUMATOLOGICAL: Denies any joint pain, swelling, or any muscle pain. ENDOCRINE: Denies any polyuria or polydipsia. Past Medical History Past Medical History: Coronary Artery Disease (CAD), COPD, Hyperlipidemia, Osteoarthritis (OA) Additional Past Medical History / Comment(s): SEE DR. NELIDA Bartholomew. PATIENT STATES SHE IS MORE SOB, WHEEZING. USE O2 @ 2L AT NIGHT OR WHEN MORE SOB. Arthritis in bilateral hands. History of Any Multi-Drug Resistant Organisms: None Reported Past Surgical History: Cholecystectomy, Tonsillectomy Past Anesthesia/Blood Transfusion Reactions: No Reported Reaction Past Psychological History: No Psychological Hx Reported Smoking Status: Former smoker Past Alcohol Use History: None Reported Past Drug Use History: None Reported - Past Family History Father Family Medical History: Cancer Additional Family Medical History / Comment(s): Father of lung cancer at th e age of 52 yrs. He was a ex smoker. Mother Family Medical History: Congestive Heart Failure (CHF) Additional Family Medical History / Comment(s): Mother of CHF at the age of 79yrs. Medications and Allergies Home Medications Medication Instructions Recorded Confirmed Type ALPRAZolam [Xanax] 0.5 mg PO BID PRN 11/05/20 05/16/24 History Albuterol Sulfate [Ventolin HFA] 1 - 2 puff INHALATION RT-Q6H PRN 11/05/20 05/16/24 History Fluticasone/Umeclidin/Vilanter 1 puff INHALATION RT-DAILY 11/05/20 05/16/24 History [Trelegy Ellipta 200-62.5-25] Atorvastatin Calcium [Lipitor] 40 mg PO DAILY 09/12/22 05/16/24 History Citalopram Hydrobromide 40 mg PO DAILY 09/12/22 05/16/24 History [Citalopram HBr] Losartan [Cozaar] 25 mg PO DAILY 09/12/22 05/16/24 History Metoprolol Succinate [Metoprolol 12.5 mg PO DAILY 09/12/22 05/16/24 History Succinate ER] Ipratropium-Albuterol Nebulize 3 ml INHALATION RT-QID 05/16/24 05/16/24 History [Duoneb 0.5 mg-3 mg/3 ml Soln] Allergies Allergy/AdvReac Type Severity Reaction Status Date / Time No Known Allergies Allergy Verified 05/16/24 14:30 Physical Exam Vitals: Vital Signs Temp Pulse Resp BP Pulse Ox 05/17/24 07:00 76 18 131/83 98 05/17/24 02:00 81 20 137/94 99 05/16/24 21:34 82 13 131/78 96 05/16/24 18:00 93 24 134/67 98 05/16/24 17:05 88 26 H 128/70 96 05/16/24 16:40 97 05/16/24 16:30 96 05/16/24 13:14 101 H 05/16/24 13:02 97 05/16/24 12:47 20 05/16/24 12:28 98 F 98 20 119/63 98 -GENERAL: The patient is alert and oriented x3, not in any acute distress. Well developed, well nourished. Thin built HEENT: Pupils are round and equally reacting to light. EOMI. No scleral icterus. No conjunctival pallor. Normocephalic, atraumatic. No pharyngeal erythema. No thyromegaly. CARDIOVASCULAR: S1 and S2 present. No murmurs, rubs, or gallops. -PULMONARY: Chest is clear to auscultation, no wheezing , no crackles. Mild expiratory wheezing. Mild tachypnea ABDOMEN: Soft, nontender, nondistended, normoactive bowel sounds. No palpable organomegaly. MUSCULOSKELETAL: No joint swelling or deformity. EXTREMITIES: No cyanosis, clubbing, or pedal edema. NEUROLOGICAL: Gross neurological examination did not reveal any focal deficits. SKIN: No rashes. no petechiae. Results CBC & Chem 7: 05/16/24 12:54 05/16/24 12:54 Labs: Abnormal Lab Results - Last 24 Hours (Table) 05/16/24 05/16/24 05/17/24 Range/Units 12:54 12:54 07:02 RBC 3.36 L (3.80-5.40) m/uL MCV 106.0 H (80.0-100.0) fL Neutrophils # 7.8 H (1.3-7.7) k/uL Potassium 3.1 L (3.5-5.1) mmol/L Carbon Dioxide 37 H (22-30) mmol/L Creatinine 0.47 L (0.52-1.04) mg/dL POC Glucose (mg/dL) (70-110) mg/dL Total Protein 6.1 L (6.3-8.2) g/dL Urine Appearance Cloudy H (Clear) Urine Protein 2+ H (Negative) Urine Glucose (UA) Trace H (Negative) Urine Ketones 1+ H (Negative) Urine Blood Moderate H (Negative) Urine Bacteria Rare H (None) /hpf Urine Mucus Rare H (None) /hpf Urine Yeast (Budding) Rare H (None) /hpf 05/17/24 Range/Units 07:40 RBC (3.80-5.40) m/uL MCV (80.0-100.0) fL Neutrophils # (1.3-7.7) k/uL Potassium (3.5-5.1) mmol/L Carbon Dioxide (22-30) mmol/L Creatinine (0.52-1.04) mg/dL POC Glucose (mg/dL) 117 H (70-110) mg/dL Total Protein (6.3-8.2) g/dL Urine Appearance (Clear) Urine Protein (Negative) Urine Glucose (UA) (Negative) Urine Ketones (Negative) Urine Blood (Negative) Urine Bacteria (None) /hpf Urine Mucus (None) /hpf Urine Yeast (Budding) (None) /hpf Assessment and Plan Assessment: Left-sided chest pain, rule out coronary artery disease Stage IV advanced COPD, with possible mild acute exacerbation Generalized weakness Fall at home Chronic hypoxic respiratory failure malnutrition Most likely related to her advanced severe COPD Plan: Continue with Solu-Medrol 60 mg Continue with bronchodilator Pulmonary team consult Tree Wrapper evaluation is requested for chest pain She is on normal saline Nutrition consult Will ask for PT/OT evaluation Labs and medication were reviewed.. Continue same treatment. Continue with symptomatic treatment. Resume home medication. Monitor labs and vitals. DVT and GI prophylaxis. Further recommendations as per clinical course of the patient DVT prophylaxis: Subcutaneous heparin GI Prophylaxis: Pepcid Prognosis is guarded
[2024-05-17] MEDS: ATORVASTATIN 40 MG TAB PO SCH (09:35)
[2024-05-17] MEDS: LOSARTAN 25 MG TAB PO SCH (09:35)
[2024-05-17] MEDS: CITALOPRAM HYDROBROMIDE 20 MG TAB PO SCH (09:36)
[2024-05-17] MEDS: METOPROLOL SUCCINATE (ER) 25 MG TAB.ER.24H PO SCH (09:37)
[2024-05-17] MEDS: FAMOTIDINE 20 MG/2 ML VIAL IV SCH (09:37)
[2024-05-17] MEDS: HEPARIN SODIUM,PORCINE 5,000 UNIT/ML 1 ML VIAL SQ SCH (09:37)
[2024-05-17 10:44] LABS: Phosphorus 4.2 mg/dL (2.4-5.1)
[2024-05-17 10:48] LABS: HCT 32.5 % (37.2-46.3); HGB 10.1 g/dL (12.0-15.0); MCHC 31.1 g/dL (32.0-37.0); MCV 109.4 FL (80.0-97.0); Mean Platelet Volume 11.5 FL (9.5-12.2); NRBC Per 100 WBC 0 X 10*3/uL (0.00-0.01); Platelet Count 179 X 10*3/uL (140-440); RBC 2.97 X 10*6/uL (4.10-5.20); RDW 13.3 % (11.5-14.5)
[2024-05-17 10:59] LABS: Blood Urea Nitrogen 14.6 mg/dL (9.0-27.0); Carbon Dioxide 32.1 mmol/L (21.6-31.8); Chloride 97 mmol/L (96-109); Glucose 125 mg/dL (70-110); Sodium 139 mmol/L (135-145)
[2024-05-17 11:00] LABS: ALT 1276 U/L (8-44); AST 2189 U/L (13-35); Albumin 3.5 g/dL (3.8-4.9); Albumin/Globulin Ratio 1.67 Ratio (1.60-3.17); Alkaline Phosphatase 619 U/L (41-126); Calcium 8.5 mg/dL (8.7-10.3); Globulin 2.1 g/dL (1.6-3.3); Total Bilirubin 0.4 mg/dL (0.3-1.2); Total Protein 5.6 g/dL (6.2-8.2)
[2024-05-17 11:30] LABS: Basophils # (A) 0.01 X 10*3/uL (0.00-0.10); Basophils % (A) 0.1 %; Eosinophils # (A) 0 X 10*3/uL (0.04-0.35); Eosinophils % (A) 0 %; Lymphocytes # (A) 0.37 X 10*3/uL (0.90-5.00); Lymphocytes % (A) 5.4 %; Macrocytosis (M) 2+; Monocytes # (A) 0.15 X 10*3/uL (0.20-1.00); Monocytes % (A) 2.2 %; Neutrophils # (A) 6.23 X 10*3/uL (1.80-7.70); Neutrophils % (A) 91.7 %
[2024-05-17 11:53] LABS: Glucose,Whole Blood 123 mg/dL (70-110)
[2024-05-17] MEDS: SYMBICORT 160-4.5 MCG INHALER INHALATION SCH (12:52)
[2024-05-17 12:53] LABS: African American GFR (CKD) >90 (>60 ml/min/1.73 sqM); Albumin 3.4 g/dL (3.5-5.0); Albumin/Globulin Ratio 1.4; Alkaline Phosphatase 495 U/L (38-126); Anion Gap -2 mmol/L; Bilirubin,Unconjugated 0.4 mg/dL (0.0-1.1); Blood Urea Nitrogen 19 mg/dL (7-17); Calcium 8.2 mg/dL (8.4-10.2); Carbon Dioxide 35 mmol/L (22-30); Chloride 102 mmol/L (98-107); Globulin 2.4 g/dL; Glucose 126 mg/dL (74-99); Non-African American GFR(CKD) >90 (>60 ml/min/1.73 sqM); Potassium 3.5 mmol/L (3.5-5.1); Sodium 135 mmol/L (137-145); Total Bilirubin 0.6 mg/dL (0.2-1.3); Total Protein 5.8 g/dL (6.3-8.2)
[2024-05-17] MEDS: KETOROLAC 15 MG/ML 1 ML VIAL IVP STA (13:22)
[2024-05-17 13:39] LABS: ALT 1114 U/L (4-34); AST 1743 U/L (14-36)
--- NOTE | 2024-05-17 14:15 | P.CRDCN ---
History of Present Illness Consult date: 05/17/24 Consult reason: chest pain History of present illness: This is a 74-year-old female patient of Dr. Cerda with past medical history of coronary artery disease with prior stenting of the RCA and known intermediate disease involving the LAD, hypertension, dyslipidemia, tobacco use and dependence, COPD, chronic hypoxic respiratory failure on home O2 at 2 L nasal cannula. We have been asked to evaluate the patient for chest pain. Patient had a fall at home after she got tangled in her oxygen tubing and fell, landing on her left side. Patient states that she fell on Monday could not walk and her leg was sore. Couple days later she started developing severe pain in her chest on the left side that is tender to touch. She states in general she does not feel well. She states she has not had no strength since Monday and does not know why. She also fell a second time when the walker fell on top of her. She denies any nausea vomiting or abdominal pain. She states her breathing is okay. Blood pressure 131/83, heart rate 76, pulse ox 98% on 3 L nasal cannula. Patient is seen today in the emergency center waiting for a bed on the cardiac stepdown unit. Pulmonary medicine is also on consult. EKG: Sinus rhythm Chest x-ray: No acute process. COPD Bilateral hip pelvis x-rays no evidence of acute process. Mild hip osteoarthrosis. Laboratory studies: WBC 10, hemoglobin 9.4. Sodium 140, potassium 3.1, BUN 16 creatinine 0.47. Troponin negative x 3. proBNP 365. Liver function test are normal. Magnesium 1.8. Influenza A, influenza B, RSV, COVID-19 not detected. Home cardiac medications: Atorvastatin 40 mg daily, losartan 25 mg daily, metoprolol succinate 12.5 mg daily. Cardiac catheterization 09/15/2022 revealed intermediate disease in the RCA and LAD, IFR of the RCA was ischemic status post PCI of the RCA. Echocardiogram performed in the office on 02/08/2024 revealed normal EF, mild to moderate AR Dobutamine Cardiolite stress test performed in the office 08/12/2022 revealed normal EKG and response to dobutamine. Abnormal myocardial perfusion imaging with evidence of reversible defect of moderate size and mild intensity involving the inferior septal segment of the left ventricle. Normal left ventricular systolic function. Review Of Systems: At the time of my exam: CONSTITUTIONAL: Denies fever or chills. HEENT: Denies blurred vision, vision changes, or eye pain. Denies hemoptysis CARDIOVASCULAR: Denies chest pain. Denies orthopnea. Denies PND. Denies palpitations RESPIRATORY: Denies shortness of breath. GASTROINTESTINAL: Denies abdominal pain. Denies nausea or vomiting. HEMATOLOGIC: Denies bleeding disorders. GENITOURINARY: Denies any blood in urine. SKIN: Denies puritis. Denies rash. Physical examination: Gen: This is 74-year-old female appears to be in no acute distress VS: reviewed HEENT: Head is atraumatic, normocephalic. Pupils equal, round. Sclerae is anicteric. NECK: Supple. No JVD. LUNGS: Diminished breath sounds bilaterally. No intercostal retractions. HEART: Regular rate and rhythm. No murmur. + Chest wall tenderness ABDOMEN: Soft No tenderness. EXTREMITIES: No pedal edema. No calf tenderness. NEUROLOGICAL: Patient is awake, alert and oriented x3. Assessment: Mechanical fall Atypical chest pain, acute coronary syndrome ruled out secondary to trauma to the chest COPD exacerbation Acute on chronic hypoxic respiratory failure History of coronary artery disease with prior stenting of the RCA and known intermediate disease in the LAD Hypertension Dyslipidemia Tobacco use and dependence Plan: Resume patient's home cardiac medications No need to repeat echocardiogram as this was performed in January May consider a monitor in the office at her next visit No further cardiac workup at this time Cardiology will sign off this case and follow on an as-needed basis. Please r econsult for any new concerns. Patient may follow-up with Dr. Cerda in the office in one to 2 weeks. Thank you kindly for this consultation. Nurse practitioner note has been reviewed, I agree with documented findings and plan of care. Patient was seen and examined. Past Medical History Past Medical History: Coronary Artery Disease (CAD), COPD, Hyperlipidemia, Osteoarthritis (OA) Additional Past Medical History / Comment(s): SEE DR. CERDA H & P. PATIENT STATES SHE IS MORE SOB, WHEEZING. USE O2 @ 2L AT NIGHT OR WHEN MORE SOB. Arthritis in bilateral hands. History of Any Multi-Drug Resistant Organisms: None Reported Past Surgical History: Cholecystectomy, Tonsillectomy Past Anesthesia/Blood Transfusion Reactions: No Reported Reaction Past Psychological History: No Psychological Hx Reported Smoking Status: Former smoker Past Alcohol Use History: None Reported Past Drug Use History: None Reported - Past Family History Father Family Medical History: Cancer Additional Family Medical History / Comment(s): Father of lung cancer at the age of 52 yrs. He was a ex smoker. Mother Family Medical History: Congestive Heart Failure (CHF) Additional Family Medical History / Comment(s): Mother of CHF at the age of 79yrs. Medications and Allergies Home Medications Medication Instructions Recorded Confirmed Type ALPRAZolam [Xanax] 0.5 mg PO BID PRN 11/05/20 05/16/24 History Albuterol Sulfate [Ventolin HFA] 1 - 2 puff INHALATION RT-Q6H PRN 11/05/2004/30 History Fluticasone/Umeclidin/Vilanter 1 puff INHALATION RT-DAILY 11/05/20 05/16/24 History [Trelegy Ellipta 200-62.5-25] Atorvastatin Calcium [Lipitor] 40 mg PO DAILY 09/12/22 05/16/24 History Citalopram Hydrobromide 40 mg PO DAILY 09/12/22 05/16/24 History [Citalopram HBr] Losartan [Cozaar] 25 mg PO DAILY 09/12/22 05/16/24 History Metoprolol Succinate [Metoprolol 12.5 mg PO DAILY 09/12/22 05/16/24 History Succinate ER] Ipratropium-Albuterol Nebulize 3 ml INHALATION RT-QID 05/16/24 05/16/24 History [Duoneb 0.5 mg-3 mg/3 ml Soln] Allergies Allergy/AdvReac Type Severity Reaction Status Date / Time No Known Allergies Allergy Verified 05/16/24 14:30 Physical Exam Vitals: Vital Signs Temp Pulse Resp BP Pulse Ox 05/17/24 07:00 76 18 131/83 98 05/17/24 02:00 81 20 137/94 99 05/16/24 21:34 82 13 131/78 96 05/16/24 18:00 93 24 134/67 98 05/16/24 17:05 88 26 H 128/70 96 05/16/24 16:40 97 05/16/24 16:30 96 05/16/24 13:14 101 H 05/16/24 13:02 97 05/16/24 12:47 20 05/16/24 12:28 98 F 98 20 119/63 98 Results 05/17/24 06:00 05/17/24 12:10 Cardiac Enzymes 05/16/24 05/16/24 05/16/24 Range/Units 12:54 12:54 17:15 AST 23 (14-36) U/L Troponin I <0.012 <0.012 (0.000-0.034) ng/mL 05/16/24 Range/Units 20:24 AST (14-36) U/L Troponin I <0.012 (0.000-0.034) ng/mL Coagulation 05/16/24 Range/Units 12:54 PT 10.4 (10.0-12.5) sec APTT 26.7 (22.0-30.0) sec CBC 05/16/24 Range/Units 12:54 WBC 10.1 (3.8-10.6) k/uL RBC 3.36 L (3.80-5.40) m/uL Hgb 11.4 (11.4-16.0) gm/dL Hct 35.6 (34.0-46.0) % Plt Count 180 (150-450) k/uL Comprehensive Metabolic Panel 05/16/24 Range/Units 12:54 Sodium 140 (137-145) mmol/L Potassium 3.1 L (3.5-5.1) mmol/L Chloride 102 (98-107) mmol/L Carbon Dioxide 37 H (22-30) mmol/L BUN 16 (7-17) mg/dL Creatinine 0.47 L (0.52-1.04) mg/dL Glucose 95 (74-99) mg/dL Calcium 8.6 (8.4-10.2) mg/dL AST 23 (14-36) U/L ALT 19 (4-34) U/L Alkaline Phosphatase 75 (38-126) U/L Total Protein 6.1 L (6.3-8.2) g/dL Albumin 3.5 (3.5-5.0) g/dL Current Medications Generic Name Dose Route Start Last Admin Trade Name Freq PRN Reason Stop Dose Admin Albuterol Sulfate 2.5 mg 05/16/24 20:00 05/17/24 01:56 Albuterol Nebulized 2.5 Mg/3 Ml INHALATION Not Given RT-QID [facility] Alprazolam 0.5 mg 05/17/24 07:22 Alprazolam 0.5 Mg Tab PO BID PRN Anxiety Atorvastatin Calcium 40 mg 05/17/24 09:00 Atorvastatin 40 Mg Tab PO DAILY [facility] Budesonide/Formoterol Fumarate 2 puff 05/17/24 08:00 Symbicort 160-4.5 Mcg Inhaler INHALATION RT-BID [facility] Citalopram Hydrobromide 40 mg 05/17/24 09:00 Citalopram Hydrobromide 20 Mg Tab PO DAILY [facility] Dextrose/Water 25 ml 05/17/24 07:23 Dextrose 50% Syringe 50 Ml IVP PER PROTOCOL PRN Hypoglycemia Protocol Dextrose/Water 50 ml 05/17/24 07:23 Dextrose 50% Syringe 50 Ml IVP PER PROTOCOL PRN Hypoglycemia Protocol Famotidine 20 mg 05/17/24 09:00 Famotidine 20 Mg/2 Ml Vial IV Q12HR [facility] Heparin Sodium (Porcine) 5,000 unit 05/17/24 09:00 Heparin Sodium,Porcine 5,000 Unit/Ml 1 Ml Vial SQ Q12HR [facility] Sodium Chloride 1,000 mls @ 75 mls/hr 05/16/24 16:30 05/17/24 02:26 Saline 0.9% IV 75 mls/hr .[id number] [facility] Administration Insulin Aspart 0 unit 05/17/24 07:30 05/17/24 07:54 Insulin Aspart (Novolog) 100 Unit/Ml Vial SQ Not Given ACHS [facility] Protocol Losartan Potassium 25 mg 05/17/24 09:00 Losartan 25 Mg Tab PO DAILY [facility] Methylprednisolone Sodium Succinate 60 mg 05/17/24 01:00 05/17/24 06:52 Methylprednisolone Sod Succi 125 Mg/2 Ml Vial IV 60 mg Q6HR [facility] Administration Metoprolol Succinate 12.5 mg 05/17/24 09:00 Metoprolol Succinate (Er) 25 Mg Tab.Er.24h PO DAILY [facility] Morphine Sulfate 4 mg 05/16/24 16:22 05/16/24 18:42 Morphine Sulfate 4 Mg/Ml Syringe IV 4 mg Q4HR PRN Administration Severe Pain (Scale 7 to 10) Naloxone HCl 0.2 mg 05/16/24 16:17 Naloxone 0.4 Mg/Ml 1 Ml Vial IV Q2M PRN Opioid Reversal Ondansetron HCl 4 mg 05/16/24 16:22 Ondansetron 4 Mg/2 Ml Vial IVP Q8HR PRN Nausea And Vomiting 05/16/24 12:54 05/16/24 12:54
[2024-05-17 14:27] LABS: Glucose,Whole Blood 203 mg/dL (70-110)
[2024-05-17 15:02] VITALS: BMI 17.9
[2024-05-17] MEDS: ALPRAZolam 0.5 MG TAB PO PRN (17:16)
[2024-05-17 17:32] LABS: Glucose,Whole Blood 139 mg/dL (70-110)
[2024-05-17 19:52] LABS: Glucose,Whole Blood 186 mg/dL (70-110)
[2024-05-18 05:40] LABS: Glucose,Whole Blood 148 mg/dL (70-110)
[2024-05-18 12:02] LABS: ALT 797 U/L (8-44); AST 666 U/L (13-35); Albumin 3.3 g/dL (3.8-4.9); Albumin/Globulin Ratio 1.74 Ratio (1.60-3.17); Alkaline Phosphatase 431 U/L (41-126); BUN/Creat Ratio 43.75 Ratio (12.00-20.00); Blood Urea Nitrogen 17.5 mg/dL (9.0-27.0); Calcium 8.5 mg/dL (8.7-10.3); Chloride 98 mmol/L (96-109); Globulin 1.9 g/dL (1.6-3.3); Glucose 133 mg/dL (70-110); Potassium 4.3 mmol/L (3.5-5.5); Sodium 137 mmol/L (135-145); Total Bilirubin 0.2 mg/dL (0.3-1.2); Total Protein 5.2 g/dL (6.2-8.2)
[2024-05-18 12:25] LABS: Glucose,Whole Blood 132 mg/dL (70-110)
--- NOTE | 2024-05-18 14:08 | US ---
EXAMINATION TYPE: US liver DATE OF EXAM: 05/18/2024 Exam done portable COMPARISON: None CLINICAL INDICATION: Female, 74 years old with history of elevated liver enzymes; TECHNIQUE: Grayscale and color Doppler imaging of the right upper quadrant was performed. FINDINGS: EXAM MEASUREMENTS: Liver Length: 14.3 cm CBD: 0.6 cm Right Kidney: 10.5 x 5.1 x 4.4 cm Pancreas: visualized portions wnl, limited by overlying midline bowel gas Liver: wnl Gallbladder: surgically absent Evidence for sonographic Caraballo's sign: no CBD: wnl Right Kidney: 1.9cm hypoechoic area medial mid pole IMPRESSION: No evidence for acute process. [facility] Regis Fajarod, , 05/18/2024 2:05 PM
--- NOTE | 2024-05-18 16:42 | P.PN ---
Subjective Progress Note Date: 05/18/24 05/18/2024, the patient is less short of breath compared to yesterday. She remains on oxygen at 3 L/min nasal cannula. No significant chest pain. No cough or sputum production. No altered mentation. Ultrasound of the liver showed no acute process. LFTs are essentially improving. Sodium is at 137, b icarb is at 32, BUN 17 with a creatinine of 0.4. AST that is down to 666, ALT is down to 797, alkaline phosphatase down to 431. Objective - Vital Signs Vital signs: Vital Signs Temp 98.2 F 05/18/24 14:03 Pulse 80 05/18/24 15:28 Resp 17 05/18/24 14:03 BP 113/46 05/18/24 14:03 Pulse Ox 97 05/18/24 14:03 FiO2 Intake & Output 05/17/24 05/18/24 05/18/24 18:59 06:59 18:59 Intake Total 474 478 300 Output Total 0 Balance 474 478 300 Weight 43.091 kg Intake: Oral 474 478 300 Output: Urine 0 Other: Voiding Method Toilet Toilet Toilet # Voids 1 1 0 - Exam GENERAL EXAM: Alert, 74-year-old white female, on 3 L/min nasal cannula, fairly comfortable in no apparent distress. HEAD: Normocephalic and atraumatic EYES: Normal reaction of pupils, equal size. NOSE: Clear with pink turbinates. THROAT: No erythema or exudates. NECK: No masses, no JVD. CHEST: No chest wall deformity, subcutaneous emphysema, or crepitus. LUNGS: Equal air entry with markedly diminished lung sounds throughout. No crackles, wheeze, rhonchi or dullness. On 3 L/min nasal cannula. Some conversational dyspnea and pursed lip breathing noted CVS: S1 and S2 normal with no audible murmur, regular rhythm. No extra heart sounds ABDOMEN: No hepatosplenomegaly, active bowel sounds, no guarding or rigidity. SPINE: No scoliosis or deformity SKIN: No rashes CENTRAL NERVOUS SYSTEM: No focal deficits, tone is normal in all 4 extremities. EXTREMITIES: There is no peripheral edema, clubbing, or cyanosis. Peripheral pulses are intact. Right lower extremity active ROM limited by pain. No popping more crepitus. No significant bruising. - Labs CBC & Chem 7: 05/17/24 06:00 05/18/24 05:38 Labs: Abnormal Lab Results - Last 24 Hours (Table) 05/17/24 05/17/24 05/18/24 Range/Units 17:30 19:50 05:38 Carbon Dioxide 32.0 H (21.6-31.8) mmol/L Creatinine 0.4 L (0.6-1.5) mg/dL BUN/Creatinine Ratio 43.75 H (12.00-20.00) Ratio Glucose 133 H (70-110) mg/dL POC Glucose (mg/dL) 139 H 186 H (70-110) mg/dL Calcium 8.5 L (8.7-10.3) mg/dL Total Bilirubin 0.2 L (0.3-1.2) mg/dL AST 666 H (13-35) U/L ALT 797 H (8-44) U/L Alkaline Phosphatase 431 H (41-126) U/L Total Protein 5.2 L (6.2-8.2) g/dL Albumin 3.3 L (3.8-4.9) g/dL 05/18/24 05/18/24 Range/Units 05:39 12:23 Carbon Dioxide (21.6-31.8) mmol/L Creatinine (0.6-1.5) mg/dL BUN/Creatinine Ratio (12.00-20.00) Ratio Glucose (70-110) mg/dL POC Glucose (mg/dL) 148 H 132 H (70-110) mg/dL Calcium (8.7-10.3) mg/dL Total Bilirubin (0.3-1.2) mg/dL AST (13-35) U/L ALT (8-44) U/L Alkaline Phosphatase (41-126) U/L Total Protein (6.2-8.2) g/dL Albumin (3.8-4.9) g/dL Assessment and Plan Assessment: Mechanical fall, patient reportedly was tangled in her oxygen cord Suspect acute COPD exacerbation Acute on chronic dyspnea, secondary to above Acute on chronic hypoxemic respiratory failure Chronic obstructive pulmonary disease, with an FEV1 34% of predicted, normally maintained on Trelegy maintenance inhaler and albuterol nebs [id number]. Chronic hypoxemic respiratory failure, normally maintained on 2 L/min nasal cannula at home Severe cardiomyopathy, with a baseline ejection fraction of 25 to 30% Coronary artery disease with previous PCI/stenting of the RCA Chronic ongoing tobacco dependence, still smokes 1-2 cigarettes on and off Generalized weakness History of hypertension History of hyperlipidemia Anxiety Plan: Continue same treatment Monitor LFTs Ultrasound the liver was essentially within normal limits and LFTs are improving Will start prednisone burst taper as of tomorrow. Clinically improving.
--- NOTE | 2024-05-18 16:47 | P.PN ---
Subjective This is a pleasant 74 years old female with past medical history of stage IV COPD and she follow-up with Dr. Young. She is on 2 to 3 L oxygen at home. She presents because of left-sided chest pain radiating to the left arm. Patient states that this chest pain having few days, she got scared having heart attack and asked her to bring her to the hospital, she states that her pain was bad and severe, nonspecific, nonradiating with no precipitating or relieving factors, she says it was not affected by the cough however when she felt she could hold the area that it hurts at the same of chest pain. She claims that her dyspnea is slightly worse but coughing is chronic. No other GI/ symptoms. No headache dizziness. Patient feels generally weak, she is a walker and she fell last Monday without syncope or hitting her head She states that her brother and sister both this year few months ago and since then she started smoking again, she could not specify how many she smokes, she was counseled to quit. Patient declines nicotine patches. She denies alcohol or illicit drugs 05/18 Patient still mildly tachypneic and have difficulty breathing Her left-sided chest pain most likely musculoskeletal in nature She is complaining from pain in her right thigh today and we are going to check ultrasound to rule out DVT She is still on oxygen. Has mild headache. Liver enzymes were significantly elevated more than 1000 came down today to less than 1000 with AST 666 and ALT 797. Liver ultrasound reviewed was unremarkable we will keep monitoring Review of systems CONSTITUTIONAL: No fever, no malaise, no fatigue. HEENT: No recent visual problems or hearing problems. Denied any sore throat.al pain. Normoactive bowel sounds. NEUROLOGICAL: No headaches, no weakness, no numbness. HEMATOLOGICAL: Denies any bleeding or petechiae. GENITOURINARY: Denies any burning micturition, frequency, or urgency. MUSCULOSKELETAL/RHEUMATOLOGICAL: Denies any joint pain, swelling, or any muscle pain. ENDOCRINE: Denies any polyuria or polydipsia. Active Medications Generic Name Dose Route Start Last Admin Trade Name Freq PRN Reason Stop Dose Admin Albuterol Sulfate 2.5 mg 05/16/24 20:00 05/18/24 15:22 Albuterol Nebulized 2.5 Mg/3 Ml INHALATION 2.5 mg RT-QID MICHOACANO Administration Alprazolam 0.5 mg 05/17/24 07:22 05/18/24 08:57 Alprazolam 0.5 Mg Tab PO 0.5 mg BID PRN Administration Anxiety Atorvastatin Calcium 40 mg 05/17/24 09:00 05/18/24 08:48 Atorvastatin 40 Mg Tab PO 40 mg DAILY MICHOACANO Administration Budesonide/Formoterol Fumarate 2 puff 05/17/24 08:00 05/18/24 08:03 Symbicort 160-4.5 Mcg Inhaler INHALATION 2 puff RT-BID MICHOACANO Administration Citalopram Hydrobromide 40 mg 05/17/24 09:00 05/18/24 08:48 Citalopram Hydrobromide 20 Mg Tab PO 40 mg DAILY MICHOACANO Administration Dextrose/Water 25 ml 05/17/24 07:23 Dextrose 50% Syringe 50 Ml IVP PER PROTOCOL PRN Hypoglycemia Protocol Dextrose/Water 50 ml 05/17/24 07:23 Dextrose 50% Syringe 50 Ml IVP PER PROTOCOL PRN Hypoglycemia Protocol Famotidine 20 mg 05/17/24 09:00 05/18/24 08:48 Famotidine 20 Mg/2 Ml Vial IV 20 mg Q12HR MICHOACANO Administration Heparin Sodium (Porcine) 5,000 unit 05/17/24 09:00 05/18/24 08:48 Heparin Sodium,Porcine 5,000 Unit/Ml 1 Ml Vial SQ 5,000 unit Q12HR MICHOACANO Administration Sodium Chloride 1,000 mls @ 75 mls/hr 05/16/24 16:30 05/18/24 13:02 Saline 0.9% IV 75 mls/hr .[id number] MICHOACANO Administration Insulin Aspart 0 unit 05/17/24 07:30 05/18/24 12:24 Insulin Aspart (Novolog) 100 Unit/Ml Vial SQ Not Given ACHS MICHOACANO Protocol Losartan Potassium 25 mg 05/17/24 09:00 05/18/24 08:48 Losartan 25 Mg Tab PO 25 mg DAILY MICHOACANO Administration Methylprednisolone Sodium Succinate 60 mg 05/17/24 01:00 05/18/24 13:01 Methylprednisolone Sod Succi 125 Mg/2 Ml Vial IV 60 mg Q6HR MICHOACANO Administration Metoprolol Succinate 12.5 mg 05/17/24 09:00 05/18/24 08:49 Metoprolol Succinate (Er) 25 Mg Tab.Er.24h PO 12.5 mg DAILY MICHOACANO Administration Morphine Sulfate 4 mg 05/16/24 16:22 05/18/24 06:17 Morphine Sulfate 4 Mg/Ml Syringe IV 4 mg Q4HR PRN Administration Severe Pain (Scale 7 to 10) Naloxone HCl 0.2 mg 05/16/24 16:17 Naloxone 0.4 Mg/Ml 1 Ml Vial IV Q2M PRN Opioid Reversal Ondansetron HCl 4 mg 05/16/24 16:22 Ondansetron 4 Mg/2 Ml Vial IVP Q8HR PRN Nausea And Vomiting Objective - Vital Signs Vital signs: Vital Signs Temp 98.2 F 05/18/24 14:03 Pulse 80 05/18/24 15:28 Resp 17 05/18/24 14:03 BP 113/46 05/18/24 14:03 Pulse Ox 97 05/18/24 14:03 FiO2 Intake & Output 05/17/24 05/18/24 05/18/24 18:59 06:59 18:59 Intake Total 474 478 300 Output Total 0 Balance 474 478 300 Weight 43.091 kg Intake: Oral 474 478 300 Output: Urine 0 Other: Voiding Method Toilet Toilet Toilet # Voids 1 1 0 - Exam GENERAL: The patient is alert and oriented x3, not in any acute distress. Well developed, well nourished. HEENT: Pupils are round and equally reacting to light. EOMI. No scleral icterus. No conjunctival pallor. Normocephalic, atraumatic. No pharyngeal erythema. No thyromegaly. CARDIOVASCULAR: S1 and S2 present. No murmurs, rubs, or gallops. PULMONARY: Chest is clear to auscultation, no wheezing , no crackles. ABDOMEN: Soft, nontender, nondistended, normoactive bowel sounds. No palpable organomegaly. MUSCULOSKELETAL: No joint swelling or deformity. EXTREMITIES: No cyanosis, clubbing, or pedal edema. NEUROLOGICAL: Gross neurological examination did not reveal any focal deficits. SKIN: No rashes. no petechiae. - Labs CBC & Chem 7: 05/17/24 06:00 05/18/24 05:38 Labs: Abnormal Lab Results - Last 24 Hours (Table) 05/17/24 05/17/24 05/18/24 Range/Units 17:30 19:50 05:38 Carbon Dioxide 32.0 H (21.6-31.8) mmol/L Creatinine 0.4 L (0.6-1.5) mg/dL BUN/Creatinine Ratio 43.75 H (12.00-20.00) Ratio Glucose 133 H (70-110) mg/dL POC Glucose (mg/dL) 139 H 186 H (70-110) mg/dL Calcium 8.5 L (8.7-10.3) mg/dL Total Bilirubin 0.2 L (0.3-1.2) mg/dL AST 666 H (13-35) U/L ALT 797 H (8-44) U/L Alkaline Phosphatase 431 H (41-126) U/L Total Protein 5.2 L (6.2-8.2) g/dL Albumin 3.3 L (3.8-4.9) g/dL 05/18/24 05/18/24 Range/Units 05:39 12:23 Carbon Dioxide (21.6-31.8) mmol/L Creatinine (0.6-1.5) mg/dL BUN/Creatinine Ratio (12.00-20.00) Ratio Glucose (70-110) mg/dL POC Glucose (mg/dL) 148 H 132 H (70-110) mg/dL Calcium (8.7-10.3) mg/dL Total Bilirubin (0.3-1.2) mg/dL AST (13-35) U/L ALT (8-44) U/L Alkaline Phosphatase (41-126) U/L Total Protein (6.2-8.2) g/dL Albumin (3.8-4.9) g/dL Assessment and Plan Assessment: Left-sided chest pain, rule out coronary artery disease Stage IV advanced COPD, with possible mild acute exacerbation Generalized weakness Fall at home Transaminitis Chronic hypoxic respiratory failure malnutrition Most likely related to her advanced severe COPD Plan: Continue with Solu-Medrol 60 mg Continue with bronchodilator Pulmonary team consult Room Service Supervisor evaluation is requested for chest pain Keep monitoring liver enzymes. Liver ultrasound was reviewed She is on normal saline Nutrition consult Will ask for PT/OT evaluation Labs and medication were reviewed.. Continue same treatment. Continue with symptomatic treatment. Resume home medication. Monitor labs and vitals. DVT and GI prophylaxis. Further recommendations as per clinical course of the patient DVT prophylaxis: Subcutaneous heparin GI Prophylaxis: Pepcid Prognosis is guarded
[2024-05-18 17:10] LABS: Glucose,Whole Blood 123 mg/dL (70-110)
--- NOTE | 2024-05-18 18:15 | US ---
EXAMINATION TYPE: US venous doppler duplex LE RT DATE OF EXAM: 05/18/2024 6:01 PM COMPARISON: NONE CLINICAL INDICATION: Female, 74 years old with history of thigh pain; right thigh pain TECHNIQUE: The lower extremity deep venous system is examined utilizing real time linear array sonog philippe with graded compression, color doppler sonography, and spectral doppler. SIDE PERFORMED: right FINDINGS: VESSELS IMAGED: Common Femoral Vein Deep Femoral Vein Greater Saphenous Vein * Femoral Vein Popliteal Vein Small Saphenous Vein * Proximal Calf Veins (* superficial vessels) Right Leg: No evidence of DVT as visualized Grayscale, color doppler, spectral doppler imaging performed of the deep veins of the lower extremiti es. IMPRESSION: No evidence of deep vein thrombosis of the right lower extremity. [facility], , 05/18/2024 6:13 PM
[2024-05-18 19:43] LABS: Glucose,Whole Blood 146 mg/dL (70-110)
[2024-05-19 05:35] LABS: Glucose,Whole Blood 140 mg/dL (70-110)
[2024-05-19] MEDS: FAMOTIDINE 20 MG TAB PO SCH (09:30)
[2024-05-19 09:49] LABS: Basophils # (A) 0 X 10*3/uL (0.00-0.10); Basophils % (A) 0 %; Eosinophils # (A) 0 X 10*3/uL (0.04-0.35); Eosinophils % (A) 0 %; HCT 31.5 % (37.2-46.3); HGB 9.9 g/dL (12.0-15.0); Lymphocytes # (A) 0.42 X 10*3/uL (0.90-5.00); Lymphocytes % (A) 4.6 %; MCH 34.3 pg (27.0-32.0); MCHC 31.4 g/dL (32.0-37.0); Mean Platelet Volume 11.6 FL (9.5-12.2); Monocytes # (A) 0.42 X 10*3/uL (0.20-1.00); Monocytes % (A) 4.6 %; NRBC Per 100 WBC 0 X 10*3/uL (0.00-0.01); Neutrophils # (A) 8.28 X 10*3/uL (1.80-7.70); Neutrophils % (A) 90.3 %; Platelet Count 226 X 10*3/uL (140-440); RBC 2.89 X 10*6/uL (4.10-5.20); RDW 12.8 % (11.5-14.5); WBC 9.17 X 10*3/uL (4.50-10.00)
[2024-05-19 11:17] LABS: ALT 633 U/L (8-44); AST 238 U/L (13-35); Albumin 3.6 g/dL (3.8-4.9); Albumin/Globulin Ratio 1.57 Ratio (1.60-3.17); Alkaline Phosphatase 401 U/L (41-126); Bilirubin, Conjugated <0.20 mg/dL (0.20-0.40); Bilirubin,Unconjugated >0.10 mg/dL (0.20-1.00); Blood Urea Nitrogen 9.4 mg/dL (9.0-27.0); Calcium 8.8 mg/dL (8.7-10.3); Carbon Dioxide 33.7 mmol/L (21.6-31.8); Chloride 98 mmol/L (96-109); Globulin 2.3 g/dL (1.6-3.3); Glucose 137 mg/dL (70-110); Potassium 3.5 mmol/L (3.5-5.5); Sodium 140 mmol/L (135-145); Total Bilirubin 0.3 mg/dL (0.3-1.2); Total Protein 5.9 g/dL (6.2-8.2)
[2024-05-19 12:06] LABS: Glucose,Whole Blood 140 mg/dL (70-110)
[2024-05-19 12:07] LABS: Albumin 3.3 g/dL (3.5-5.0); Albumin/Globulin Ratio 1.4; Bilirubin,Unconjugated 0.2 mg/dL (0.0-1.1); Globulin 2.3 g/dL; Total Bilirubin 0.4 mg/dL (0.2-1.3); Total Protein 5.6 g/dL (6.3-8.2)
--- NOTE | 2024-05-19 14:02 | P.PN ---
Subjective Progress Note Date: 05/19/24 05/18/2024, the patient is less short of breath compared to yesterday. She remains on oxygen at 3 L/min nasal cannula. No significant chest pain. No cough or sputum production. No altered mentation. Ultrasound of the liver showed no acute process. LFTs are essentially improving. Sodium is at 137, b icarb is at 32, BUN 17 with a creatinine of 0.4. AST that is down to 666, ALT is down to 797, alkaline phosphatase down to 431. 05/19/2024, no new complaints. Stress test is stable. LFTs are improving. The patient has no specific complaints. She remains on oxygen at 3 L/min nasal cannula. She remains on IV Solu-Medrol 60 mg every 6 hours, Ventolin updrafts [id number]. No altered mentation. No nausea vomiting or chest pain. Electrocardiogram with a hemoglobin of 0.9 and a platelet count of 226. Rest of the electrolytes are all within normal limits. Electrolytes were checked and the patient's LFTs are improving. Objective - Vital Signs Vital signs: Vital Signs Temp 97.8 F 05/19/24 06:59 Pulse 80 05/19/24 11:06 Resp 17 05/19/24 06:59 BP 186/69 05/19/24 06:59 Pulse Ox 99 05/19/24 06:59 FiO2 Intake & Output 05/18/24 05/19/24 05/19/24 18:59 06:59 18:59 Intake Total 300 240 Balance 300 240 Intake: Oral 300 240 Other: Voiding Method Toilet Toilet # Voids 0 3 - Exam GENERAL EXAM: Alert, 74-year-old white female, on 3 L/min nasal cannula, fairly comfortable in no apparent distress. HEAD: Normocephalic and atraumatic EYES: Normal reaction of pupils, equal size. NOSE: Clear with pink turbinates. THROAT: No erythema or exudates. NECK: No masses, no JVD. CHEST: No chest wall deformity, subcutaneous emphysema, or crepitus. LUNGS: Equal air entry with markedly diminished lung sounds throughout. No cr ackles, wheeze, rhonchi or dullness. On 3 L/min nasal cannula. Some conversational dyspnea and pursed lip breathing noted CVS: S1 and S2 normal with no audible murmur, regular rhythm. No extra heart sounds ABDOMEN: No hepatosplenomegaly, active bowel sounds, no guarding or rigidity. SPINE: No scoliosis or deformity SKIN: No rashes CENTRAL NERVOUS SYSTEM: No focal deficits, tone is normal in all 4 extremities. EXTREMITIES: There is no peripheral edema, clubbing, or cyanosis. Peripheral pulses are intact. Right lower extremity active ROM limited by pain. No popping more crepitus. No significant bruising. - Labs CBC & Chem 7: 05/19/24 04:05 05/19/24 04:05 Labs: Abnormal Lab Results - Last 24 Hours (Table) 05/18/24 05/18/24 05/19/24 Range/Units 17:09 19:42 04:05 RBC 2.89 L (4.10-5.20) X 10*6/uL Hgb 9.9 L (12.0-15.0) g/dL Hct 31.5 L (37.2-46.3) % MCV 109.0 H (80.0-97.0) FL MCH 34.3 H (27.0-32.0) pg MCHC 31.4 L (32.0-37.0) g/dL Immature Gran # 0.05 H (0.00-0.04) X 10*3/uL Neutrophils # 8.28 H (1.80-7.70) X 10*3/uL Lymphocytes # 0.42 L (0.90-5.00) X 10*3/uL Eosinophils # 0 L (0.04-0.35) X 10*3/uL Carbon Dioxide (21.6-31.8) mmol/L Creatinine (0.6-1.5) mg/dL BUN/Creatinine Ratio (12.00-20.00) Ratio Glucose (70-110) mg/dL POC Glucose (mg/dL) 123 H 146 H (70-110) mg/dL Unconjugated Bilirubin (0.20-1.00) mg/dL AST (13-35) U/L ALT (8-44) U/L Alkaline Phosphatase (41-126) U/L Total Protein (6.2-8.2) g/dL Albumin (3.8-4.9) g/dL Albumin/Globulin Ratio (1.60-3.17) Ratio 05/19/24 05/19/24 05/19/24 Range/Units 04:05 05:33 11:34 RBC (4.10-5.20) X 10*6/uL Hgb (12.0-15.0) g/dL Hct (37.2-46.3) % MCV (80.0-97.0) FL MCH (27.0-32.0) pg MCHC (32.0-37.0) g/dL Immature Gran # (0.00-0.04) X 10*3/uL Neutrophils # (1.80-7.70) X 10*3/uL Lymphocytes # (0.90-5.00) X 10*3/uL Eosinophils # (0.04-0.35) X 10*3/uL Carbon Dioxide 33.7 H (21.6-31.8) mmol/L Creatinine 0.4 L (0.6-1.5) mg/dL BUN/Creatinine Ratio 23.50 H (12.00-20.00) Ratio Glucose 137 H (70-110) mg/dL POC Glucose (mg/dL) 140 H (70-110) mg/dL Unconjugated Bilirubin >0.10 L (0.20-1.00) mg/dL AST 238 H 187 H (13-35) U/L ALT 633 H 536 H (8-44) U/L Alkaline Phosphatase 401 H 318 H (41-126) U/L Total Protein 5.9 L 5.6 L (6.2-8.2) g/dL Albumin 3.6 L 3.3 L (3.8-4.9) g/dL Albumin/Globulin Ratio 1.57 L (1.60-3.17) Ratio 05/19/24 Range/Units 12:04 RBC (4.10-5.20) X 10*6/uL Hgb (12.0-15.0) g/dL Hct (37.2-46.3) % MCV (80.0-97.0) FL MCH (27.0-32.0) pg MCHC (32.0-37.0) g/dL Immature Gran # (0.00-0.04) X 10*3/uL Neutrophils # (1.80-7.70) X 10*3/uL Lymphocytes # (0.90-5.00) X 10*3/uL Eosinophils # (0.04-0.35) X 10*3/uL Carbon Dioxide (21.6-31.8) mmol/L Creatinine (0.6-1.5) mg/dL BUN/Creatinine Ratio (12.00-20.00) Ratio Glucose (70-110) mg/dL POC Glucose (mg/dL) 140 H (70-110) mg/dL Unconjugated Bilirubin (0.20-1.00) mg/dL AST (13-35) U/L ALT (8-44) U/L Alkaline Phosphatase (41-126) U/L Total Protein (6.2-8.2) g/dL Albumin (3.8-4.9) g/dL Albumin/Globulin Ratio (1.60-3.17) Ratio Assessment and Plan Assessment: Mechanical fall, patient reportedly was tangled in her oxygen cord Suspect acute COPD exacerbation Acute on chronic dyspnea, secondary to above Acute on chronic hypoxemic respiratory failure Chronic obstructive pulmonary disease, with an FEV1 34% of predicted, normally maintained on Trelegy maintenance inhaler and albuterol nebs [id number]. Chronic hypoxemic respiratory failure, normally maintained on 2 L/min nasal cannula at home Severe cardiomyopathy, with a baseline ejection fraction of 25 to 30% Coronary artery disease with previous PCI/stenting of the RCA Chronic ongoing tobacco dependence, still smokes 1-2 cigarettes on and off Generalized weakness History of hypertension History of hyperlipidemia Anxiety Plan: Clinically improved Monitor LFTs and LFTs are also improving Ultrasound the liver was essentially within normal limits and LFTs are improving Will start prednisone burst taper and possible discharge home today.
[2024-05-19 14:21] VITALS: BP 145/58; RESP 18; TEMP 98.3
[2024-05-19] MEDS: predniSONE 20 MG TAB PO SCH (15:01)
[2024-05-19 15:27] VITALS: PULSE 80
[2024-05-19 17:05] LABS: Glucose,Whole Blood 143 mg/dL (70-110)
--- NOTE | 2024-05-24 10:39 | P.DS ---
Providers Date of admission: 05/16/24 16:26 Attending physician: Junior Valenzuela Consults: 05/16/24 16:22 Consult Physician Routine Consulting Provider: Virgil Walter Consult Reason/Comments: known Do you want consulting provider notified?: Yes Consult Physician Routine Consulting Provider: Tyrese Rocha Consult Reason/Comments: cp Do you want consulting provider notified?: Yes Primary care physician: Virgil Walter Hospital Course: diagnoses: Fall at home musculoskeletal left-sided chest pain, secondary to fall above, improved Stage IV advanced COPD, with possible mild acute exacerbation Transaminitis Generalized weakness Chronic hypoxic respiratory failure malnutrition Most likely related to her advanced severe COPD Hospital course: This is a pleasant 74 years old female with past medical history of stage IV COPD and she follow-up with Dr. abnegas. She is on 2 to 3 L oxygen at home. She presents because of fall and left-sided chest pain radiating to the left arm. Which is most likely musculoskeletal associated with tenderness, improved with treatment. Also patient evaluated by health lead for acute COPD exacerbation. Patient breathing improved on steroids. Liver enzymes were significantly elevated on admission With AST went up as high as 2189, improved significantly upon discharge to 187 while ALT increase up to 1276, improved down to 536 open discharge. Liver ultr asound was not was unremarkable and patient with no symptoms. No nausea vomiting and she tolerated on the day of discharge I was told by the bedside nurse patient improvement wants to go home and pulmonary service had cleared her for discharge when I went to see the patient she was feeling much better. She denies chest pain, dyspnea improved no other new complaint and she wants to go home. Patient was scheduled for discharge by pulmonary service as above patient will be discharged and tapered prednisone problems and management plan were discussed with the patient and he verbalized understanding and acceptance Patient was found stable and can be discharged home in guarded prognosis however he needs follow-up as an outpatient. Patient was instructed to follow up with PCP Dr. CARCAMO within one week and patient agrees patient was instructed to follow up with Dr. iKrby in 1 week after discharge and she agrees patient was instructed to follow up with employee training specialist Dr. hannon in two weeks and she agrees Physical exam Gen: patient is a AAOx3, no distress CVS: S1-S2, RRR, no murmur Lungs: B/L CTA, no wheezing Abdomen: soft, no distention, no tenderness, positive bowel sounds Extremity: no leg edema or induration Time spent more than 35 minutes Patient Condition at Discharge: Fair Plan - Discharge Summary Discharge Rx Participant: Yes New Discharge Prescriptions: New predniSONE 10 mg PO DIRECTED #40 tab Famotidine [Pepcid] 20 mg PO DAILY #30 tab Continue Fluticasone/Umeclidin/Vilanter [Trelegy Ellipta 200-62.5-25] 1 puff INHALATION RT-DAILY ALPRAZolam [Xanax] 0.5 mg PO BID PRN PRN Reason: Anxiety Albuterol Sulfate [Ventolin HFA] 1 - 2 puff INHALATION RT-Q6H PRN PRN Reason: Shortness Of Breath Atorvastatin Calcium [Lipitor] 40 mg PO DAILY Citalopram Hydrobromide [Citalopram HBr] 40 mg PO DAILY Metoprolol Succinate [Metoprolol Succinate ER] 12.5 mg PO DAILY Ipratropium-Albuterol Nebulize [Duoneb 0.5 mg-3 mg/3 ml Soln] 3 ml INHALATION RT-QID Losartan [Cozaar] 25 mg PO DAILY Discharge Medication List ALPRAZolam [Xanax] 0.5 mg PO BID PRN 11/05/20 [History] Albuterol Sulfate [Ventolin HFA] 1 - 2 puff INHALATION RT-Q6H PRN 11/05/20 [History] Fluticasone/Umeclidin/Vilanter [Trelegy Ellipta 200-62.5-25] 1 puff INHALATION RT-DAILY 11/05/20 [History] Atorvastatin Calcium [Lipitor] 40 mg PO DAILY 09/12/22 [History] Citalopram Hydrobromide [Citalopram HBr] 40 mg PO DAILY 09/12/22 [History] Losartan [Cozaar] 25 mg PO DAILY 09/12/22 [History] Metoprolol Succinate [Metoprolol Succinate ER] 12.5 mg PO DAILY 09/12/22 [History] Ipratropium-Albuterol Nebulize [Duoneb 0.5 mg-3 mg/3 ml Soln] 3 ml INHALATION RT-QID 05/16/24 [History] Famotidine [Pepcid] 20 mg PO DAILY #30 tab 05/19/24 [Rx] predniSONE 10 mg PO DIRECTED #40 tab 05/19/24 [Rx] Follow up Appointment(s)/Referral(s): Aric Cerda MD [STAFF PHYSICIAN] - 2 Weeks Virgil Walter MD [Primary Care Provider] - 1-2 days Activity/Diet/Wound Care/Special Instructions: Heart healthy diet Activity is restricted till you see your doctor Discharge Disposition: HOME WITH HOME HEALTH SERVICES
== END 2024-05-19 18:00 | disposition home health service (06) | DRG 193 ==
LOC: EC 12:16 → 6NMEDSUR 16:26 → OBSVTOIN 05-18 16:44
PROVIDERS: ADMIT Hospitalist; ATTEND Hospitalist
DX: J18.9 Pneumonia, unspecified organism (principal); J96.21 Acute and chronic respiratory failure with hypoxia; J44.1 Chronic obstructive pulmonary disease with (acute) exacerbation; J44.0 Chronic obstructive pulmonary disease with (acute) lower respiratory infection; E46 Unspecified protein-calorie malnutrition; Z68.1 Body mass index [BMI] 19.9 or less, adult; I42.9 Cardiomyopathy, unspecified; E78.5 Hyperlipidemia, unspecified; I10 Essential (primary) hypertension; I25.10 Atherosclerotic heart disease of native coronary artery without angina pectoris; W01.0XXA Fall on same level from slipping, tripping and stumbling without subsequent striking against object, initial encounter; M19.042 Primary osteoarthritis, left hand; M19.041 Primary osteoarthritis, right hand; F41.9 Anxiety disorder, unspecified; Z95.5 Presence of coronary angioplasty implant and graft; Z99.81 Dependence on supplemental oxygen; Y92.009 Unspecified place in unspecified non-institutional (private) residence as the place of occurrence of the external cause; Z11.52 Encounter for screening for COVID-19; Z79.899 Other long term (current) drug therapy; Z87.891 Personal history of nicotine dependence
CPT/HCPCS: 36415; 71046; 73521; 76705; 80048; 80053; 80076; 81001; 82248; 83036; 83605; 83735; 83880; 84100; 84484; 85025; 85610; 85730; 87636; 93005; 94640; 94760; 96361; 96374; 96375; 96376; 99291